=== PATIENT | male | born 1960 | race Caucasian/White ===

== ENCOUNTER 2022-12-05 14:17 | Emergency (ER) | payer BC, SELFPAY ==
[2022-12-05 14:26] VITALS: BP 142/64; PULSE 83; RESP 18; TEMP 36.4; O2SAT 96; BMI 34.5
[2022-12-05 14:54] VITALS: PULSE 85
--- NOTE | 2022-12-05 14:56 | ED.SOB1 ---
HPI - SOB/Dyspnea General Chief Complaint: Shortness of Breath/Dyspnea Stated Complaint: SOB Time Seen by Provider: 12/05/22 14:47 Source: patient Mode of arrival: walk-in Limitations: no limitations History of Present Illness HPI Narrative: patient is a 61-year-old male who presents to the emergency department for several week history of exertional dyspnea. 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 He has had no chest pain. He denies any fevers, cough, congestion. He has not noticed any peripheral edema. He quit smoking four years ago. He denies any history of heart or lung problems. He does not take any medications at home for his breathing. He has not seen a primary care provider as his PCP recently left the area. Related Data Previous Rx's Medication Instructions Recorded albuterol sulfate 90 mcg/actuation 2 inh inhalation Q4H PRN shortness 12/05/22 aerosol inhaler of breath or wheezing #8.5 grams methylprednisolone 4 mg tablets in See Rx Instructions .Route 12/05/22 a dose pack (Medrol (Yasir)) .COMPLEX #21 ea Allergies Allergy/AdvReac Type Severity Reaction Status Date / Time No Known Drug Allergies Allergy Verified 12/05/22 14:26 Review of Systems ROS Constitutional Denies: fever or chills Ears, nose, mouth, and throat Denies: throat pain Cardiovascular Denies: chest pain Respiratory Reports: shortness of breath; Denies: cough Gastrointestinal Denies: nausea or vomiting Genitourinary Denies: painful urination Musculoskeletal Denies: back pain Integumentary/Breast Denies: rash Neurological Denies: headache Hematologic/Lymphatic Denies: easy bruising Exam Narrative Exam Narrative: Gen.: Awake, alert, in no distress Head: Normocephalic, atraumatic ENT: Moist mucous membranes Respiratory: No respiratory distress, lungs clear bilaterally Cardio: Regular rate and rhythm Extremities: Moves extremities equally, no pedal edema Psych: Normal mood and affect Neuro: No focal neuro deficit Skin: Warm, dry, intact Constitutional Vital Signs, click to edit/add: Last Vital Signs Temp 97.6 F 12/05/22 14:26 Pulse 83 12/05/22 14:26 Resp 18 12/05/22 14:26 BP 142/64 H 12/05/22 14:26 Pulse Ox 96 12/05/22 14:26 O2 Del Method Room Air 12/05/22 14:26 Course Vital Signs Vital signs: Vital Signs Temperature 97.6 F 12/05/22 14:26 Pulse Rate 83 12/05/22 14:26 Respiratory Rate 18 12/05/22 14:26 Blood Pressure 142/64 H 12/05/22 14:26 Pulse Oximetry 96 12/05/22 14:26 Oxygen Delivery Method Room Air 12/05/22 14:26 Temperature 97.6 F 12/05/22 14:26 Pulse Rate 83 12/05/22 14:26 Respiratory Rate 18 12/05/22 14:26 Blood Pressure 142/64 H 12/05/22 14:26 Pulse Oximetry 96 12/05/22 14:26 Oxygen Delivery Method Room Air 12/05/22 14:26 MDM - SOB/Dyspnea MDM Narrative Medical decision making narrative: laboratory studies including d-dimer, troponin and BNP are all within normal limits. Patient has stable vital signs in the Emergency Room. Chest x-ray shows suggestion of chronic obstructive pulmonary disease. Patient denied initially any history of chronic obstructive pulmonary disease or asthma. He was made aware that the symptoms may be consistent with chronic obstructive pulmonary disease and he will be placed on an albuterol inhaler as needed as well as Medrol Dosepak. He was reevaluated by attending physician prior to discharge. He is given a follow-up list of PCPs in the area that he can see, return to the Emergency Room if symptoms change or worsen. Medical Records Attestation: I reviewed the patient's medical records. Lab Data Attestation: I reviewed the patient's lab results. Labs: Lab Results 12/05/22 Range/Units 14:58 WBC 5.8 (4.0-11.0) 10^3/uL RBC 4.73 (4.70-6.10) 10^6/uL Hgb 13.7 L (14.0-18.0) g/dL Hct 40.2 L (42.0-54.0) % MCV 85.0 (80.0-94.0) fL MCH 29.0 (25.9-34.0) pg MCHC 34.1 (29.9-35.2) g/dL RDW 12.1 (11.0-15.0) % Plt Count 191 (150-450) 10^3/uL MPV 11.2 (9.5-13.5) fL Neut % (Auto) 64.5 (43.0-75.0) % Lymph % (Auto) 19.9 L (20.5-60.0) % [place] % (Auto) 13.7 H (1.7-12.0) % Eos % (Auto) 1.4 (0.9-7.0) % Baso % (Auto) 0.3 (0.2-2.0) % Neut # (Auto) 3.8 (1.4-6.5) 10^3/uL Lymph # (Auto) 1.2 (1.2-3.8) 10^3/uL [place] # (Auto) 0.8 (0.3-0.8) 10^3/uL Eos # (Auto) 0.1 (0.0-0.7) 10^3/uL Baso # (Auto) 0.0 (0.0-0.1) 10^3/uL Abs Immat Gran (auto) 0.01 (0.00-0.03) 10^3/uL Imm/Tot Granulo (auto) 0.2 (0.0-0.5) % PT 11.3 (9.0-11.6) sec INR 1.07 APTT 26.2 (22.3-36.2) sec D-Dimer 0.56 (<=0.59) mg/L FEU Sodium 142 (136-145) mmol/L Potassium 4.2 (3.5-5.1) mmol/L Chloride 104 (98-107) mmol/L Carbon Dioxide 29.4 (21.0-32.0) mmol/L Anion Gap 12.8 BUN 22.0 H (7.0-18.0) mg/dL Creatinine 1.00 (0.70-1.30) mg/dL Est GFR ( Amer) >60 (>=60) Est GFR (Non-Af Amer) >60 (>=60) BUN/Creatinine Ratio 22.0 Glucose 108 H (74-106) mg/dL Calcium 8.8 (8.5-10.1) mg/dL Total Bilirubin 0.4 (0.2-1.0) mg/dL AST 20 (15-37) U/L ALT 28 (16-63) U/L Alkaline Phosphatase 66 (46-116) U/L Troponin I High Sens 13.6 (4.0-76.1) pg/mL NT-Pro-B Natriuret Pep 118.0 (<=900.0) pg/mL Total Protein 7.1 (6.4-8.2) g/dL Albumin 3.4 (3.4-5.0) g/dL Globulin 3.7 g/dL Albumin/Globulin Ratio 0.9 Imaging Data Chest x-ray: Attestation: I have reviewed the pertinent imaging results. Radiologist's impression: Procedure: XR chest 2V EXAM: XR chest 2V HISTORY: Shortness of breath COMPARISON: 07/17/2019 TECHNIQUE: Upright PA and lateral chest x-ray FINDINGS: The heart is not enlarged and the vasculature is not distended. Very slight patchy interstitial changes are seen in the right midlung and the left lower lung, and these remain unchanged and presumably chronic in nature. There is no evidence of an acute infiltrate, effusion or pneumothorax. Mild flattening of the hemidiaphragms suggest COPD. The osseous structures are grossly intact. IMPRESSION: Some chronic changes are present in the lungs. There is no clear evidence of an acute infiltrate or overt cardiac decompensation, and the overall appearance of the chest is essentially unchanged. Electronically authenticated by: MATT COELLO Date: 12/05/2022 16:15 ECG Data Attestation: I personally reviewed and interpreted this ECG as follows: (normal sinus rhythm at a rate of eighty-five, no acute ST elevation or ectopy. EKG reviewed by attending physician) ECG interpretation date: 12/05/22 ECG interpretation time: 14:58 Discharge Plan Discharge Chief Complaint: Shortness of Breath/Dyspnea Clinical Impression: Shortness of breath, COPD exacerbation Patient Disposition: Home, Self-Care Time of Disposition Decision: 16:33 Condition: Good Prescriptions / Home Meds: New methylprednisolone [Medrol (Yasir)] 4 mg tablets,dose pack See Rx Instructions .ROUTE .COMPLEX Qty: 21 0RF Rx Instructions: Taper as directed albuterol sulfate 90 mcg/actuation HFA aerosol inhaler 2 inh inhalation Q4H PRN (Reason: shortness of breath or wheezing) Qty: 8.5 0RF Instructions: COPD (Chronic Obstructive Pulmonary Disease) (ED), Shortness of Breath (ED) Stand Alone Forms: Portal Instructions Referrals: Physician,Non-Staff, MD [Primary Care Provider] - 1 week
[2022-12-05 15:06] LABS: Basophils Percent Auto 0.3 % (0.2-2.0); Eosinophils Absolute Auto 0.1 10^3/uL (0.0-0.7); Eosinophils Percent Auto 1.4 % (0.9-7.0); Hematocrit 40.2 % (42.0-54.0); Hemoglobin 13.7 g/dL (14.0-18.0); Immature Granulocytes Abs Auto 0.01 10^3/uL (0.00-0.03); Immature Granulocytes Pct Auto 0.2 % (0.0-0.5); Lymphocytes Absolute Auto 1.2 10^3/uL (1.2-3.8); Lymphocytes Percent Auto 19.9 % (20.5-60.0); Mean Corpuscular HGB Conc 34.1 g/dL (29.9-35.2); Mean Platelet Volume 11.2 fL (9.5-13.5); Monocytes Absolute Auto 0.8 10^3/uL (0.3-0.8); Monocytes Percent Auto 13.7 % (1.7-12.0); Neutrophils Absolute Auto 3.8 10^3/uL (1.4-6.5); Neutrophils Percent Auto 64.5 % (43.0-75.0); Platelet Count 191 10^3/uL (150-450); Red Blood Count 4.73 10^6/uL (4.70-6.10); Red Cell Distribution Width 12.1 % (11.0-15.0); White Blood Count 5.8 10^3/uL (4.0-11.0)
[2022-12-05 15:18] LABS: D Dimer 0.56 mg/L FEU (<=0.59); INR 1.07; Partial Thromboplastin Time 26.2 sec (22.3-36.2); Prothrombin Time 11.3 sec (9.0-11.6)
[2022-12-05 15:28] LABS: Alanine Aminotransferase 28 U/L (16-63); Albumin Globulin Ratio 0.9; Albumin Level 3.4 g/dL (3.4-5.0); Alkaline Phosphatase 66 U/L (46-116); Anion Gap 12.8; Aspartate Amino Transferase 20 U/L (15-37); Bilirubin Total 0.4 mg/dL (0.2-1.0); Calcium 8.8 mg/dL (8.5-10.1); Carbon Dioxide 29.4 mmol/L (21.0-32.0); Chloride 104 mmol/L (98-107); Estimated GFR (African America >60 (>=60); Estimated GFR (Non-African Ame >60 (>=60); Globulin 3.7 g/dL; Glucose 108 mg/dL (74-106); Potassium 4.2 mmol/L (3.5-5.1); Sodium 142 mmol/L (136-145); Total Protein 7.1 g/dL (6.4-8.2); Troponin I High Sensitivity 13.6 pg/mL (4.0-76.1)
--- NOTE | 2022-12-05 15:29 | XR_ITS ---
The [address] [address] Patient Name: ALEX PADILLA MRN: [id number] date: 1960 Sex: M Assigned Patient Location: ER Current Patient Location: ER Accession/Order Number: [id number] Exam Date: 12/05/2022 15:55 Report Date: 12/05/2022 16:15 At the request of: SOFIA DARNELL Procedure: XR chest 2V EXAM: XR chest 2V HISTORY: Shortness of breath COMPARISON: 07/17/2019 TECHNIQUE: Upright PA and lateral chest x-ray FINDINGS: The heart is not enlarged and the vasculature is not distended. Very slight patchy interstitial changes are seen in the right midlung and the left lower lung, and these remain unchanged and presumably chronic in nature. There is no evidence of an acute infiltrate, effusion or pneumothorax. Mild flattening of the hemidiaphragms suggest COPD. The osseous structures are grossly intact. XR/XR chest 2V IMPRESSION: Some chronic changes are present in the lungs. There is no clear evidence of an acute infiltrate or overt cardiac decompensation, and the overall appearance of the chest is essentially unchanged. Electronically authenticated by: MATT COELLO Date: 12/05/2022 16:15
[2022-12-05 16:43] VITALS: BP 140/60; PULSE 880; RESP 18; O2SAT 98
--- NOTE | 2022-12-05 18:39 | ECG_ITS ---
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
== END 2022-12-05 16:44 | disposition home or self-care (01) ==
PROVIDERS: Physician Assistant; Emergency Provider Emergency Medicine
DX: J44.1 Chronic obstructive pulmonary disease with (acute) exacerbation (principal); R06.02 Shortness of breath; Z87.891 Personal history of nicotine dependence
CPT/HCPCS: 36415; 71046; 80053; 83880; 84484; 85025; 85378; 85610; 85730; 93005; 99284

== ENCOUNTER 2022-12-22 07:50 | Outpatient (OUT) | payer BC, SELFPAY ==
--- NOTE | 2022-12-22 07:52 | CT_ITS ---
The [address] [address] Patient Name: ALEX PADILLA MRN: [id number] date: 1960 Sex: M Assigned Patient Location: CT Current Patient Location: CT Accession/Order Number: [id number] Exam Date: 12/22/2022 08:00 Report Date: 12/22/2022 08:29 At the request of: ADALGISA RASCON Procedure: CT lung screening low-dose EXAMINATION: CT lung screening low-dose HISTORY: Shortness Of Breath COMPARISON: No relevant comparison available. TECHNIQUE: Axial, Coronal, and Sagittal images were created without the administration of IV contrast material. Dose reduction techniques were achieved by using automated exposure control and/or adjustment of mA and/or kV according to patient size and/or use of iterative reconstruction technique. FINDINGS: LUNGS: Scattered subcentimeter noncalcified pulmonary nodules the largest measures 5 mm right middle lobe axial image #119 6 mm in the lingula, axial image 104. Minimal centrilobular emphysema with an upper lobe predominance PLEURA: Calcified pleural plaques posterior left lung suggests prior asbestos exposure VASCULATURE: No abnormality. MARIA ISABEL: No mass or pathologic adenopathy. MEDIASTINUM: No mass or pathologic adenopathy. CARDIAC: No enlargement, pericardial thickening, or significant calcification. AORTA: No aneurysm or dissection. CHEST WALL: No mass or axillary adenopathy BONES: No bone lesion or fracture. LIMITED ABDOMEN: No suspicious findings. Limited images of the upper abdomen. OTHER: Negative. CT/CT lung screening low-dose IMPRESSION: LUNG SCREENING: Lung-RADS Category 2- Benign Appearance or Behavior. Nodules with a very low likelihood of becoming a clinically active cancer due to size or lack of growth. 2. Continue annual screening with LDCT in 12 months. Electronically authenticated by: KORY SEWELL Date: 12/22/2022 08:29
--- NOTE | 2022-12-22 08:30 | RT_ITS ---
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 Findings were considered accurate and reproducible. Both pre- and post-bronchodilator values utilized for spirometry. Due to software limitations, no prior studies (if performed previously) are currently available for comparison. Spirometry (based on pre-bronchodilator values): -FEV1/FVC: Reduced @ 45% -FEV1: Severely reduced @ 41% -FVC: Reduced @ 69% -There is a positive bronchodilator response in FEV1 and FVC. Lung volumes by plethysmography (based on pre-bronchodilator values): -RV: Increased @ 515% -TLC: Increased @ 218% Diffusion capacity: -DLCO: Mild reduction @ 71% when corrected for Hb 13.7g/dL Flow-volume loop: -Severe obstructive pattern Flow-pressure loop: ???Emphysematous pattern Impressions: -Spirometry suggests severe obstruction with a positive bronchodilator response. An elevated RV and TLC suggest air trapping and hyperinflation respectively. There is a mildly reduced diffusion capacity. Overall study is compatible with asthma-COPD overlap or COPD with a positive bronchidlator response. Clinical correlation required. Electronically Signed On 01-02-2023 16:07:11 EDT by Vasquez Pritchett
[2022-12-22 09:22] VITALS: PULSE 88; RESP 20; O2SAT 94
[2022-12-22] MEDS: ALBUTEROL SULFATE 2.5 MG/3 ML VIAL NEB IH (09:22)
== END 2022-12-22 07:51 | disposition home or self-care (01) ==
LOC: CT 07:51
PROVIDERS: Visit Provider Internal Medicine
DX: R06.02 Shortness of breath (principal); Z87.891 Personal history of nicotine dependence
CPT/HCPCS: 71271; 94060; 94726; 94729

== ENCOUNTER 2022-12-27 09:07 | Outpatient (OUT) | payer BC, SELFPAY ==
[2022-12-27 09:18] LABS: Basophils Percent Auto 0.3 % (0.2-2.0); Eosinophils Absolute Auto 0.2 10^3/uL (0.0-0.7); Eosinophils Percent Auto 2.5 % (0.9-7.0); Hematocrit 42.5 % (42.0-54.0); Hemoglobin 14.3 g/dL (14.0-18.0); Immature Granulocytes Abs Auto 0.01 10^3/uL (0.00-0.03); Immature Granulocytes Pct Auto 0.1 % (0.0-0.5); Lymphocytes Absolute Auto 1.3 10^3/uL (1.2-3.8); Lymphocytes Percent Auto 18.9 % (20.5-60.0); Mean Corpuscular HGB Conc 33.6 g/dL (29.9-35.2); Mean Corpuscular Hemoglobin 27.3 pg (25.9-34.0); Mean Corpuscular Volume 81.3 fL (80.0-94.0); Mean Platelet Volume 11.1 fL (9.5-13.5); Monocytes Absolute Auto 0.7 10^3/uL (0.3-0.8); Monocytes Percent Auto 10.7 % (1.7-12.0); Neutrophils Absolute Auto 4.6 10^3/uL (1.4-6.5); Neutrophils Percent Auto 67.5 % (43.0-75.0); Platelet Count 191 10^3/uL (150-450); Red Blood Count 5.23 10^6/uL (4.70-6.10); Red Cell Distribution Width 11.8 % (11.0-15.0); White Blood Count 6.8 10^3/uL (4.0-11.0)
[2022-12-27 09:33] LABS: Alanine Aminotransferase 40 U/L (16-63); Albumin Globulin Ratio 0.9; Albumin Level 3.2 g/dL (3.4-5.0); Alkaline Phosphatase 82 U/L (46-116); Anion Gap 11.4; Aspartate Amino Transferase 19 U/L (15-37); BUN Creatinine Ratio 20.2; Bilirubin Total 0.6 mg/dL (0.2-1.0); Calcium 9.8 mg/dL (8.5-10.1); Carbon Dioxide 28.7 mmol/L (21.0-32.0); Chloride 105 mmol/L (98-107); Estimated GFR (African America >60 (>=60); Estimated GFR (Non-African Ame >60 (>=60); Globulin 3.7 g/dL; Glucose 110 mg/dL (74-106); Potassium 4.1 mmol/L (3.5-5.1); Sodium 141 mmol/L (136-145); Total Protein 6.9 g/dL (6.4-8.2)
[2022-12-27 09:39] LABS: Estimated Average Glucose 108 mg/dL; Glycohemoglobin A1C 5.4 % (4.5-6.2)
[2022-12-27 09:55] LABS: Chol HDL Ratio 1.9; Cholesterol 74 mg/dL (<=200); HDL Cholesterol 38 mg/dL (40-60); Thyroid Stimulating Hormone <0.007 uIU/mL (0.358-3.740); Triglycerides 92 mg/dL (<=150); VLDL CHOLESTEROL 18.4 mg/dL
[2022-12-27 11:28] LABS: Free T4 4.91 ng/dL (0.76-1.46)
== END 2022-12-27 09:08 | disposition home or self-care (01) ==
LOC: LAB 09:07
PROVIDERS: PCP Nurse Practitioner Family; Visit Provider Nurse Practitioner Family
DX: R61 Generalized hyperhidrosis (principal); R73.01 Impaired fasting glucose; Z13.228 Encounter for screening for other metabolic disorders; Z13.0 Encounter for screening for diseases of the blood and blood-forming organs and certain disorders involving the immune mechanism; Z13.220 Encounter for screening for lipoid disorders
CPT/HCPCS: 36415; 80053; 80061; 83036; 84439; 84443; 85025

== ENCOUNTER 2023-01-03 08:44 | Outpatient (OUT) | payer BC, SELFPAY ==
[2023-01-03 09:02] LABS: Basophils Percent Auto 0.3 % (0.2-2.0); Eosinophils Absolute Auto 0.2 10^3/uL (0.0-0.7); Hematocrit 38.3 % (42.0-54.0); Hemoglobin 12.7 g/dL (14.0-18.0); Immature Granulocytes Abs Auto 0.02 10^3/uL (0.00-0.03); Immature Granulocytes Pct Auto 0.3 % (0.0-0.5); Lymphocytes Absolute Auto 1.4 10^3/uL (1.2-3.8); Lymphocytes Percent Auto 19.2 % (20.5-60.0); Mean Corpuscular HGB Conc 33.2 g/dL (29.9-35.2); Mean Corpuscular Hemoglobin 27.1 pg (25.9-34.0); Mean Corpuscular Volume 81.7 fL (80.0-94.0); Mean Platelet Volume 10.9 fL (9.5-13.5); Monocytes Percent Auto 14.5 % (1.7-12.0); Neutrophils Absolute Auto 4.4 10^3/uL (1.4-6.5); Neutrophils Percent Auto 62.7 % (43.0-75.0); Platelet Count 211 10^3/uL (150-450); Red Blood Count 4.69 10^6/uL (4.70-6.10); Red Cell Distribution Width 11.9 % (11.0-15.0); White Blood Count 7.1 10^3/uL (4.0-11.0)
[2023-01-06 04:07] LABS: Immunoglobulin E, Total 5 IU/mL (6-495)
== END 2023-01-03 08:45 | disposition home or self-care (01) ==
LOC: LAB 08:46
PROVIDERS: PCP Nurse Practitioner Family; Visit Provider Internal Medicine
DX: J45.40 Moderate persistent asthma, uncomplicated (principal)
CPT/HCPCS: 36415; 82785; 85025

== ENCOUNTER 2023-01-16 14:22 | Outpatient (OUT) | payer BC, SELFPAY ==
[2023-01-16 16:01] LABS: Alanine Aminotransferase 34 U/L (16-63); Albumin Globulin Ratio 0.9; Albumin Level 3.1 g/dL (3.4-5.0); Alkaline Phosphatase 100 U/L (46-116); Aspartate Amino Transferase 16 U/L (15-37); Bilirubin Direct 0.1 mg/dL (0.0-0.2); Bilirubin Total 0.3 mg/dL (0.2-1.0); Free T3 17.33 pg/mL (2.18-3.98); Globulin 3.6 g/dL; Thyroid Stimulating Hormone <0.007 uIU/mL (0.358-3.740); Total Protein 6.7 g/dL (6.4-8.2)
[2023-01-16 16:32] LABS: Free T4 3.92 ng/dL (0.76-1.46)
[2023-01-17 18:07] LABS: Thyroglobulin Antibody <1.0 IU/mL (0.0-0.9); Thyroid Peroxidase (TPO) Ab 13 IU/mL (0-34)
== END 2023-01-16 14:23 | disposition home or self-care (01) ==
LOC: LAB 14:24
PROVIDERS: PCP Nurse Practitioner Family; Visit Provider Internal Medicine
DX: E05.90 Thyrotoxicosis, unspecified without thyrotoxic crisis or storm (principal)
CPT/HCPCS: 36415; 80076; 84439; 84443; 84481; 86376; 86800

== ENCOUNTER 2023-01-19 13:55 | Outpatient (OUT) | payer BC, SELFPAY ==
--- NOTE | 2023-01-19 13:58 | US_ITS ---
The [address] [address] Patient Name: ALEX PADILLA MRN: [id number] date: 1960 Sex: M Assigned Patient Location: US Current Patient Location: Accession/Order Number: [id number] Exam Date: 01/19/2023 14:00 Report Date: 01/20/2023 09:24 At the request of: SWATI NEWBY Procedure: US thyroid EXAMINATION: US thyroid HISTORY: Thyrotoxicosis E05.90 COMPARISON: No relevant comparison available. TECHNIQUE: Sonographic images of the thyroid gland were obtained. FINDINGS: The right thyroid lobe measures 7.1 x 2.6 x 3.5 cm. Heterogeneous echotexture. No focal nodule. The thyroid isthmus measures 3.2 mm, heterogeneous. No focal nodule The left thyroid lobe measures 5.3 x 2.7 x 3.0 cm. Heterogeneous echotexture. No significant nodules over 5 mm US/US thyroid IMPRESSION: Enlarged heterogeneous thyroid gland with no significant nodules Electronically authenticated by: KORY SEWELL Date: 01/20/2023 09:24
== END 2023-01-19 13:56 | disposition home or self-care (01) ==
LOC: US 13:55
PROVIDERS: PCP Nurse Practitioner Family; Visit Provider Internal Medicine
DX: E05.90 Thyrotoxicosis, unspecified without thyrotoxic crisis or storm (principal); E04.9 Nontoxic goiter, unspecified
CPT/HCPCS: 76536

== ENCOUNTER 2023-12-25 15:35 | Outpatient (OUT) | payer OTHER, SELFPAY ==
--- OUTSIDE RECORDS SUMMARY | 2023-12-25 15:39 | XMS_ITS | CCD ---
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 Name Role Phone HOUSE, DR WILKINS Attending Unavailable HOUSE, DR WILKINS Consulting Unavailable HOUSE, DR WILKINS Primary Care Unavailable DANNY, DR WILKINS Admitting Unavailable Giovany Krishna Unavailable MD Giovany Krishna Attending Provider [phone] DO Len Delgado Primary Care Provider [phone] DO Len Delgado Attending Provider [phone] MD Giovany Krishna Attending Provider JUNIOR Ann Attending Provider [phone] Milagro Ann Unavailable Tracy Wong Unavailable Milagro Mejias Unavailable MIGUEL Mejias Primary Care Provider MIGUEL Mejias Attending Provider MIGUEL Mejias Primary Care Provider MIGUEL Mejias Attending Provider MD Kourtney Woods Other Provider MIGUEL Mejias Primary Care Provider MD Kourtney Woods Attending Provider [phone] Milagro Mejias Attending Unavailable Milagro Mejias Admitting Unavailable Milagro Mejias Primary Care Unavailable Kourtney Woods Admitting Unavailable Kourtney Woods Attending Unavailable Milagro Mejias Primary Care Unavailable Milagro Mejias Admitting Unavailable Kourtney Woods Consulting Unavailable Milagro Mejias Primary Care Unavailable Milagro Mejias Attending Unavailable Milagro Mejias Attending Unavailable Milagro Mejias Admitting Unavailable Milagro Mejias Primary Care Unavailable Medications Current Medications Medication Drug Class(es) Dates Sig (Normalized) Sig (Original) acetaminophen 325 mg / HYDROcodone bitartrate 5 mg oral tablet (3 sources) Opioid Agonist Start: 04-18-2022 take 1 tablet by mouth every four hours as needed for pain HYDROcodone-Aceta minophen 5-325 MG 1 tablet as needed for pain Orally up to every 4 hrs for 5 days ENZO: [id number] Mar, Active [id number] actuat albuterol 0.09 mg/actuat metered dose inhaler (8 sources) beta2-Adrenergic Agonist Start: 05-29-2023 take 1 puff(s) by inhalation every four hours Albuterol Sulfate Active 1 PUFF INHALATION Every 4 hours May 29, 2023 12:00am take 1 puff(s) by in halation every four hours as needed Albuterol Sulfate HFA 108 (90 Base) MCG/ACT 1 puff as needed Inhalation every 4 hrs Active take 1 puff(s) by in halation every four hours as needed Albuterol Sulfate HFA 108 (90 Base) MCG/ACT 1 puff as needed Inhalation every 4 hrs Active take 1 puff(s) by in halation every four hours as needed Albuterol Sulfate HFA 108 (90 Base) MCG/ACT 1 puff as needed Inhalation every 4 hrs Active azithromycin 250 mg oral tablet (4 sources) Macrolide Antimicrobial Start: 05-29-2023 Azithromycin Active 250 MG PO daily 6 May 29, 2023 12:00am Take 2 on the 1st day and then 1 for the next 4 days. Start: 10-15-2022 Azithromycin 2 50 MG 2 tablet on first day, 1 tablet daily for 4 days Orally daily for 5 days Sep, Active diclofenac sodium 75 mg delayed release oral tablet (5 sources) Nonsteroidal Anti-inflammatory Drug Start: 05-13-2022 take 1 tablet by mouth every twelve hours Diclofenac Sodium 75 MG 1 tablet as needed Orally Twice a day for 30 days Apr, Active doxycycline monohydrate 100 mg oral capsule (1 source) Tetracycline-class Drug Start: 04-06-2023 take 1 capsule by mouth every twelve hours Doxycycline Monohydrate 100 MG 1 capsule Orally Twice a day for 10 days Mar, Active Fluticasone-Umecl idin-Vilanter (3 sources) Anticholinergic, Corticosteroid, beta2-Adrenergic Agonist Start: 05-29-2023 Fluticasone-Umec lidin-Vilanter (Trelegy Ellipta) 100-62.5-25 mcg blister with device Active 1 INH INHALATION Daily May 29, 2023 12:00am take 1 puff(s) by inhalation onc e daily Trelegy Ellipta 100-62.5-25 MCG/ACT 1 puff Inhalation Once a day Active omeprazole 20 mg delayed release oral tablet (16 sources) Proton Pump Inhibitor take 1 tablet by mouth every twenty-four hours PriLOSEC OTC 20 MG 1 tablet Orally Once a day for 90 days Active take 1 tablet by mouth once vikram y PriLOSEC OTC 20 MG 1 tablet Orally Once a day for 90 days Active Omeprazole Magnesium (Prilosec Otc) 20 mg Tablet,Delayed Release (Dr/Ec) (6 sources) Start: 04-07-2022 take 1 tablet by mouth once daily in the morning Omeprazole Magnesium (Prilosec Otc) 20 mg Tablet,Delayed Release (Dr/Ec) Active 20 MG PO Every morning April 07, 2022 1:00am Start: 04-07-2022 take 1 tablet by al th once daily in the morning Omeprazole Magnesium (Prilosec Otc) 20 mg Tablet,Delayed Release (Dr/Ec) Active 20 MG PO Every morning April 07, 2022 12:00am pioglitazone 30 mg oral tablet (20 sources) Peroxisome Proliferator Receptor alpha Agonist, Peroxisome Proliferator Receptor gamma Agonist, Thiazolidinedione Start: 04-07-2022 take 30 mg by mouth once daily in the morning Pioglitazone Active 30 MG PO Every morning April 07, 2022 1:00am Completed/Discontinued Medications Medication Drug Class(es) Dates Sig (Normalized) Sig (Original) triamcinolone acetonide 40 mg/ml injectable suspension (16 sources) Corticosteroid Start: 01-06-2022 Kenalog-40 20 Dec, 2021 40 mg Problems Active Problems Problem Classification Problem Date Documented Date Episodic/Chronic Asthma (2 sources) Asthma-chronic obstructive pulmonary disease overlap syndrome; Translations: [Asthma-chronic obstructive pulmonary disease overlap syndrome] 05-29-2023 Chronic Chronic obstructive pulmonary disease and bronchiectasis (2 sources) Acute exacerbation of chronic obstructive airways disease; Translations: [Chronic obstructive pulmonary disease with (acute) exacerbation] Chronic Chronic obstructive pulmonary disease and bronchiectasis (4 sources) Bronchitis, not specified as acute or chronic; Translations: [Bronchitis] Episodic Diabetes mellitus without complication (6 sources) Type 2 diabetes mellitus without complications; Translations: [Diabetes mellitus] Onset: 11-04-2021 Chronic Headache; including migraine (1 source) Headache; including migraine; Translations: [Headache, unspecified] Onset: 01-04-2023 Heart valve disorders (1 source) Cardiac murmur, unspecified Episodic Hyperplasia of prostate (1 source) Benign prostatic hyperplasia without lower urinary tract symptoms; Translations: [BENIGN PROSTATIC HYPRPLASIA WO LUTS] Onset: 11-05-2021 Chronic Other connective tissue disease (5 sources) Lateral epicondylitis, left elbow Episodic Other lower respiratory disease (1 source) Unspecified acute lower respiratory infection Episodic Other lower respiratory disease (1 source) Shortness of breath Episodic Other nervous system disorders (16 sources) Radial tunnel syndrome; Translations: [Lesion of radial nerve, left upper limb] Chronic Other nervous system disorders (1 source) Lesion of radial nerve, left upper limb Chronic Other non-traumatic joint disorders (2 sources) Pain in left elbow Episodic Other skin disorders (1 source) Generalized hyperhidrosis Episodic Residual codes; unclassified (5 sources) Other specified postprocedural states Episodic Thyroid disorders (3 sources) Hyperthyroidism; Translations: [Thyrotoxicosis, unspecified without thyrotoxic crisis or storm] Onset: 10-30-2023 05-29-2023 Chronic Past or Other Problems Problem Classification Problem Date Documented Da te Episodic/Chronic Diabetes mellitus without complication (2 sources) Impaired fasting glucose; Translations: [Impaired fasting glucose] Onset: 07-03-2023 Episodic Other lower respiratory disease (1 source) Shortness of breath; Translations: [Shortness of breath] Onset: 01-05-2023 Episodic Other screening for suspected conditions (not mental disorders or infectious disease) (6 sources) Encounter for screening for other metabolic disorders; Translations: [Encounter for screening for lipoid disorders] Onset: 07-03-2023 Episodic Unclassified (1 source) New onset of headaches after age 52 R51.9 Results Test Name Value Interpretation Reference Range Facility Alanine aminotransferase [En zymatic activity/volume] in Serum or PlasmaOrdered By: Kourtney Woods on 10-30-2023 ALT [Catalytic activity/Vol] 22 U/L Normal 7-52 [facility] Comment on above: Order Comment: NONFA STING. JKW Performed By: #### T 4F, HEPATIC, T3F, TSH3 #### [facility] [address] Albumin [Mass/volume] in Ser um or Plasma by Bromocresol green (BCG) dye binding methoOrdered By: Kourtney Woods on 10-30-2023 Albumin BCG dye [Mass/Vol] 4.5 g/dL 3.5-5.7 [facility] Alkaline phosphatase [Enzyma tic activity/volume] in Serum or PlasmaOrdered By: Kourtney Woods on 10-30-2023 ALP [Catalytic activity/Vol] 78 U/L Normal 34-104 [facility] Comment on above: Order Comment: NONFA STING. JKW Performed By: #### T 4F, HEPATIC, T3F, TSH3 #### [facility] [address] Aspartate aminotransferase [ Enzymatic activity/volume] in Serum or PlasmaOrdered By: Kourtney Woods on 10-30-2023 AST [Catalytic activity/Vol] 24 U/L Normal 13-39 [facility] Comment on above: Order Comment: NONFA STING. JKW Performed By: #### T 4F, HEPATIC, T3F, TSH3 #### [facility] [address] Bilirubin.direct [Mass/volum e] in Serum or PlasmaOrdered By: Kourtney Woods on 10-30-2023 Bilirubin.direct [Mass/Vol] 0.10 mg/dL 0.03-0.18 [facility] Bilirubin.total [Mass/volume ] in Serum or PlasmaOrdered By: Kourtney Woods on 10-30-2023 Bilirubin [Mass/Vol] 0.6 mg/dL Normal 0.3-1.0 [facility] Comment on above: Order Comment: NONFA STING. JKW Performed By: #### T 4F, HEPATIC, T3F, TSH3 #### [facility] [address] Hepatic Panelon 10-30-2023 Albumin [Mass/Vol] 4.5 g/dL Normal 3.5-5.7 [facility] Comment on above: Order Comment: NONFA STING. JKW Performed By: #### T 4F, HEPATIC, T3F, TSH3 #### [facility] [address] Bilirubin,Indirect 0.5 mg/dL Normal [facility] Comment on above: Order Comment: NONFA STING. JKW Performed By: #### T 4F, HEPATIC, T3F, TSH3 #### [facility] [address] Bilirubin.indirect [Mass/Vol] 0.10 mg/dL Normal 0.03-0.18 [facility] Comment on above: Order Comment: NONFA STING. JKW Performed By: #### T 4F, HEPATIC, T3F, TSH3 #### [address] Protein [Mass/volume] in Ser um or PlasmaOrdered By: Kourtney Woods on 10-30-2023 Protein [Mass/Vol] 6.9 g/dL Normal 6.4-8.9 [facility] Comment on above: Order Comment: NONFA STING. JKW Performed By: #### T 4F, HEPATIC, T3F, TSH3 #### [facility] [address] [place] [id number] [facility] Serum globulin measurement b y calculation (mass/volume)Ordered By: Kourtney Woods on 10-30-2023 Globulin (S) [Mass/Vol] 2.4 g/dL Normal [facility] Comment on above: Order Comment: NONFA STING. JKW Performed By: #### T 4F, HEPATIC, T3F, TSH3 #### [facility] [address] Serum or plasma albumin/glob ulin mass ratioOrdered By: Kourtney Woods on 10-30-2023 Albumin/Globulin [Mass ratio] 1.9 {ratio} Normal [facility] Comment on above: Order Comment: NONFA STING. JKW Performed By: #### T 4F, HEPATIC, T3F, TSH3 #### [facility] [address] Serum or plasma non-glucuron idated bilirubin measurement (mass/volume)Ordered By: Kourtney Woods on 10-30-2023 Bilirubin.indirect [Mass/Vol] 0.5 mg/dL [facility] Thyrotropin [Units/volume] i n Serum or PlasmaOrdered By: Kourtney Woods on 10-30-2023 TSH Qn 2.62 m[IU]/L Normal 0.45-5.33 [facility] Comment on above: Order Comment: Reaso n for Exam Screening for lipid disorders Reason for Exam Screening for metabolic disorder Result Comment: PERF ORMED BY: [address] [place] [address] PATHOLOGIST CHARTER REPRESENTATIVE JOVITA WATSON M.D. Performed By: #### A 1C WT eA, CMP, LIPID, CBC #### [facility] [address] [place] [address] Thyroxine (T4) free [Mass/vo lume] in Serum or PlasmaOrdered By: Kourtney Woods on 10-30-2023 Free T4 [Mass/Vol] 0.65 ng/dL Normal 0.61-1.12 [facility] Comment on above: Order Comment: Reaso n for Exam Screening for lipid disorders Reason for Exam Screening for metabolic disorder Performed By: #### A 1C WTH eA, CMP, LIPID, CBC #### [facility] [address] [place] [address] [place] Triiodothyronine (T3) Freeon 10-30-2023 Triiodothyronine (T3) Free 3.22 pg/mL Normal 2.50-3.90 [facility] Comment on above: Order Comment: Reaso n for Exam Screening for lipid disorders Reason for Exam Screening for metabolic disorder Result Comment: PERF ORMED BY: [place] [address] PATHOLOGIST CHARTER REPRESENTATIVE JOVITA WATSON M.D. Performed By: #### A 1C WTH eA, CMP, LIPID, CBC #### [facility] [address] Triiodothyronine (T3) Free [ Mass/volume] in Serum or PlasmaOrdered By: Kourtney Woods on 10-30-2023 Free T3 [Mass/Vol] 3.22 pg/mL 2.50-3.90 [facility] A1C with Estimated Average [facility] Glucose [Mass/Vol] 120 mg/dL Normal [facility] Comment on above: Order Comment: Reaso n for Exam Impaired fasting glucose Result Comment: PERF ORMED BY: [place] [address] PATHOLOGIST CHARTER REPRESENTATIVE JOVITA WATSON M.D. Performed By: #### A 1C WTH eA, CMP, LIPID, CBC #### [address] HbA1c (Bld) [Mass fraction] 5.8 % High 4.3-5.6 [facility] Comment on above: Order Comment: Reaso n for Exam Impaired fasting glucose Result Comment: Incr eased risk for diabetes: 5.7 - 6.4 diabetes: >6.4 glycemic control for adults with diabetes: <7.0 Performed By: #### A 1C WTH eA, CMP, LIPID, CBC #### [place] [address] [place] Alanine aminotransferase [En zymatic activity/volume] in Serum or PlasmaOrdered By: Milagro Mejias on 07-03-2023 ALT [Catalytic activity/Vol] 19 U/L Normal 7-52 [facility] Comment on above: Order Comment: Reaso n for Exam Screening for lipid disorders Reason for Exam Screening for metabolic disorder Performed By: #### A 1C WTH eA, CMP, LIPID, CBC #### [facility] [address] Albumin [Mass/volume] in Ser um or Plasma by Bromocresol green (BCG) dye binding methoOrdered By: Milagro Mejias on 07-03-2023 Albumin BCG dye [Mass/Vol] 4.5 g/dL 3.5-5.7 [facility] Alkaline phosphatase [Enzyma tic activity/volume] in Serum or PlasmaOrdered By: Milagro Mejias on 07-03-2023 ALP [Catalytic activity/Vol] 84 U/L Normal 34-104 [facility] Comment on above: Order Comment: Reaso n for Exam Screening for lipid disorders Reason for Exam Screening for metabolic disorder Performed By: #### A 1C WT eA, CMP, LIPID, CBC #### [facility] [address] Aspartate aminotransferase [ Enzymatic activity/volume] in Serum or PlasmaOrdered By: Milagro Mejias on 07-03-2023 AST [Catalytic activity/Vol] 24 U/L Normal 13-39 [facility] Comment on above: Order Comment: Reaso n for Exam Screening for lipid disorders Reason for Exam Screening for metabolic disorder Performed By: #### A 1C WTH eA, CMP, LIPID, CBC #### [facility] [address] Automated basophil %Ordered By: Milagro Mejias on 07-03-2023 Basophils/100 WBC (Bld) 0.5 % Normal . [facility] Comment on above: Order Comment: Reaso n for Exam Screening for deficiency anemia Performed By: #### A 1C WTH eA, CMP, LIPID, CBC #### [facility] [address] Automated basophil countOrde red By: Milagro Mejias on 07-03-2023 Basophils (Bld) [#/Vol] 0.0 10*3/uL Normal 0.0-0.2 [facility] Comment on above: Order Comment: Reaso n for Exam Screening for deficiency anemia Result Comment: PERF ORMED BY: [place] [address] PATHOLOGIST CHARTER REPRESENTATIVE JOVITA WATSON M.D. Performed By: #### A 1C WTH eA, CMP, LIPID, CBC #### [facility] [address] Automated blood monocyte cou ntOrdered By: Milagro Mejias on 07-03-2023 Monocytes (Bld) [#/Vol] 0.6 10*3/uL Normal 0.0-0.8 [facility] Comment on above: Order Comment: Reaso n for Exam Screening for deficiency anemia Performed By: #### A 1C WTH eA, CMP, LIPID, CBC #### [address] Automated eosinophil %Ordere d By: Milagro Mejias on 07-03-2023 Eosinophils/100 WBC (Bld) 1.6 % Normal . [facility] Comment on above: Order Comment: Reaso n for Exam Screening for deficiency anemia Performed By: #### A 1C WTH eA, CMP, LIPID, CBC #### [address] Automated eosinophil countOr dered By: Milagro Mejias on 07-03-2023 Eosinophils (Bld) [#/Vol] 0.1 10*3/uL Normal 0.0-0.45 [facility] Comment on above: Order Comment: Reaso n for Exam Screening for deficiency anemia Performed By: #### A 1C WTH eA, CMP, LIPID, CBC #### [address] Automated monocyte %Ordered By: Milagro Mejias on 07-03-2023 Monocytes/100 WBC (Bld) 6.9 % Normal . [facility] Comment on above: Order Comment: Reaso n for Exam Screening for deficiency anemia Performed By: #### A 1C WTH eA, CMP, LIPID, CBC #### [address] Automated neutrophil %Ordere d By: Milagro Mejias on 07-03-2023 Neutrophils/100 WBC (Bld) 74.2 % Normal . [facility] Comment on above: Order Comment: Reaso n for Exam Screening for deficiency anemia Performed By: #### A 1C WTH eA, CMP, LIPID, CBC #### [facility] [address] [place] [id number] [place] Bilirubin.total [Mass/volume ] in Serum or PlasmaOrdered By: Milagro Mejias on 07-03-2023 Bilirubin [Mass/Vol] 0.5 mg/dL Normal 0.3-1.0 [facility] Comment on above: Order Comment: Reaso n for Exam Screening for lipid disorders Reason for Exam Screening for metabolic disorder Performed By: #### A 1C WTH eA, CMP, LIPID, CBC #### [facility] [address] [place] [id number] [place] Calcium [Mass/volume] in Ser um or PlasmaOrdered By: Milagro Mejias on 07-03-2023 Calcium [Mass/Vol] 9.7 mg/dL Normal 8.6-10.3 [facility] Comment on above: Order Comment: Reaso n for Exam Screening for lipid disorders Reason for Exam Screening for metabolic disorder Performed By: #### A 1C WTH eA, CMP, LIPID, CBC #### [facility] [address] [place] [id number] [place] Carbon dioxide, total [Moles /volume] in Serum or PlasmaOrdered By: Milagro Mejias on 07-03-2023 CO2 [Moles/Vol] 28.5 mmol/L Normal 21.0-31.0 [facility] Comment on above: Order Comment: Reaso n for Exam Screening for lipid disorders Reason for Exam Screening for metabolic disorder Performed By: #### A 1C WTH eA, CMP, LIPID, CBC #### [facility] [address] [place] [id number] [place] Chloride [Moles/volume] in S brii or PlasmaOrdered By: Milagro Mejias on 07-03-2023 Chloride [Moles/Vol] 103 mmol/L Normal 98-107 [facility] Comment on above: Order Comment: Reaso n for Exam Screening for lipid disorders Reason for Exam Screening for metabolic disorder Performed By: #### A 1C WTH eA, CMP, LIPID, CBC #### [facility] [address] Cholesterol [Mass/volume] in Serum or PlasmaOrdered By: Milagro Mejias on 07-03-2023 Cholesterol [Mass/Vol] 137 mg/dL Low 140-200 [facility] Comment on above: Chol less than 200 m g/dl low riskChol 201-239 mg/dl borderline riskChol 240 mg/dl and greater high risk Order Comment: Reaso n for Exam Screening for lipid disorders Reason for Exam Screening for metabolic disorder Result Comment: Chol less than 200 mg/dl low risk Chol 201-239 mg/dl borderline risk Chol 240 mg/dl and greater high risk Performed By: #### A 1C WTH eA, CMP, LIPID, CBC #### [facility] [address] Cholesterol in LDL Calc [Mas s/Vol]Ordered By: Milagro Mejias on 07-03-2023 Cholesterol in LDL [Mass/Vol] 67 mg/dL 0-100 [facility] Comment on above: LDL ATP III CLASSIFI CATIONLDL less than 100 mg/dL OptimalLDL 100-129 mg/dL Near or above optimalLDL 130-159 mg/dL Borderline highLDL 160-189 mg/dL HighLDL greater than 189 mg/dL Very high Cholesterol in VLDL Calc [Ma ss/Vol]Ordered By: Milagro Mejias on 07-03-2023 Cholesterol in VLDL [Mass/Vol] 32 mg/dL [facility] Complete Blood Count Auto Di ffon 07-03-2023 Mean Corpuscular HGB Conc 33.7 g/dL Normal 32.5-35.6 [facility] Comment on above: Order Comment: Reaso n for Exam Screening for deficiency anemia Performed By: #### A 1C WTH eA, CMP, LIPID, CBC #### [facility] [address] [place] [address] [place] NRBC% 0.1 /100{WBC} Normal 0-0.5 [facility] Comment on above: Order Comment: Reaso n for Exam Screening for deficiency anemia Performed By: #### A 1C WTH eA, CMP, LIPID, CBC #### [facility] [address] Comprehensive Metabolic Pane venecia 07-03-2023 Albumin [Mass/Vol] 4.5 g/dL Normal 3.5-5.7 [facility] Comment on above: Order Comment: Reaso n for Exam Screening for lipid disorders Reason for Exam Screening for metabolic disorder Performed By: #### A 1C WTH eA, CMP, LIPID, CBC #### [facility] [address] GFR/1.73 sq M.predicted MDRD (S/P/Bld) [Vol rate/Area] mL/min/{1.73_m2} Normal [facility] Comment on above: Order Comment: Reaso n for Exam Screening for lipid disorders Reason for Exam Screening for metabolic disorder Performed By: #### A 1C WTH eA, CMP, LIPID, CBC #### [facility] [address] [place] [address] Creatinine [Mass/volume] in Serum or PlasmaOrdered By: Milagro Mejias on 07-03-2023 Creatinine [Mass/Vol] 1.29 mg/dL Normal 0.70-1.30 [facility] Comment on above: Order Comment: Reaso n for Exam Screening for lipid disorders Reason for Exam Screening for metabolic disorder Performed By: #### A 1C WTH eA, CMP, LIPID, CBC #### [facility] [address] [place] [address] Erythrocyte distribution wid th [Ratio] by Automated countOrdered By: Milagro Mejias on 07-03-2023 Erythrocyte distribution width (RBC) [Ratio] 15.6 % High 12.0-14.8 [facility] Comment on above: Order Comment: Reaso n for Exam Screening for deficiency anemia Performed By: #### A 1C WTH eA, CMP, LIPID, CBC #### [facility] [address] [place] [address] [place] Erythrocytes [#/volume] in B lood by Automated countOrdered By: Milagro Mejias on 07-03-2023 RBC (Bld) [#/Vol] 5.50 10*6/uL Normal 3.90-5.60 [facility] Comment on above: Order Comment: Reaso n for Exam Screening for deficiency anemia Performed By: #### A 1C WTH eA, CMP, LIPID, CBC #### [facility] [address] [place] [address] [place] Glucose [Mass/volume] in Ser um or PlasmaOrdered By: Milagro Mejias on 07-03-2023 Glucose [Mass/Vol] 117 mg/dL High 70-100 [facility] Comment on above: ADA recommended refe rence rangeRandom Glucose Reference Range is dependent on time and content of last meal. Glucose of more than 200 mg/dL in a nonstressed, ambulatory subject supports the diagnosis of Diabetes Mellitus. Order Comment: Reaso n for Exam Screening for lipid disorders Reason for Exam Screening for metabolic disorder Result Comment: [place] om Glucose Reference Range is dependent on time and content of last meal. Glucose of more than 200 mg/dL in a nonstressed, ambulatory subject supports the diagnosis of Diabetes Mellitus. ADA recommended reference range Performed By: #### A 1C WTH eA, CMP, LIPID, CBC #### [place] [address] [place] Hematocrit [Volume Fraction] of Blood by Automated countOrdered By: Milagro Mejias on 07-03-2023 Hematocrit (Bld) [Volume fraction] 46.6 % Normal 38.8-50.0 [facility] Comment on above: Order Comment: Reaso n for Exam Screening for deficiency anemia Performed By: #### A 1C WTH eA, CMP, LIPID, CBC #### [facility] [address] [place] [address] [place] Hemoglobin [Mass/volume] in BloodOrdered By: Milagro Mejias on 07-03-2023 Hemoglobin (Bld) [Mass/Vol] 15.7 g/dL Normal 13.0-17.0 [facility] Comment on above: Order Comment: Reaso n for Exam Screening for deficiency anemia Performed By: #### A 1C WTH eA, CMP, LIPID, CBC #### [facility] [address] [place] [id number] [place] Leukocytes [#/volume] correc debbie for nucleated erythrocytes in Blood by Automated counOrdered By: Milagro Mejias on 07-03-2023 WBC corrected for nucl RBC Auto (Bld) [#/Vol] 8.0 10*3/uL 4.1-10.5 [facility] Leukocytes [#/volume] in Blo od by Automated countOrdered By: Milagro Mejias on 07-03-2023 WBC (Bld) [#/Vol] 8.0 10*3/uL Normal 4.1-10.5 [facility] Comment on above: Order Comment: Reaso n for Exam Screening for deficiency anemia Performed By: #### A 1C WTH eA, CMP, LIPID, CBC #### [facility] [address] Lipid Panelon 07-03-2023 LDL Cholesterol,Calculated 67 mg/dL Normal 0-100 [facility] Comment on above: Order Comment: Reaso n for Exam Screening for lipid disorders Reason for Exam Screening for metabolic disorder Result Comment: LDL ATP III CLASSIFICATION LDL less than 100 mg/dL Optimal LDL 100-129 mg/dL Near or above optimal LDL 130-159 mg/dL Borderline high LDL 160-189 mg/dL High LDL greater than 189 mg/dL Very high Performed By: #### A 1C WTH eA, CMP, LIPID, CBC #### [facility] [address] Triglyceride w/Reflex 164 mg/dL High 0-149 [facility] Comment on above: Order Comment: Reaso n for Exam Screening for lipid disorders Reason for Exam Screening for metabolic disorder Result Comment: TRIG ATP III CLASSIFICATION TRIG less than 150 mg/dL Normal TRIG 150-199 mg/dL Borderline high TRIG 200-500 mg/dL High TRIG greater than 500 mg/dL Very high Standard traceable to the Center for Disease Conrtrol and Prevention (CDC) test method. Performed By: #### A 1C WTH eA, CMP, LIPID, CBC #### [facility] [address] VLDL CHOLESTEROL 32 mg/dL Normal [facility] Comment on above: Order Comment: Reaso n for Exam Screening for lipid disorders Reason for Exam Screening for metabolic disorder Performed By: #### A 1C WTH eA, CMP, LIPID, CBC #### [facility] [address] Lymphocytes [#/volume] in Bl ood by Automated countOrdered By: Milagro Mejias on 07-03-2023 Lymphocytes (Bld) [#/Vol] 1.3 10*3/uL Normal 1.00-4.8 [facility] Comment on above: Order Comment: Reaso n for Exam Screening for deficiency anemia Performed By: #### A 1C WTH eA, CMP, LIPID, CBC #### [address] Lymphocytes/100 leukocytes i n Blood by Automated countOrdered By: Milagro Mejias on 07-03-2023 Lymphocytes/100 WBC (Bld) 16.8 % Normal . [facility] Comment on above: Order Comment: Reaso n for Exam Screening for deficiency anemia Performed By: #### A 1C WTH eA, CMP, LIPID, CBC #### [address] MCH [Entitic mass] by Automa debbie countOrdered By: Milagro Mejias on 07-03-2023 MCH (RBC) [Entitic mass] 28.6 pg Normal 27.5-35.2 [facility] Comment on above: Order Comment: Reaso n for Exam Screening for deficiency anemia Performed By: #### A 1C WTH eA, CMP, LIPID, CBC #### [address] MCHC Auto (RBC) [Mass/Vol]Or dered By: Milagro Mejias on 07-03-2023 MCHC (RBC) [Mass/Vol] 33.7 g/dL 32.5-35.6 [facility] MCV [Entitic volume] by Auto mated countOrdered By: Milagro Mejias on 07-03-2023 MCV (RBC) [Entitic vol] 84.8 fL Normal 83.5-101 [facility] Comment on above: Order Comment: Reaso n for Exam Screening for deficiency anemia Performed By: #### A 1C WTH eA, CMP, LIPID, CBC #### [facility] [address] Neutrophils [#/volume] in Bl ood by Automated countOrdered By: Milagro Mejias on 07-03-2023 Neutrophils (Bld) [#/Vol] 6.0 10*3/uL Normal 1.8-7.7 [facility] Comment on above: Order Comment: Reaso n for Exam Screening for deficiency anemia Performed By: #### A 1C WT eA, CMP, LIPID, CBC #### [facility] [address] No Panel InformationOrdered By: Milagro Mejias on 07-03-2023 Estimated GFR (CKD-EPI) > 60.0 mL/Min [facility] Creatinine Clearance (Chem N/A [facility] Nucleated erythrocytes [Pres ence] in Blood by Automated countOrdered By: Milagro Mejias on 07-03-2023 Nucleated RBC Auto Ql (Bld) 0.1 /100{WBC} 0-0.5 [facility] Platelet mean volume [Entiti c volume] in Blood by Automated countOrdered By: Milagro Mejias on 07-03-2023 Platelet mean volume (Bld) [Entitic vol] 10.1 fL Normal 6.6-10.1 [facility] Comment on above: Order Comment: Reaso n for Exam Screening for deficiency anemia Performed By: #### A 1C WT eA, CMP, LIPID, CBC #### [facility] [address] [place] [address] [place] Platelets [#/volume] in Bloo d by Automated countOrdered By: Milagro Mejias on 07-03-2023 Platelets (Bld) [#/Vol] 168 10*3/uL Normal 150-450 [facility] Comment on above: Order Comment: Reaso n for Exam Screening for deficiency anemia Performed By: #### A 1C WTH eA, CMP, LIPID, CBC #### [facility] [address] [place] [address] Potassium [Moles/volume] in Serum or PlasmaOrdered By: Milagro Mejias on 07-03-2023 Potassium [Moles/Vol] 4.0 mmol/L Normal 3.5-5.1 [facility] Comment on above: Order Comment: Reaso n for Exam Screening for lipid disorders Reason for Exam Screening for metabolic disorder Performed By: #### A 1C WTH eA, CMP, LIPID, CBC #### [facility] [address] Protein [Mass/volume] in Ser um or PlasmaOrdered By: Milagro Mejias on 07-03-2023 Protein [Mass/Vol] 7.1 g/dL Normal 6.4-8.9 [facility] Comment on above: Order Comment: Reaso n for Exam Screening for lipid disorders Reason for Exam Screening for metabolic disorder Performed By: #### A 1C WTH eA, CMP, LIPID, CBC #### [facility] [address] [place] [address] Serum globulin measurement b y calculation (mass/volume)Ordered By: Milagro Mejias on 07-03-2023 Globulin (S) [Mass/Vol] 2.6 g/dL Normal [facility] Comment on above: Order Comment: Reaso n for Exam Screening for lipid disorders Reason for Exam Screening for metabolic disorder Performed By: #### A 1C WT eA, CMP, LIPID, CBC #### [facility] [address] [place] [id number] [facility] Serum or plasma albumin/glob ulin mass ratioOrdered By: Milagro Mejias on 07-03-2023 Albumin/Globulin [Mass ratio] 1.7 {ratio} Normal [facility] Comment on above: Order Comment: Reaso n for Exam Screening for lipid disorders Reason for Exam Screening for metabolic disorder Performed By: #### A 1C WTH eA, CMP, LIPID, CBC #### [facility] [address] [place] [id number] [place] Serum or plasma anion gap de terminationOrdered By: Milagro Mejias on 07-03-2023 Anion gap [Moles/Vol] 10.5 mmol/L Normal 6.0-15.0 [facility] Comment on above: Order Comment: Reaso n for Exam Screening for lipid disorders Reason for Exam Screening for metabolic disorder Performed By: #### A 1C WT eA, CMP, LIPID, CBC #### [facility] [address] Serum or plasma high density lipoprotein (HDL) cholesterol measurementOrdered By: Milagro Mejias on 07-03-2023 Cholesterol in HDL [Mass/Vol] 37 mg/dL Normal 23-92 [facility] Comment on above: HDL CHOL ATP-III CLA SSIFICATION Cardiovascular RiskHDL > or equal to 60 mg/dL LOWHDL < 40 mg/dL HIGH Order Comment: Reaso n for Exam Screening for lipid disorders Reason for Exam Screening for metabolic disorder Result Comment: HDL CHOL ATP-III CLASSIFICATION Cardiovascular Risk HDL > or equal to 60 mg/dL LOW HDL < 40 mg/dL HIGH Performed By: #### A 1C WTH eA, CMP, LIPID, CBC #### [address] Serum or plasma total choles terol/high density lipoprotein (HDL) cholesterol mass ratOrdered By: Milagro Mejias on 07-03-2023 Cholesterol.total/Melanie sterol in HDL [Mass ratio] 3.7 {ratio} Normal <5.0 [facility] Comment on above: Order Comment: Reaso n for Exam Screening for lipid disorders Reason for Exam Screening for metabolic disorder Result Comment: PERF ORMED BY: [place] [address] PATHOLOGIST CHARTER REPRESENTATIVE JOVITA WATSON M.D. Performed By: #### A 1C WTH eA, CMP, LIPID, CBC #### [facility] [address] Sodium [Moles/volume] in Ser um or PlasmaOrdered By: Milagro Mejias on 07-03-2023 Sodium [Moles/Vol] 138 mmol/L Normal 136-145 [facility] Comment on above: Order Comment: Reaso n for Exam Screening for lipid disorders Reason for Exam Screening for metabolic disorder Performed By: #### A 1C WTH eA, CMP, LIPID, CBC #### [facility] [address] Thyrotropin [Units/volume] i n Serum or PlasmaOrdered By: Milagro Mejias on 07-03-2023 TSH Qn 3.77 m[IU]/L Normal 0.45-5.33 [facility] Comment on above: Order Comment: Reaso n for Exam Excessive sweating Result Comment: PERF ORMED BY: [place] [address] PATHOLOGIST CHARTER REPRESENTATIVE JOVITA WATSON M.D. Performed By: #### T SH3, T4F #### [address] Thyroxine (T4) free [Mass/vo lume] in Serum or PlasmaOrdered By: Milagro Mejias on 07-03-2023 Free T4 [Mass/Vol] 0.52 ng/dL Low 0.61-1.12 [facility] Comment on above: Order Comment: Reaso n for Exam Excessive sweating Performed By: #### T SH3, T4F #### [place] [id number] [facility] Triglyceride [Mass/volume] i n Serum or PlasmaOrdered By: Milagro Mejias on 07-03-2023 Triglyceride [Mass/Vol] 164 mg/dL 0-149 [facility] Comment on above: TRIG ATP III CLASSIF ICATIONTRIG less than 150 mg/dL NormalTRIG 150-199 mg/dL Borderline highTRIG 200-500 mg/dL High TRIG greater than 500 mg/dL Very highStandard traceable to the Center for Disease Conrtrol and Prevention (CDC) test method. Triiodothyronine (T3) Freeon 07-03-2023 Triiodothyronine (T3) Free 3.35 pg/mL Normal 2.50-3.90 [facility] Comment on above: Result Comment: PERF ORMED BY: [place] [address] PATHOLOGIST CHARTER REPRESENTATIVE JOVITA WATSON M.D. Performed By: #### T 3F #### [facility] [address] [place], [place] [id number] [facility] Triiodothyronine (T3) Free [ Mass/volume] in Serum or PlasmaOrdered By: Kourtney Woods on 07-03-2023 Free T3 [Mass/Vol] 3.35 pg/mL 2.50-3.90 [facility] Urea nitrogen [Mass/volume] in Serum or PlasmaOrdered By: Milagro Mejias on 07-03-2023 Urea nitrogen [Mass/Vol] 15 mg/dL Normal 7-25 [facility] Comment on above: Order Comment: Reaso n for Exam Screening for lipid disorders Reason for Exam Screening for metabolic disorder Performed By: #### A 1C WTH eA, CMP, LIPID, CBC #### [facility] [address] echo transthoracicon [facility] echo transthoracic [facility] [place] [address] [place] [address] Echocardiogram Signed Patient: Jacobo Haque SR MR#: [id number] : 1960 Acct:[id number] Age/Sex: 62 / M ADM Date: 01/05/23 Loc: Room: Type: [facility] Attending Dr: JUNIOR Simmons APRN Ordering Provider: Milagro Mejias APRN, CNP Date of Service: 01/05/23/ [facility] echo transthoracic: SHORTNESS OF BREATH, MURMUR Copies to: Milagro Mejias APRN, CNP William Patrick McGuinn, MD Weight: 187 lb Performed By: KATHLEEN Houser BSA: 2.0 m2 BP: 140/68 mmHg HR: 84 Reason For Study: SHORTNESS OF BREATH, MURMUR History: DM, Former Smoker, COVID Interpretation Summary Mild concentric left ventricular hypertrophy. Ejection Fraction = 60-65%. A variety of Doppler measurements indicate normal left ventricular diastolic function. There is trace tricuspid regurgitation. Procedure/Quality: A two-dimensional transthoracic echocardiogram with color flow and Doppler was performed. The study was technically good in quality. Left Ventricle: The left ventricular size is normal. Mild concentric left ventricular hypertrophy. Ejection Fraction = 60-65%. A variety of Doppler measurements indicate normal left ventricular diastolic function. No left ventricular thrombus or mass is seen. Left Atrium: The left atrium appears normal in size. The atrial septum appears normal. Right Atrium: The right atrium appears normal in size. Right Ventricle: The right ventricular size, thickness and function are normal. Aortic Valve: The aortic valve is normal in structure and function. Mitral Valve: The mitral valve leaflets appear normal. There is no evidence of stenosis, fluttering, or prolapse. Tricuspid Valve: The tricuspid valve is normal. There is trace tricuspid regurgitation. Pulmonic Valve: The pulmonic valve is not well visualized. Arteries: The aortic root is normal size. The aortic arch was visualized and no abnormalities were seen. Pericardium/Pleura: No pericardial effusion seen. There is no pleural effusion. IVC/Hepatic Viens: The inferior vena cava is normal in size, with a normal collapsibility index. Measurements with Normals IVSd: 1.1 cm (0.7-1.1 cm)LVIDd: 4.7 cm (3.7-5.4 cm) LVPWd: 1.2 cm (0.7-1.1 cm)LVIDs: 2.5 cm (2.3-3.6 cm) LA dimension: 3.1 cm (2.3-4.0 cm)Ao root diam: 3.6 cm(2.0-3.6 cm) asc Aorta Diam: 3.4 cm(2.1-3.4cm) Doppler with Normals RVSP(TR): 30.2 mmHg (18-35mmHg) MV E max wayne: 131.0 cm/sec(0.8-1.3m/s) MV A max wayne: 77.1 cm/sec (0.0-0.0m/s) MV E/A: 1.7 (<1.5) MMode/2D Measurements Calculations RVDd: 3.3 cm FS: 47.5 % Ao root area: 9.9 cm2 LVLd ap4: 7.2 cm TAPSE: 2.1 cm EDV(Teich): EDV(MOD-sp4): RV S Wayne: 101.1 ml 58.2 ml 25.1 cm/sec ESV(Teich): LVLs ap4: 5.3 cm 21.3 ml ESV(MOD-sp4): EF(Teich): 78.9 % 12.6 ml EF(MOD-sp4): 78.4 % __ SV(MOD-sp4): LAV(MOD-sp4): LA A2 area: 14.0 cm2 RA Volume: 18.6 ml 45.6 ml 24.6 ml LAV(MOD-sp2): LA A4 area: 11.8 cm2 31.8 ml LA length (vol): 4.4 cm LA vol: 31.7 ml LA vol index: 16.1 ml/m2 Doppler Measurements Calculations E/E' lat: Ao V2 max: TV max PG: TR max wayne: 9.2 255.2 cm/sec 25.0 mmHg 251.1 cm/sec E/E' med: Ao max P.0 mmHg TR max P.2 mmHg 11.6 Ao mean P.9 mmHg RAP systole: 5.0 mmHg Ao V2 mean: 169.3 cm/sec Ao V2 VTI: 44.2 cm Transcribed By: SCV Performed At: 01/05/23 0754 Signed By: Murtaza Matos MD 01/05/23 1600 Normal [facility] Creatinine (Bld) [Mass/Vol]O rdered By: Milagro Mejias on 01-04-2023 Creatinine [Mass/Vol] 0.7 mg/dL 0.6-1.3 [facility] Comment on above: ER/ESD physician is notified/shown all ISTAT results.Critical values may be confirmed by laboratory testing ifdeemed necessary by ER attending doctor. MR head/brain wo/w april MR head/brain wo/w con [facility] [place] [address] MRI Report Signed Patient: GarlandJacobo SR MR#: [id number] : 1960 Acct:[id number] Age/Sex: 62 / M ADM Date: 01/04/23 Loc: MR Room: Type: [facility] Attending Dr: JUNIOR Simmons APRN Copies to: Milagro Mejias APRN, CNP Ordering Provider: Milagro Mejias APRN, CNP Date of Service: 01/04/23 MR/MR head/brain wo/w con: New onset of headaches after age 52 MR head/brain wo/w con 01/04/2023 4:17 PM SIGN AND SYMPTOMS: New onset headaches PROTOCOL: Multiplanar multisequence MR images of the brain were obtained with and without IV contrast CONTRAST: 18 mL of intravenous ProHance COMPARISON: None. FINDINGS: Extra axial spaces: There is diffuse age-related cortical atrophy. Hemorrhage: None. Ventricular system: Within normal limits. Basal cisterns: Within normal limits and not effaced. Cerebral parenchyma: Periventricular and subcortical white matter T2 and FLAIR hyperintense signal is noted suspicious for chronic microvascular ischemic change. Midline shift: None.. Cerebellum: Within normal limits. Brainstem: Within normal limits. OTHER: Calvarium: Normal marrow signal. Vascular system: Satisfactory flow voids within the anterior and posterior circulation. Visualized Paranasal sinuses: Within normal limits. Visualized Orbits: Within normal limits. Visualized upper cervical spine: Within normal limits. Sella and skull base: Within normal limits. MR/MR head/brain wo/w con IMPRESSION: No acute intracranial pathology or abnormal postcontrast enhancement. There is mild diffuse age-related cortical atrophy. Chronic microvascular ischemic changes are noted. Impression dictated by: Evan Lundberg M.D.01/04/2023 5:27 PM Dictation Location: [place] [address] Transcribed By: [facility] 01/04/231726 Dictated By: Evan Lundberg II, MD 01/04/231720 Signed By: 01/04/231726 Normal [facility] XR elbow LT min 3V*on 2022 XR elbow LT min 3V* [facility] [employer] Other XR elbow LT min 3V* [facility] [place] [employer] Other XR elbow LT min 3V* [address] [facility] [employer] Other XR elbow LT min 3V* [employer] [address] [employer] Other XR elbow LT min 3V* XRay Report [facility] [employer] Other XR elbow LT min 3V* Signed [employer] Other XR elbow LT min 3V* Patient: Jacobo Haque MR#: [id number] [employer] Other XR elbow LT min 3V* [id number] [employer] Other XR elbow LT min 3V* : 1960 Acct:[id number] [employer] Other XR elbow LT min 3V* Age/Sex: 61 / M ADM Date: 05/12/22 [employer] Other XR elbow LT min 3V* Loc: SOXD Room: Type : [facility] [employer] Other XR elbow LT min 3V* Attending Dr: Milagro PACHECO [employer] Other XR elbow LT min 3V* Copies to: HENRIK BarbaYennifer [employer] Other XR elbow LT min 3V* Ordering Provider: MARISOL Barba [employer] Other XR elbow LT min 3V* Date of Service: 05/12/22 [employer] Other XR elbow LT min 3V* XR/XR elbow LT min 3V*: Left lateral epicondylitis [employer] Other XR elbow LT min 3V* LEFT ELBOW - 4 views [employer] Other XR elbow LT min 3V* CLINICAL HISTORY: Follow-up left lateral epicondylar release [employer] Other XR elbow LT min 3V* COMPARISON: Left elbow 01/06/2022 [employer] Other XR elbow LT min 3V* FINDINGS: [employer] Other XR elbow LT min 3V* No elbow joint effusion. No acute bony process. Joint spaces appear maintained. [employer] Other XR elbow LT min 3V* XR/XR elbow LT min 3V* [employer] Other XR elbow LT min 3V* IMPRESSION: [employer] Other XR elbow LT min 3V* NO ACUTE BONY PROCESS. [employer] Other XR elbow LT min 3V* Impression dictated by: Jose Rob Jr., DBarrettOBarrett05/12/2022 2:54 PM [employer] Other XR elbow LT min 3V* Dictation Location: [facility]-12 [employer] Other XR elbow LT min 3V* Transcribed By: CRISSY 05/12/22 [facility] [employer] Other XR elbow LT min 3V* Dictated By: Jose Rob Jr DO 05/12/22 1453 [employer] Other XR elbow LT min 3V* Signed By: [employer] Other XR elbow LT min 3V* 05/12/22 1454 No [employer] Other Glucose Glucometer (dC) [M ass/Vol]Ordered By: Giovany Krishna on 04-20-2022 Glucose [Mass/Vol] 91 mg/dL [facility] Comment on above: Random Glucose Refer ence Range is dependent on time and content of last meal. Glucose of more than 200 mg/dL in a nonstressed, ambulatory subject supports the diagnosis of Diabetes Mellitus. No Panel InformationOrdered By: Giovany Krishna on 04-20-2022 Bedside Glucose Comment Glu2: cleaned meter [facility] Albumin [Mass/volume] in Ser um or PlasmaOrdered By: Giovany Krishna on 04-07-2022 Albumin [Mass/Vol] 3.9 g/dL 3.2-5.5 [facility] Basophils Auto (Bld) [#/Vol] Ordered By: Giovany Krishna on 04-07-2022 Basophils (Bld) [#/Vol] 0.0 10*3/uL 0.0-0.2 [facility] Basophils/100 WBC Auto (Bld) Ordered By: Giovany Krishna on 04-07-2022 Basophils/100 WBC (Bld) 0.7 % . F [facility] Creatinine and Glomerular fi ltration rate.predicted panel (S/P/Bld)Ordered By: Giovany Krishna on 04-07-2022 Creatinine [Mass/Vol] 1.12 mg/dL 0.64-1.27 [facility] Eosinophils Auto (Bld) [#/Vo l]Ordered By: Giovany Krishna on 04-07-2022 Eosinophils (Bld) [#/Vol] 0.2 10*3/uL 0.0-0.45 [facility] Eosinophils/100 WBC Auto (Bl d)Ordered By: Giovany Krishna on 04-07-2022 Eosinophils/100 WBC (Bld) 3.2 % . [facility] Erythrocyte distribution wid th Auto (RBC) [Ratio]Ordered By: Giovany Krishna on 04-07-2022 Erythrocyte distribution width (RBC) [Ratio] 13.7 % 12.0-14.8 [facility] Estimated glomerular filtrat ion rate (GFR) non- AmericanOrdered By: Giovany Krishna on 04-07-2022 GFR/1.73 sq M.predicted among non-blacks MDRD (S/P/Bld) [Vol rate/Area] > 60 mL/Min [facility] Globulin Calc (S) [Mass/Vol] Ordered By: Giovany Krishna on 04-07-2022 Globulin (S) [Mass/Vol] 2.4 g/dL F [facility] Hematocrit Auto (Bld) [Volum e fraction]Ordered By: Giovany Krishna on 04-07-2022 Hematocrit (Bld) [Volume fraction] 45.3 % 38.8-50.0 [facility] Hemoglobin [Mass/volume] in BloodOrdered By: Giovany Krishna on 04-07-2022 Hemoglobin (Bld) [Mass/Vol] 15.0 g/dL 13.0-17.0 [facility] Leukocytes [#/volume] correc debbie for nucleated erythrocytes in Blood by Automated counOrdered By: Giovany Krishna on 04-07-2022 WBC corrected for nucl RBC Auto (Bld) [#/Vol] 6.3 10*3/uL 4.1-10.5 [facility] Lymphocytes Auto (Bld) [#/Vo l]Ordered By: Giovany Krishna on 04-07-2022 Lymphocytes (Bld) [#/Vol] 1.6 10*3/uL 1.00-4.8 [facility] Lymphocytes/100 WBC Auto (Bl d)Ordered By: Giovany Krishna on 04-07-2022 Lymphocytes/100 WBC (Bld) 25.7 % . [facility] MCH Auto (RBC) [Entitic mass ]Ordered By: Giovany Krishna on 04-07-2022 MCH (RBC) [Entitic mass] 28.8 pg 27.5-35.2 [facility] MCHC Auto (RBC) [Mass/Vol]Or dered By: Giovany Krishna on 04-07-2022 MCHC (RBC) [Mass/Vol] 33.2 g/dL 32.5-35.6 [facility] MCV Auto (RBC) [Entitic vol] Ordered By: Giovany Krishna on 04-07-2022 MCV (RBC) [Entitic vol] 86.6 fL 83.5-101 F [facility] Monocytes Auto (Bld) [#/Vol] Ordered By: Giovany Krishna on 04-07-2022 Monocytes (Bld) [#/Vol] 0.6 10*3/uL 0.0-0.8 [facility] Monocytes/100 WBC Auto (Bld) Ordered By: Giovany Krishna on 04-07-2022 Monocytes/100 WBC (Bld) 9.1 % . F [facility] Neutrophils Auto (Bld) [#/Vo l]Ordered By: Giovany Krishna on 04-07-2022 Neutrophils (Bld) [#/Vol] 3.9 10*3/uL 1.8-7.7 [facility] Neutrophils/100 WBC Auto (Bl d)Ordered By: Giovany Krishna on 04-07-2022 Neutrophils/100 WBC (Bld) 61.3 % . [facility] No Panel InformationOrdered By: Giovany Krishna on 04-07-2022 Estimated GFR () > 60 mL/Min [facility] Comment on above: GFR estimated refere nce range: According to KDOQI guidelines, <60 ml/min/1.73m2 is sufficient to diagnose a patient with chronic kidney disease. Pharmacy Creatinine Clearance (Chem N/A [facility] Nucleated erythrocytes [Pres ence] in Blood by Automated countOrdered By: Giovany Krishna on 04-07-2022 Nucleated RBC Auto Ql (Bld) 0.0 /100{WBC} 0-0.5 [facility] Platelet mean volume Auto (B ld) [Entitic vol]Ordered By: Giovany Krishna on 04-07-2022 Platelet mean volume (Bld) [Entitic vol] 9.9 fL 6.6-10.1 [facility] Platelets Auto (Bld) [#/Vol] Ordered By: Giovany Krishna on 04-07-2022 Platelets (Bld) [#/Vol] 172 10*3/uL 150-450 [facility] Protein [Mass/volume] in Ser um or PlasmaOrdered By: Giovany Krishna on 04-07-2022 Protein [Mass/Vol] 6.3 g/dL 6.1-7.9 [facility] RBC Auto (Bld) [#/Vol]Ordere d By: Giovany Krishna on 04-07-2022 RBC (Bld) [#/Vol] 5.23 10*6/uL 3.90-5.60 [facility] Serum or plasma alanine paul otransferase measurement without P-5'-P (enzymatic activiOrdered By: Giovany Krishna on 04-07-2022 ALT No additional P-5'-P [Catalytic activity/Vol] 16 U/L 10-60 [facility] Serum or plasma albumin/glob ulin mass ratioOrdered By: Giovany Krishna on 04-07-2022 Albumin/Globulin [Mass ratio] 1.6 {ratio} [facility] Serum or plasma alkaline mirtha sphatase measurement (enzymatic activity/volume)Ordered By: Giovany Krishna on 04-07-2022 ALP [Catalytic activity/Vol] 51 U/L 32-92 [facility] Serum or plasma anion gap de terminationOrdered By: Giovany Krishna on 04-07-2022 Anion gap [Moles/Vol] 13.8 mmol/L 6.0-15.0 [facility] Serum or plasma aspartate am inotransferase measurement (enzymatic activity/volume)Ordered By: Giovany Krishna on 04-07-2022 AST [Catalytic activity/Vol] 18 U/L 10-42 [facility] Serum or plasma calcium sneha urement (mass/volume)Ordered By: Giovany Krishna on 04-07-2022 Calcium [Mass/Vol] 8.9 mg/dL 8.2-10.2 [facility] Serum or plasma chloride kourtney surement (moles/volume)Ordered By: Giovany Krishna on 04-07-2022 Chloride [Moles/Vol] 102 mmol/L 95-114 [facility] Serum or plasma glucose sneha urement (mass/volume)Ordered By: Giovany Krishna on 04-07-2022 Glucose [Mass/Vol] 112 mg/dL 70-100 [facility] Comment on above: ADA recommended refe rence rangeRandom Glucose Reference Range is dependent on time and content of last meal. Glucose of more than 200 mg/dL in a nonstressed, ambulatory subject supports the diagnosis of Diabetes Mellitus. Serum or plasma potassium me asurement (moles/volume)Ordered By: Giovany Krishna on 04-07-2022 Potassium [Moles/Vol] 4.0 mmol/L 3.5-5.1 [facility] Serum or plasma sodium measu rement (moles/volume)Ordered By: Giovany Krishna on 04-07-2022 Sodium [Moles/Vol] 139 mmol/L 136-146 [facility] Serum or plasma total biliru bin measurement (mass/volume)Ordered By: Giovany Krishna on 04-07-2022 Bilirubin [Mass/Vol] 0.7 mg/dL 0.3-1.2 [facility] Serum or plasma total carbon dioxide measurement (moles/volume)Ordered By: Giovany Krishna on 04-07-2022 CO2 [Moles/Vol] 27.2 mmol/L 22.0-30.0 [facility] Serum or plasma urea nitroge n measurement (mass/volume)Ordered By: Giovany Krishna on 04-07-2022 Urea nitrogen [Mass/Vol] 16 mg/dL 12-10 [facility] WBC Auto (Bld) [#/Vol]Ordere d By: Giovany Krishna on 04-07-2022 WBC (Bld) [#/Vol] 6.3 10*3/uL 4.1-10.5 [facility] MICROALBUMIN URINEon 022 Albumin, Urine 10.6 ug/mL Normal Not Estab. [facility] Comment on above: Performed By: #### M ALBLC #### [facility] [address] [place] [address] Dr. Steven Camarillo CBC AUTO DIFFon 11-04-2021 BASO # 0.0 103/ul Normal 0.0-0.1 [facility] Comment on above: Performed By: #### C BC #### [facility] [address] [place] [address] Dr. Steven Camarillo Basophils/100 WBC (Bld) 0.5 % Normal 0.2-2.0 [facility] Comment on above: Performed By: #### C BC #### [facility] [address] [place] [address] Dr. Steven Camarillo EO # 0.2 103/ul Normal 0.0-0.7 [facility] Comment on above: Performed By: #### C BC #### [facility] [address] [place] [address] Dr. Steven Camarillo Eosinophils/100 WBC (Bld) 2.9 % Normal 0.9-7.0 [facility] Comment on above: Performed By: #### C BC #### [facility] [address] [place] [address] Dr. Steven Camarillo Erythrocyte distribution width (RBC) [Ratio] 12.7 % Normal 11.0-15.0 [facility] Comment on above: Performed By: #### C BC #### [facility] [address] [place] [address] Dr. Steven Camarillo Hematocrit (Bld) [Volume fraction] 47.3 % Normal 42.0-54.0 [facility] Comment on above: Performed By: #### C BC #### [facility] [address] [place] [address] Dr. Steven Camarillo Hemoglobin (Bld) [Mass/Vol] 15.9 g/dL Normal 14.0-18.0 [facility] Comment on above: Performed By: #### C BC #### [facility] [address] [place] [address] Dr. Steven Camarillo IG # 0.04 10e3/ul Critically high 0.00-0.03 [facility] Comment on above: Performed By: #### C BC #### [facility] [address] [place] [address] Dr. Steven Camarillo IG % 0.5 % Normal 0.0-0.5 [facility] Comment on above: Performed By: #### C BC #### [facility] [address] [place] [address] Dr. Steven Camarillo LYMPH # 1.7 103/ul Normal 1.2-3.8 [facility] Comment on above: Performed By: #### C BC #### [facility] [address] [place] [address] Dr. Steven Camarillo Lymphocytes/100 WBC (Bld) 21.5 % Normal 20.5-60.0 [facility] Comment on above: Performed By: #### C BC #### [facility] [address] [place] [address] Dr. Steven Camarillo MANUAL DIFF REQ NO Normal [facility] Comment on above: Performed By: #### C BC #### [facility] [address] [place] [address] Dr. Steven Camarillo MCH (RBC) [Entitic mass] 29.0 pg Normal 25.9-34.0 [facility] Comment on above: Performed By: #### C BC #### [facility] [address] [place] [address] Dr. Steven Camarillo MCHC (RBC) [Mass/Vol] 33.6 g/dL Normal 29.9-35.2 [facility] Comment on above: Performed By: #### C BC #### [facility] [address] [place] [address] Dr. Steven Camarillo MCV (RBC) [Entitic vol] 86.2 fL Normal 80.0-94.0 [facility] Comment on above: Performed By: #### C BC #### [facility] [address] [place] [address] Dr. Steven Camarillo MONO # 0.6 103/ul Normal 0.3-0.8 [facility] Comment on above: Performed By: #### C BC #### [facility] [address] [place] [address] Dr. Steven Camarillo Monocytes/100 WBC (Bld) 8.0 % Normal 1.7-12.0 [facility] Comment on above: Performed By: #### C BC #### [facility] [address] [place] [address] Dr. Steven Camarillo NEUT # 5.4 103/ul Normal 1.4-6.5 [facility] Comment on above: Performed By: #### C BC #### [facility] [address] [place] [address] Dr. Steven Camarillo Neutrophils/100 WBC (Bld) 66.6 % Normal 43.0-75.0 [facility] Comment on above: Performed By: #### C BC #### [facility] [address] [place] [address] Dr. Steven Camarillo Platelet mean volume (Bld) [Entitic vol] 10.9 fL Normal 9.5-13.5 [facility] Comment on above: Performed By: #### C BC #### [facility] [address] [place] [address] Dr. Steven Camarillo PLT 227 103/ul Normal 150-450 [facility] Comment on above: Performed By: #### C BC #### [facility] [address] [place] [address] Dr. Steven Camarillo RBC 5.49 106/ul Normal 4.70-6.10 [facility] Comment on above: Performed By: #### C BC #### [facility] [address] [place] [address] Dr. Steven Camarillo WBC 8.1 103/ul Normal 4.0-11.0 [facility] Comment on above: Performed By: #### C BC #### [facility] [address] [place] [address] Dr. Steven Camarillo GLYCOHEMOGLOBIN A1Con 2021 ADA RECOMMENDATION SEE BELOW Normal [facility] Comment on above: Result Comment: ADA RECOMMENDED LIMIT 4.0 - 6.0 ADA THERAPEUTIC TARGET < 7.0 ACTION SUGGESTED > 7.0 Performed By: #### A 1C #### [facility] [address] [place] [address] Dr. Steven Camarillo Glucose [Mass/Vol] 108 mg/dL Normal [facility] Comment on above: Performed By: #### A 1C #### [facility] [address] [place] [address] Dr. Steven Camarillo HbA1c (Bld) [Mass fraction] 5.4 % Normal 4.5-6.2 [facility] Comment on above: Performed By: #### A 1C #### [facility] [address] [place] [address] Dr. Steven Camarillo PROF 14(COMP METB)on 022 Albumin [Mass/Vol] 4.0 g/dL Normal 3.4-5.0 [facility] Comment on above: Performed By: #### C MP #### [facility] [address] [place] [address] Dr. Steven Camarillo Albumin/Globulin [Mass ratio] 1.1 {ratio} Normal [facility] Comment on above: Performed By: #### C MP #### [facility] [address] [address] [address] Steven Camarillo ALP [Catalytic activity/Vol] 76 U/L Normal 46-116 [facility] Comment on above: Performed By: #### C MP #### [facility] [address] [place] [address] Dr. Steven Camarillo ALT [Catalytic activity/Vol] 18 U/L Normal 16-63 [facility] Comment on above: Performed By: #### C MP #### [facility] [address] [address] [address] Steven Camarillo Anion gap [Moles/Vol] 10.7 mmol/L Normal Th e [facility] Comment on above: Performed By: #### C MP #### [facility] [address] [place] [address] Dr. Steven Camarillo AST [Catalytic activity/Vol] 13 U/L Critically low 15-37 [facility] Comment on above: Performed By: #### C MP #### [facility] [address] [place] [address] Dr. Steven Camarillo Bilirubin [Mass/Vol] 0.4 mg/dL Normal 0.2-1.0 [facility] Comment on above: Performed By: #### C MP #### [facility] [address] [place] [address] Dr. Steven Camarillo Calcium [Mass/Vol] 9.2 mg/dL Normal 8.5-10.1 [facility] Comment on above: Performed By: #### C MP #### [facility] [address] [place] [address] Dr. Steven Camarillo Chloride [Moles/Vol] 102 mmol/L Normal 98-107 [facility] Comment on above: Performed By: #### C MP #### [facility] [address] [place] [address] Dr. Steven Camarillo CO2 [Moles/Vol] 29.6 mmol/L Normal 21.0-32.0 [facility] Comment on above: Performed By: #### C MP #### [facility] [address] [place] [address] Dr. Steven Camarillo Creatinine [Mass/Vol] 1.14 mg/dL Normal 0.70-1.30 [facility] Comment on above: Performed By: #### C MP #### [facility] [address] [address] [address] Steven Camarillo EGFR-AF VENEZUELAN >60 Normal >=60 [facility] Comment on above: Performed By: #### C MP #### [facility] [address] [address] [address] Steven Camarillo EGFR-NON AF VENEZUELAN >60 Normal >=60 [facility] Comment on above: Performed By: #### C MP #### [facility] [address] [address] [address] Steven Camarillo Globulin (S) [Mass/Vol] 3.7 g/dL Normal [facility] Comment on above: Performed By: #### C MP #### [facility] [address] [address] [address] Steven Camarillo Glucose [Mass/Vol] 114 mg/dL Critically high 74-106 [facility] Comment on above: Performed By: #### C MP #### [facility] [address] [address] [address] Steven Camarillo Potassium [Moles/Vol] 4.3 mmol/L Normal 3.5-5.1 [facility] Comment on above: Performed By: #### C MP #### [facility] [address] [address] [address] Steven Camarillo Protein [Mass/Vol] 7.7 g/dL Normal 6.4-8.2 [facility] Comment on above: Performed By: #### C MP #### [facility] [address] [address] [address] Steven Camarillo Sodium [Moles/Vol] 138 mmol/L Normal 136-145 [facility] Comment on above: Performed By: #### C MP #### [facility] [address] [address] [address] Steven Camarillo Urea nitrogen [Mass/Vol] 17.0 mg/dL Normal 7.0-18.0 [facility] Comment on above: Performed By: #### C MP #### [facility] [address] [address] [address] Steven Camarillo Urea nitrogen/Creatinine [Mass ratio] 14.9 mg/mg Normal [facility] Comment on above: Performed By: #### C MP #### [facility] [address] [address] [address] Steven Camarillo Vital Signs Date Time Vital Sign Value Performing Clinician Facility 05-29-2023 11:29-0400 Body height 172.72 cm POULTRY HUSBANDRY TEACHERCherie Mejias Work Phone: [facility] 05-29-2023 11:29-0400 Body mass index (BMI) [Ratio] 31.3 kg/m2 [employer]OUL[employer] HUSBANDRY TEACHERCherie Mejias Work Phone: [facility] 05-29-2023 11:29-0400 Body weight 93.44 kg MIGUEL Mejias Work Phone: [facility] 05-29-2023 11:29-0400 Diastolic blood pressure 77 mm[Hg] POULTRY HUSBANDRY TEACHERCherie Mejias Work Phone: [facility] 05-29-2023 11:29-0400 Heart rate 80 /min MIGUEL Mejias Work Phone: [facility] 05-29-2023 11:29-0400 SaO2% (BldA) [Mass fraction] 97 % POULTRY HUSBANDRY TEACHERCherie Mejias Work Phone: [facility] 05-29-2023 11:29-0400 Systolic blood pressure 122 mm[Hg] MIGUEL Mejias Work Phone: [facility] 04-06-2023 10:00-0500 Body height 172.72 cm Milagro Mejias Other [facility] 04-06-2023 10:00-0500 Body mass index (BMI) [Ratio] 30.56 kg/m2 Milagro Mejias Other [employer] [facility] [employer] Other 04-06-2023 10:00-0500 Body weight 91.17 kg Milagro Willr Other [facility] 04-06-2023 10:00-0500 Diastolic blood pressure 74 mm[Hg] Milagro Jakubacher Other [facility] 04-06-2023 10:00-0500 SaO2% (BldA) [Mass fraction] 95 % Milagro Jakubacher Other [employer] Other 04-06-2023 10:00-0500 Systolic blood pressure 124 mm[Hg] Milagro Jakubacher Other [facility] 12-23-2022 09:00-0400 Body height 172.72 cm Milagro Magalie Other [employer] Other 12-23-2022 09:00-0400 Body mass index (BMI) [Ratio] 29.98 kg/m2 Milagro Magalie Other [employer] Other 12-23-2022 09:00-0400 Body weight 89.45 kg Milagro Willr Other [employer] Other 12-23-2022 09:00-0400 Diastolic blood pressure 60 mm[Hg] Milagro Rose Marierbacher Other [employer] Other 12-23-2022 09:00-0400 SaO2% (BldA) [Mass fraction] 96 % Milagro Jakubacher Other [employer] Other 12-23-2022 09:00-0400 Systolic blood pressure 120 mm[Hg] Milagro Magaile Other [employer] Other 10-15-2022 10:25-0400 Body height 172.72 cm Tracy Wong Other [employer] Other 10-15-2022 10:25-0400 Body mass index (BMI) [Ratio] 31.9 kg/m2 Tracy Wong Other [employer] Other 10-15-2022 10:25-0400 Body temperature 99.1 [degF] Tracy Wong Other [employer] Other 10-15-2022 10:25-0400 Body weight 95.17 kg Tracy Wong Other [employer] Other 10-15-2022 10:25-0400 Diastolic blood pressure 73 mm[Hg] Tracy Wong Other [employer] Other 10-15-2022 10:25-0400 Respiratory rate 18 /min Tracy Wong Other [employer] Other 10-15-2022 10:25-0400 SaO2% (BldA) [Mass fraction] 95 % Tracy Wong Other [employer] Other 10-15-2022 10:25-0400 Systolic blood pressure 143 mm[Hg] Tracy Wong Other [employer] Other 04-20-2022 15:20-0500 Diastolic blood pressure 65 mm[Hg] DO [employer] Work Phone: [facility] 04-20-2022 15:20-0500 Heart rate 50 /min DO [employer] Phone: [facility] 04-20-2022 15:20-0500 Respiratory rate 16 /min DO [employer] Work Phone: [facility] 04-20-2022 15:20-0500 SaO2% (BldA) [Mass fraction] 98 % DO Len [employer] Work Phone: [facility] 04-20-2022 15:20-0500 Systolic blood pressure 112 mm[Hg] DO Len [employer] Work Phone: [facility] 04-20-2022 13:55-0500 Inhaled oxygen flow rate 5 L/min DO [employer] Work Phone: [facility] 04-20-2022 12:34-0500 Body height 172.72 cm DO [employer] Work Phone: [facility] 04-20-2022 12:34-0500 Body mass index (BMI) [Ratio] 31 kg/m2 DO [employer] Work Phone: [facility] 04-20-2022 12:34-0500 Body weight 92.7 kg DO [employer] Work Phone: [facility] 04-20-2022 11:59-0500 Body temperature 98.6 [degF] DO [employer] Work Phone: [facility] 03-29-2022 09:30-0500 Body height 172.72 cm Giovany Krishna Other [employer] Other 03-29-2022 09:30-0500 Body mass index (BMI) [Ratio] 30.41 kg/m2 Giovany Olexa Other [employer] Other 03-29-2022 09:30-0500 Body weight 90.72 kg Giovany Olexa Other [employer] Other 01-06-2022 09:00-0400 Body height 172.72 cm Giovany Krishna Other [employer] Other 01-06-2022 09:00-0400 Body mass index (BMI) [Ratio] 31.93 kg/m2 Giovany Krishna Other [employer] Other 01-06-2022 09:00-0400 Body weight 95.26 kg Giovany Krishna Other [employer] Other Encounters Encounter Date Encounter Type Care Provider Facility Start: 10-30-2023 End: 10-30-2023 Patient encounter procedure POULTRY HUSBANDRY TEACHERCherie Mejias Work Phone: [facility] Start: 10-30-2023 End: 10-30-2023 ambulatory POULTRY HUSBANDRY TEACHERCherie Mejias Work Phone: [facility] Work Phone: Start: 07-03-2023 End: 07-03-2023 Patient encounter procedure P[employer] HUSBAN[employer] TEACHER Milagro Mejias Work Phone: [facility] Start: 07-03-2023 End: 07-03-2023 ambulatory POULTRY HUSBANDRY TEACHERCherie Mejias Work Phone: [facility] Work Phone: Start: 05-29-2023 End: 05-29-2023 Patient encounter procedure POUL[employer] HUSBANDRY TEACHER Milagro Mejias Work Phone: [facility] Work Phone: Start: 04-06-2023 End: 04-06-2023 ambulatory Milagro Mejias Other [employer] [facility] [employer] Other Start: 04-06-2023 Office outpatient vi sit 15 minutes Milagro Mejias [facility] Start: 04-06-2023 End: 04-06-2023 Patient encounter procedure POULTRY HUSBANDRY TEACHER Milagro Magalie Work Phone: [facility]- Start: 02-14-2023 End: 02-14-2023 ambulatory Milagro Magalie Other [employer] Other Start: 02-14-2023 Telephone encounter Milagro Trotterashleeadán her [facility] Start: 01-06-2023 End: 01-06-2023 ambulatory Milagro Magalie Other [employer] Other Start: 01-06-2023 Telephone encounter Milagro Shepard her [facility] Start: 01-05-2023 Telephone encounter Milagro Shepard her [facility] Start: 01-05-2023 End: 01-05-2023 Patient encounter procedure POULTRY HUSBANDRY TEACHER Milagro Magalie Work Phone: [facility] Work Phone: Start: 01-05-2023 End: 01-05-2023 ambulatory [employer] HUSBAN[employer] TEACHER Milagro Magalie Work Phone: [facility] Work Phone: Start: 01-04-2023 End: 01-04-2023 Patient encounter procedure POULTRY HUSBANDRY TEACHER Milagro Magalie Work Phone: [facility] [place] Work Phone: Start: 01-04-2023 End: 01-04-2023 ambulatory Milagro Mejias Facility:[facility] Start: 2022 End: 2022 ambulatory Milagro Mejias Other [employer] Other Start: 2022 Telephone encounter Milagro Shepard her [facility] Start: 12-23-2022 End: 12-23-2022 ambulatory Milagro Willr Other [employer] Other Start: 12-23-2022 Office outpatient ne w 30 minutes Milagro Mejias [facility] Start: 10-25-2022 End: 10-25-2022 ambulatory Giovany Olexa Other [employer] Other Start: 10-25-2022 Office outpatient vi sit 15 minutes Giovany Krishna [facility] Start: 10-15-2022 End: 10-15-2022 ambulatory Tracy Wnog Other [employer] Other Start: 10-15-2022 Office outpatient vi sit 15 minutes Tracy Wong [facility] Start: 07-26-2022 End: 07-26-2022 ambulatory Milagro Ann Other [employer] Other Start: 07-26-2022 Office outpatient vi sit 15 minutes Milagro Ann [facility] Start: 05-12-2022 Postop follow up vis it related to original px Milagro Ann [facility] Start: 05-12-2022 Telephone encounter Giovany Krishna [facility] [facility] Start: 05-12-2022 End: 05-12-2022 ambulatory DO Len House Work Phone: [facility] Work Phone: Start: 05-12-2022 End: 05-12-2022 Patient encounter procedure DO Len House Work Phone: [facility] Start: 04-28-2022 End: 04-28-2022 ambulatory Giovany Everettxa Other [employer] Other Start: 04-28-2022 Postop follow up vis it related to original px Giovany Everettxa [facility] Start: 04-20-2022 End: 04-20-2022 Admission to same day surgery center DO Len House Work Phone: [facility] [place] Start: 04-20-2022 End: 04-20-2022 ambulatory DO Len House Work Phone: [facility] Work Phone: Start: 04-18-2022 End: 04-18-2022 ambulatory Giovany Olexa Other [employer] Other Start: 04-18-2022 Telephone encounter Giovany Olexa [facility] Start: 04-07-2022 End: 04-07-2022 ambulatory DO Len House Work Phone: [facility] Work Phone: Start: 04-07-2022 End: 04-07-2022 Patient encounter procedure DO Len House Work Phone: [facility] Work Phone: Start: 03-29-2022 End: 03-29-2022 ambulatory Giovany Olexa Other [employer] Other Start: 03-29-2022 Encounter for other preprocedural examination Giovany Olexa [facility] Start: 03-29-2022 Office outpatient vi sit 25 minutes Giovany Olexa [facility] Start: 03-05-2022 End: 03-05-2022 Patient encounter procedure DO Len House Work Phone: [facility] [place] Work Phone: Start: 01-13-2022 End: 01-13-2022 ambulatory Giovany Olexa Other [employer] Other Start: 01-13-2022 Telephone encounter Giovany Olexa [facility] Start: 01-06-2022 Office outpatient ne w 30 minutes Giovany Olexa [facility] Start: 01-06-2022 End: 01-06-2022 ambulatory Giovany Olexa Other [employer] Other Start: 01-06-2022 End: 01-06-2022 Patient encounter procedure MD Giovany Krishna Work Phone: [facility] Start: 11-04-2021 End: 11-05-[address] LEN DELGADO Facility:[facility]1 Procedures Date Procedure Procedure Detail Performing Clinician Start: 01-04-2023 MRI of head [employer]USBAN[employer] TEACHER Tanvi miguelito Mejias Work Phone: Start: 05-12-2022 Plain X-ray of left elbow DO [employer] Work Phone: Start: 04-20-2022 Decompression of med ursula nerve DO Len [employer] Work Phone: Start: 03-05-2022 MRI of left elbow DO [facility] Work Phone: Start: 01-06-2022 Plain X-ray of left elbow MD Giovany Krishna Work Phone: Start: 11-04-[address] MERCEDES DELGADO Comment on above: Performed By: #### P SAD #### [facility] [address] [place] [address] Dr. Steven Camarillo Plan of Treatment Date Care Activity Detail Author Start: 04-20-2022 [facility] Start: 04-20-2022 [facility] Glucose measurement estimated from glycated hemoglobin [facility] Payers Date Payer Category Payer Private Health Insurance [id number] 2022 Self-pay 1960 Unknown [id number] 1957 Unknown [id number] Private Health Insurance [id number] Unknown [employer] [id number] Unknown [id number] Unknown [id number] Unknown [id number] Unknown [id number] Social History Date Type Detail Facility Unknown if ever smoked [facility] Other Sex Assigned At Sex Assigned At Bir th [employer] [facility] [place] [facility] Other Start: 1960 Sex Assigned At Male F [facility] Start: 04-07-2022 End: 04-20-2022 Tobacco smoking status NHIS Ex-smoker (finding) [facility] Goals Date Patient Goal Desired Activity /State Clinical Notes 01-06-2022 to 04-06-2023 Note Date & Type Note Facility 04-06-2023 Evaluation note Encounter Date Diagnosis Assessment Notes Mar, Bronchitis (ICD-10 - J40) Discussed diagnosis with patient. Will treat with ATB. No steroids needed today. Medication profile and possible SE reviewed with patient. Take as directed. Continue Albuterol inhaler PRN sob, wheezing, cough. Notify office if not improving or worsening. Patient verbalizes understanding and agrees to treatment plan. Mar, COPD exacerbation (ICD-10 - J44.1) [facility] [place] [facility] Other 10-06-2023 Evaluation note* Encounter Date Diagnosis Assessment Notes Treatment Notes Treatment Clinical Notes Dec, New onset of headaches after age 50 (ICD-10 - R51.9) Pt has new onset of headaches that have been daily for the last month. We discussed options fo revalutaion due to this new onset after the age of 52 would recommend further evaluation of symptoms. Pt is agreeable and order sent. Dec, Excessive sweating (ICD-10 - R61) Will check thyroid levels. DOes report a family history of thyroifd disorders. Dec, Impaired fasting glucose (ICD-10 - R73.01) Sugars reviewed and above normal values of <100. Dx of IFG discussed as well as the risk of progression to to DMII. Tx options reviewed - ADA diet, regular aerobic exercise (150 min weekly) with f/u in 6 months. Goal of A1C <6 % and FBG <100 discussed Dec, Screening for metabolic disorder (ICD-10 - Z13.228) will call lab and diagnostic results and recommendations Dec, Screening for lipid disorders (ICD-10 - Z13.220) Dec, Screening for deficiency anemia (ICD-10 - Z13.0) Dec, Shortness of breath (ICD-10 - R06.02) Discussed that he is following with Dr. Pritchett from pulmonology and he just compelted a CT of the chest as well as Pulmonary function test. Dec, Heart murmur (ICD-10 - R01.1) New murmur noted today on exam-- echo ordered. Will call with resuts. [employer] Other 08-08-2023 Evaluation note* Encounter Date Diagnosis Assessment Notes Treatment Notes Treatment Clinical Notes Oct, Left lateral epicondylitis (ICD-10 - M77.12) Oct, Other specified postprocedural states (ICD-10 - Z98.890) Patient is progressing well from surgery. Instructed on nursing home motion and strengthening exercises. Activity as tolerated. Call with questions/concerns. [employer] Other 07-29-2023 Evaluation note* Encounter Date Diagnosis Assessment Notes Treatment Notes Treatment Clinical Notes Sep, Acute lower respiratory infection (ICD-10 - J22) Discussed with patient concern for secondary pneumonia. Will cover with azithromycin. Finish entire course. Fluids and rest encouraged. Mucinex DM encouraged [id number]. May continue Zyrtec. Patient is encouraged to follow-up with PCP for recheck in the next 4 to 6 days. ER if any significantly worsening symptoms, fever, severe shortness of breath. Offered COVID testing in office, patient declines. [employer] Other 05-09-2023 Evaluation note* Encounter Date Diagnosis Assessment Notes Treatment Notes Treatment Clinical Notes July, Left lateral epicondylitis (ICD-10 - M77.12) July, Other specified postprocedural states (ICD-10 - Z98.890) Patient is progressing well from surgery. Continue motion and strengthening exercises. Progress activity as tolerated up to 50 lbs of lifting. Call with questions/concerns . Examination and assessment of this patient was performed by Milagro Ann NP and patient will continue with the treatment plan per Dr. Krishna, who initiated this treatment plan. Dr. Krishna is present in the office today and providing supervision. [employer] Other 02-23-2023 Evaluation note* Encounter Date Diagnosis Assessment Notes Treatment Notes Treatment Clinical Notes Apr, Left lateral epicondylitis (ICD-10 - M77.12) Apr, Other specified postprocedural states (ICD-10 - Z98.890) A prescription for anti-inflammatorie s was provided with instructions on use. Rx Diclofenac 75mg twice daily. Patient also instructed on alternating the use of heat and ice [employer] Other 02-09-2023 Evaluation note* Encounter Date Diagnosis Assessment Notes Treatment Notes Treatment Clinical Notes Apr, Left lateral epicondylitis (ICD-10 - M77.12) Apr, Other specified postprocedural states (ICD-10 - Z98.890) Patient returns to the office 1 week s/p Left Elbow Lateral Epicondylar Release. Insicion site remains clean and dry. No signs of erythema or infection noted. Patient is to begin gentle motion and strengthening exercises at home as demonstrated in office today. He may come in and out of his sling, advised to wear sling when out and about for protection. We will follow up in 6 weeks time for progression recheck and will discuss the possibility of formal physical therapy at that time. Patient voiced understanding and had no futher questions at this time. [employer] Other 02-01-2023 History general Narrative - Reported* Type Description Date Medical History diabetes mallitus Surgical History gallbladder removal- [facility] Surgical History right knee cyst removal Surgical History broken nose Surgical History Left Elbow Lateral Epicondylar Release 04/20/2022 Hospitalization History see above Hospitalization History pneumonia [employer] Other 01-30-2023 Evaluation note* Encounter Date Diagnosis Assessment Notes Treatment Notes Treatment Clinical Notes Mar, Other specified postprocedural states (ICD-10 - Z98.890) [employer] Other 01-10-2023 Evaluation note* Encounter Date Diagnosis Assessment Notes Treatment Notes Treatment Clinical Notes Mar, Left elbow pain (ICD-10 - M25.522) Mar, Left lateral epicondylitis (ICD-10 - M77.12) MRI results reviewed with patient as evidence of lateral epicondylitis. We discussed all treatment options including gentle stretching and strength exercise as pain allows, use of non-steroidal anti-inflammatory medication, formal physical therapy as well as cortisone injection and surgical release. As patient has failed conservative treatment, he wishes to pursue surgical release at this time. Surgical procedure, risks, recovery and restrictions discussed in detail. Patient was in understanding and wishes to proceed. Mar, Pre-op exam (ICD-10 - Z01.818) [employer] Other 10-20-2022 Evaluation note* Encounter Date Diagnosis Assessment Notes Treatment Notes Treatment Clinical Notes Dec, Left elbow pain (ICD-10 - M25.522) Dec, Radial tunnel syndrome of left upper extremity (ICD-10 - G56.32) Radiographs reviewed with patient as no abnormality. We will treat this as radial tunnel syndrome at this time. Instructed on massage and gentle stretching exercises of the elbow, these were demonstrated. Offered cortisone injection today. Patient was prepped and cortisone was injected into the area of the left radial tunnel under sterile conditions. Patient tolerated well with no adverse reactions. Activity as tolerated. Formal therapy order provided. If no improvement with conservative treatment, may follow up with Dr Charles, upper extremity/hand specialist for further treatment options. [employer] Other Evaluation noteNo assessment information available [facility] [employer] Work Phone: Evaluation noteNo [employer] Other Evaluation note* Diagnosis Onset Date Resolution Status Bronchitis acute [facility] Work Phone: History general Narrative - Reported* Type Description Date Medical History diabetes mallitus Surgical History gallbladder revmoval Surgical History right knee cyst removal Surgical History broken nose Hospitalization History see above Hospitalization History pneumonia [employer] Other Hisgnyn general Narrative - Reported* Type Description Date Medical History diabetes mallitus Medical History GERD Surgical History gallbladder removal- [facility] Surgical History right knee cyst removal Surgical History broken nose Surgical History Left Elbow Lateral Epicondylar Release 04/20/2022 Hospitalization History see above Hospitalization History pneumonia [employer] Other Hisvvws general Narrative - Reported* Type Description Date Medical History diabetes mallitus Medical History GERD Medical History COPD/Asthma Medical History hyperthyroid Surgical History gallbladder removal- [facility] Surgical History right knee cyst removal Surgical History broken nose Surgical History Left Elbow Lateral Epicondylar Release 04/20/2022 Hospitalization History see above Hospitalization History pneumonia [employer] Other Hospital Discharge instructions Additional Instructions The following instructions must be followed very closely: 1. If you need pain pills, start before pain becomes intense. Antibiotics and pain pills are frequently less upsetting to your stomach if you take them with food such as crackers or bread. 2. If you are having excessive or persistent pain, swelling, bleeding, nausea, vomiting, or any other problems, you should first call your surgeon for advice. If you are unable to contact your surgeon, seek help from a hospital emergency room. If you were given drugs to make you drowsy and or pain medication, follow these instructions: 1. You should spend the remainder of the day and evening resting. 2. You should not attempt to walk, including going to the bathroom, without assistance. You may be lightheaded from the medications you received. 3. Eat light today to avoid nausea. You should be able to return to your normal diet 24 to 36 hours after surgery. 4. For the next 24 hours you should not consume alcohol, attempt to drive, use any power tools, sign important documents or make important personal or business decisions. After that do so only if you feel perfectly normal and alert. 5. Follow carefully any verbal or written instructions your surgeon may have given you. SURGEON'S INSTRUCTIONS 1. Elevate hand and arm to reduce pain and swelling for the next 48 hours. 2. Take pain medicine every 4 hours as needed to control pain. 3. Keep fingers moving. 4. Ok to change dressing after 48 hrs, then daily. Keep protected during activity and sleeping 5. Keep the dressing clean and dry. 6. No heavy lifting until you see the surgeon in the office. 7. Call the office to arrange an appointment to be seen in one week. Office number: [phone] Work Phone: Summary Purpose Family History No Family History Records Found Relationship Condition Age at Onset Recorded Date/T marbin Not Specified Type 2 diabetes mellitus Unknown Relationship Condition Age at Onset Recorded Date/T mrabin Not Specified Type 2 diabetes mellitus Unknown father Malignant neoplasm Unknown Chronic obstructive pulmonary disease Unk nown Unknown Not Specified Unknown Diabetes mellitus Unknown Relationship Condition Age at Onset Recorded Date/T marbin mother Type 2 diabetes mellitus Unknown father Malignant neoplasm Unknown Chronic obstructive pulmonary disease Unk nown Unknown mother Unknown Diabetes mellitus Unknown Advance Directives No Advanced Directives Records Found Advance Directive Response Recorded Date/ Time Advance Directives No January 11, 2022 4:31pm Advance Directive Response Recorded Date/ Time Advance Directives No January 11, 2022 5:31pm Chief Complaint and Reason for Visit Chief Complaint l rupture collateral Elbow Pain Chief Complaint l rupture collateral Elbow Pain Elbow Pain Chief Complaint R51.9 R06.02 R01.1 Chief Complaint Sinus Pressure- Covi d Negative bronchitis R61 Z13.0 R73.01 Z13.228 Z13.220 E05.90 E05.00 Reason for Visit Bronchitis Chief Complaint E05.90 E05.00 Additional Source Comments (unrecognized sect ion and content) No Status Records FoundNo Status Records Found INFORMATION SOURCE (unrecogn ized section and content) DATE CREATED AUTHOR 11/10/2021 [facility] DATE CREATED AUTHOR AUTHOR'S ORGANIZ ATION 11/07/2023 [facility] REASON FOR VISIT (unrecogniz ed section and content) Left Elbow PainquestionLeft Elbow Painpost op scriptsRecheck Left ElbowpostopLT ELBOW PAINRecheck Left ElbowCHEST COLD , COUGH WITH MUCUSRecheck Left Elbowsweating a lotlab resultsMRI resultsEchocardiogram resultsRefillSinus pressure- COVID Negative Care Teams (unrecognized sec tion and content) Team Status: Inactive Member Role Status Dates Giovany Krishna MD Attending Provider Active Team Status: Inactive Member Role Status Dates Len Delgado DO Primary Care Provider Active Giovany Krishna MD Attending Provider Active Team Status: Inactive Member Role Status Dates Len Delgado , DO Primary Care Provider, Attending Pr gurmeet Active Team Status: Active Member Role Status Dates Len Delgado , DO Primary Care Provider Active Team Status: Inactive Member Role Status Dates Len Delgado , DO Primary Care Provider Active Milagro Ann PAVING INSPECTOR-C Attending Provider Active Team Status: Active Member Role Status Dates Milagro Mejias POULTRY HUSBANDRY TEACHER PAVING INSPECTOR-C Primary Care Provider Active Team Status: Inactive Member Role Status Dates Milagro Mejias APRN PAVING INSPECTOR-C Primary Care Provider, Attending Provider Active Team Status: Inactive Member Role Status Dates Milagro Mejias APRN PAVING INSPECTOR-C Attending Provider Act clary Start: April 06, 2023 End: April 06, 2023 Team Status: Inactive Member Role Status Dates Milagro Mejias APRN PAVING INSPECTOR-C Primary Care Provider, Attending Provider Active Start: May 29, 2023 End: May 29, 2023 Team Status: Inactive Member Role Status Dates Milagro Mejias APRN PAVING INSPECTOR-C Primary Care Provider, Attending Provider Active Start: July 03, 2023 End: July 03, 2023 Kourtney Woods MD Other Provider Active Start: July 03, 2023 End: July 03, 2023 Team Status: Inactive Member Role Status Dates Milagro Mejias APRN PAVING INSPECTOR-C Primary Care Provider Active Start: October 30, 2023 End: October 30, 2023 Kourtney Woods MD Attending Provider Active Sta rt: October 30, 2023 End: October 30, 2023 Goals (unrecognized section and content) Goals may be documented in a n alternate section FOR RECORDS PERTAINING TO PATIENTS WHO ARE OR HAVE BEEN ENROLLED IN A CHEMICAL DEPENDENCY/SUBSTANCEABUSE PROGRAM, SOME INFORMATION MAY BE OMITTED. This clinical summary was aggregated from multiple sources. Caution should be exercised in using it in the provision of clinical care. This summary normalizes information from multiple sources, and as a consequence, information in this document may materially change the coding, format and clinical context of patient data. In addition, data may be omitted in some cases. CLINICAL DECISIONS SHOULD BE BASED ON THE PRIMARY CLINICAL RECORDS. [facility] [employer] provides no warranty or guarantee of the accuracy or completeness of information in this document.
--- NOTE | 2023-12-25 15:45 | CT_ITS ---
[address] [address] Patient Name: ALEX PADILLA MRN: [id number] date: 1960 Sex: M Assigned Patient Location: CT Current Patient Location: Accession/Order Number: [id number] Exam Date: 12/25/2023 15:40 Report Date: 12/26/2023 09:08 At the request of: ADALGISA RASCON Procedure: CT lung screening low-dose EXAMINATION: CT lung screening low-dose HISTORY: Screening For Malignant Neoplasm Of Respiratory COMPARISON: No relevant comparison available. TECHNIQUE: Axial, Coronal, and Sagittal images were created without the administration of IV contrast material. Dose reduction techniques were achieved by using automated exposure control and/or adjustment of mA and/or kV according to patient size and/or use of iterative reconstruction technique. FINDINGS: LUNGS: Band of soft tissue density within posterior left costophrenic angle 1.3 cm in diameter by 5.2 cm in length. Multiple new nodular opacities scattered within the lungs, largest is a 7 mm nodule within right upper lobe just cephalad and lateral to the hilum PLEURA: Posterior left lung base pleural plaque. No mass, effusion, or pneumothorax. VASCULATURE: No abnormality. MARIA ISABEL: No mass or pathologic adenopathy. MEDIASTINUM: No mass or pathologic adenopathy. CARDIAC: No enlargement, pericardial thickening, or pericardial effusion. Coronary Artery calcifications: AORTA: No aneurysm or dissection. CHEST WALL: No mass or axillary adenopathy BONES: No bone lesion or fracture. LIMITED ABDOMEN: No suspicious findings. Limited images of the upper abdomen. OTHER: Negative. CT/CT lung screening low-dose IMPRESSION: 1. Lung-RADS Category 4A- Suspicious. Findings for which additional diagnostic testing and/ or tissue sampling is recommended. 3 month LDCT; PET/CT may be used when there is a >= 8 mm solid component. 2. Follow-up CT chest without contrast in 3 months is recommended to document stability versus clearing of the new nodules/infiltrates. Electronically authenticated by: CHELSY ALEJO Date: 12/26/2023 09:08
== END 2023-12-25 15:36 | disposition home or self-care (01) ==
LOC: CT 15:35
PROVIDERS: PCP Nurse Practitioner Family; Visit Provider Internal Medicine
DX: R91.8 Other nonspecific abnormal finding of lung field (principal); Z12.2 Encounter for screening for malignant neoplasm of respiratory organs
CPT/HCPCS: 71271

== ENCOUNTER 2024-04-10 10:31 | Outpatient (OUT) | payer OTHER, SELFPAY ==
--- OUTSIDE RECORDS SUMMARY | 2024-04-10 10:52 | XMS_ITS | CCD ---
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 Name Role Phone HOUSE, DR WILKINS Attending Unavailable HOUSE, DR WILKINS Consulting Unavailable HOUSE, DR WILKINS Primary Care Unavailable DANNY, DR WILKINS Admitting Unavailable Giovany Krishna Unavailable MD Giovany Krishna Attending Provider [phone] DO Len Delgado Primary Care Provider [phone] DO Len Delgado Attending Provider [phone] MD Giovany Krishna Attending Provider JUNIOR Ann Attending Provider [phone] Milagro Ann Unavailable Tracy Wong Unavailable Milagro Mejias Unavailable MIGUEL Mejias Primary Care Provider MIGUEL Mejias Attending Provider MIGUEL Mejias Primary Care Provider MIGUEL Mejias Attending Provider [phone] MD Kourtney Woods Other Provider MIGUEL Mejias Primary Care Provider MD Kourtney Woods Attending Provider [phone] Milagro Mejias Attending Unavailable Milagro Mejias [...] every 4 hrs for 5 days ENZO: [id number] Mar, Active [id number] 200 actuat albuterol 0.09 mg/actuat metered dose [...] ALT [Catalytic activity/Vol] 22 U/L Normal 7-52 [facility] Comment on above: Order Comment: NONFA STING. JKW Performed By: #### T 4F, HEPATIC, T3F, TSH3 #### [facility] [address] Albumin [Mass/volume] in Ser um or Plasma by Bromocresol green (BCG) dye binding methoOrdered By: Kourtney Woods on 10-30-2023 Albumin BCG dye [Mass/Vol] 4.5 g/dL 3.5-5.7 [facility] Alkaline phosphatase [Enzyma tic activity/volume] in Serum or PlasmaOrdered By: Kourtney Woods on 10-30-2023 ALP [Catalytic activity/Vol] 78 U/L Normal 34-104 [facility] Comment on above: Order Comment: NONFA STING. JKW Performed By: #### T 4F, HEPATIC, T3F, TSH3 #### [facility] [address] Aspartate aminotransferase [ Enzymatic activity/volume] in Serum or PlasmaOrdered By: Kourtney Woods on 10-30-2023 AST [Catalytic activity/Vol] 24 U/L Normal 13-39 [facility] Comment on above: Order Comment: NONFA STING. JKW Performed By: #### T 4F, HEPATIC, T3F, TSH3 #### [facility] [address] Bilirubin.direct [Mass/volum e] in Serum or PlasmaOrdered By: Kourtney Woods on 10-30-2023 Bilirubin.direct [Mass/Vol] 0.10 mg/dL 0.03-0.18 [facility] Bilirubin.total [Mass/volume ] in Serum or PlasmaOrdered By: Kourtney Woods on 10-30-2023 Bilirubin [Mass/Vol] 0.6 mg/dL Normal 0.3-1.0 [facility] Comment on above: Order Comment: NONFA STING. JKW Performed By: #### T 4F, HEPATIC, T3F, TSH3 #### [facility] [address] Hepatic Panelon 10-30-2023 Albumin [Mass/Vol] 4.5 g/dL Normal 3.5-5.7 [facility] Comment on above: Order Comment: NONFA STING. JKW Performed By: #### T 4F, HEPATIC, T3F, TSH3 #### [facility] [address] Bilirubin,Indirect 0.5 mg/dL Normal [facility] Comment on above: Order Comment: NONFA STING. JKW Performed By: #### T 4F, HEPATIC, T3F, TSH3 #### [facility] [address] Bilirubin.indirect [Mass/Vol] 0.10 mg/dL Normal 0.03-0.18 [facility] Comment on above: Order Comment: NONFA STING. JKW Performed By: #### T 4F, HEPATIC, T3F, TSH3 #### [address] Protein [Mass/volume] in Ser um or PlasmaOrdered By: Kourtney Woods on 10-30-2023 Protein [Mass/Vol] 6.9 g/dL Normal 6.4-8.9 [facility] Comment on above: Order Comment: NONFA STING. JKW Performed By: #### T 4F, HEPATIC, T3F, TSH3 #### [facility] [address] [place] [id number] [facility] Serum globulin measurement b y calculation (mass/volume)Ordered By: Kourtney Woods on 10-30-2023 Globulin (S) [Mass/Vol] 2.4 g/dL Normal [facility] Comment on above: Order Comment: NONFA STING. JKW Performed By: #### T 4F, HEPATIC, T3F, TSH3 #### [facility] [address] Serum or plasma albumin/glob ulin mass ratioOrdered By: Kourtney Woods on 10-30-2023 Albumin/Globulin [Mass ratio] 1.9 {ratio} Normal [facility] Comment on above: Order Comment: NONFA STING. JKW Performed By: #### T 4F, HEPATIC, T3F, TSH3 #### [facility] [address] Serum or plasma non-glucuron idated bilirubin measurement (mass/volume)Ordered By: Kourtney Woods on 10-30-2023 Bilirubin.indirect [Mass/Vol] 0.5 mg/dL [facility] Thyrotropin [Units/volume] i n Serum or PlasmaOrdered By: Kourtney Woods on 10-30-2023 TSH Qn 2.62 m[IU]/L Normal 0.45-5.33 [facility] Comment on above: Order Comment: Reaso n for Exam Screening for lipid disorders Reason for Exam Screening for metabolic disorder Result Comment: PERF ORMED BY: [address] [place] [address] PATHOLOGIST ADMINISTRATIVE ANALYST JOVITA WATSON M.D. Performed By: #### A 1C WT eA, CMP, LIPID, CBC #### [facility] [address] [place] [address] Thyroxine (T4) free [Mass/vo lume] in Serum or PlasmaOrdered By: Kourtney Woods on 10-30-2023 Free T4 [Mass/Vol] 0.65 ng/dL Normal 0.61-1.12 [facility] Comment on above: Order Comment: Reaso n for Exam Screening for lipid disorders Reason for Exam Screening for metabolic disorder Performed By: #### A 1C WTH eA, CMP, LIPID, CBC #### [facility] [address] [place] [address] [place] Triiodothyronine (T3) Freeon 10-30-2023 Triiodothyronine (T3) Free 3.22 pg/mL Normal 2.50-3.90 [facility] Comment on above: Order Comment: Reaso n for Exam Screening for lipid disorders Reason for Exam Screening for metabolic disorder Result Comment: PERF ORMED BY: [place] [address] PATHOLOGIST ADMINISTRATIVE ANALYST JOVITA WATSON M.D. Performed By: #### A 1C WTH eA, CMP, LIPID, CBC #### [facility] [address] Triiodothyronine (T3) Free [ Mass/volume] in Serum or PlasmaOrdered By: Kourtney Woods on 10-30-2023 Free T3 [Mass/Vol] 3.22 pg/mL 2.50-3.90 [facility] A1C with Estimated Average [facility] 07-03-2023 Glucose [Mass/Vol] 120 mg/dL Normal [facility] Comment on above: Order Comment: Reaso n for Exam Impaired fasting glucose Result Comment: PERF ORMED BY: [place] [address] PATHOLOGIST ADMINISTRATIVE ANALYST JOVITA WATSON M.D. Performed By: #### A 1C WTH eA, CMP, LIPID, CBC #### [address] HbA1c (Bld) [Mass fraction] 5.8 % High 4.3-5.6 [facility] Comment on above: Order Comment: Reaso n for Exam Impaired fasting glucose Result Comment: Incr eased risk for diabetes: 5.7 - 6.4 diabetes: >6.4 glycemic control for adults with diabetes: <7.0 Performed By: #### A 1C WTH eA, CMP, LIPID, CBC #### [place] [address] [place] Alanine aminotransferase [En zymatic activity/volume] in Serum or PlasmaOrdered By: Milagro Mejias on 07-03-2023 ALT [Catalytic activity/Vol] 19 U/L Normal 7-52 [facility] Comment on above: Order Comment: Reaso n for Exam Screening for lipid disorders Reason for Exam Screening for metabolic disorder Performed By: #### A 1C WTH eA, CMP, LIPID, CBC #### [facility] [address] Albumin [Mass/volume] in Ser um or Plasma by Bromocresol green (BCG) dye binding methoOrdered By: Milagro Mejias on 07-03-2023 Albumin BCG dye [Mass/Vol] 4.5 g/dL 3.5-5.7 [facility] Alkaline phosphatase [Enzyma tic activity/volume] in Serum or PlasmaOrdered By: Milagro Mejias on 07-03-2023 ALP [Catalytic activity/Vol] 84 U/L Normal 34-104 [facility] Comment on above: Order Comment: Reaso n for Exam Screening for lipid disorders Reason for Exam Screening for metabolic disorder Performed By: #### A 1C WT eA, CMP, LIPID, CBC #### [facility] [address] Aspartate aminotransferase [ Enzymatic activity/volume] in Serum or PlasmaOrdered By: Milagro Mejias on 07-03-2023 AST [Catalytic activity/Vol] 24 U/L Normal 13-39 [facility] Comment on above: Order Comment: Reaso n for Exam Screening for lipid disorders Reason for Exam Screening for metabolic disorder Performed By: #### A 1C WTH eA, CMP, LIPID, CBC #### [facility] [address] Automated basophil %Ordered By: Milagro Mejias on 07-03-2023 Basophils/100 WBC (Bld) 0.5 % Normal . [facility] Comment on above: Order Comment: Reaso n for Exam Screening for deficiency anemia Performed By: #### A 1C WTH eA, CMP, LIPID, CBC #### [facility] [address] Automated basophil countOrde red By: Milagro Mejias on 07-03-2023 Basophils (Bld) [#/Vol] 0.0 10*3/uL Normal 0.0-0.2 [facility] Comment on above: Order Comment: Reaso n for Exam Screening for deficiency anemia Result Comment: PERF ORMED BY: [place] [address] PATHOLOGIST ADMINISTRATIVE ANALYST JOVITA WATSON M.D. Performed By: #### A 1C WTH eA, CMP, LIPID, CBC #### [facility] [address] Automated blood monocyte cou ntOrdered By: Milagro Mejias on 07-03-2023 Monocytes (Bld) [#/Vol] 0.6 10*3/uL Normal 0.0-0.8 [facility] Comment on above: Order Comment: Reaso n for Exam Screening for deficiency anemia Performed By: #### A 1C WTH eA, CMP, LIPID, CBC #### [address] Automated eosinophil %Ordere d By: Milagro Mejias on 07-03-2023 Eosinophils/100 WBC (Bld) 1.6 % Normal . [facility] Comment on above: Order Comment: Reaso n for Exam Screening for deficiency anemia Performed By: #### A 1C WTH eA, CMP, LIPID, CBC #### [address] Automated eosinophil countOr dered By: Milagro Mejias on 07-03-2023 Eosinophils (Bld) [#/Vol] 0.1 10*3/uL Normal 0.0-0.45 [facility] Comment on above: Order Comment: Reaso n for Exam Screening for deficiency anemia Performed By: #### A 1C WTH eA, CMP, LIPID, CBC #### [address] Automated monocyte %Ordered By: Milagro Mejias on 07-03-2023 Monocytes/100 WBC (Bld) 6.9 % Normal . [facility] Comment on above: Order Comment: Reaso n for Exam Screening for deficiency anemia Performed By: #### A 1C WTH eA, CMP, LIPID, CBC #### [address] Automated neutrophil %Ordere d By: Milagro Mejias on 07-03-2023 Neutrophils/100 WBC (Bld) 74.2 % Normal . [facility] Comment on above: Order Comment: Reaso n for Exam Screening for deficiency anemia Performed By: #### A 1C WTH eA, CMP, LIPID, CBC #### [facility] [address] [place] [id number] [place] Bilirubin.total [Mass/volume ] in Serum or PlasmaOrdered By: Milagro Mejias on 07-03-2023 Bilirubin [Mass/Vol] 0.5 mg/dL Normal 0.3-1.0 [facility] Comment on above: Order Comment: Reaso n for Exam Screening for lipid disorders Reason for Exam Screening for metabolic disorder Performed By: #### A 1C WTH eA, CMP, LIPID, CBC #### [facility] [address] [place] [id number] [place] Calcium [Mass/volume] in Ser um or PlasmaOrdered By: Milagro Mejias on 07-03-2023 Calcium [Mass/Vol] 9.7 mg/dL Normal 8.6-10.3 [facility] Comment on above: Order Comment: Reaso n for Exam Screening for lipid disorders Reason for Exam Screening for metabolic disorder Performed By: #### A 1C WTH eA, CMP, LIPID, CBC #### [facility] [address] [place] [id number] [place] Carbon dioxide, total [Moles /volume] in Serum or PlasmaOrdered By: Milagro Mejias on 07-03-2023 CO2 [Moles/Vol] 28.5 mmol/L Normal 21.0-31.0 [facility] Comment on above: Order Comment: Reaso n for Exam Screening for lipid disorders Reason for Exam Screening for metabolic disorder Performed By: #### A 1C WTH eA, CMP, LIPID, CBC #### [facility] [address] [place] [id number] [place] Chloride [Moles/volume] in S brii or PlasmaOrdered By: Milagro Mejias on 07-03-2023 Chloride [Moles/Vol] 103 mmol/L Normal 98-107 [facility] Comment on above: Order Comment: Reaso n for Exam Screening for lipid disorders Reason for Exam Screening for metabolic disorder Performed By: #### A 1C WTH eA, CMP, LIPID, CBC #### [facility] [address] Cholesterol [Mass/volume] in Serum or PlasmaOrdered By: Milagro Mejias on 07-03-2023 Cholesterol [Mass/Vol] 137 mg/dL Low 140-200 [facility] Comment on above: Chol less than [...] 1C WTH eA, CMP, LIPID, CBC #### [facility] [address] Cholesterol in LDL Calc [Mas s/Vol]Ordered By: Milagro Mejias on 07-03-2023 Cholesterol in LDL [Mass/Vol] 67 mg/dL 0-100 [facility] Comment on above: LDL ATP III CLASSIFI CATIONLDL less than 100 mg/dL OptimalLDL 100-129 mg/dL Near or above optimalLDL 130-159 mg/dL Borderline highLDL 160-189 mg/dL HighLDL greater than 189 mg/dL Very high Cholesterol in VLDL Calc [Ma ss/Vol]Ordered By: Milagro Mejias on 07-03-2023 Cholesterol in VLDL [Mass/Vol] 32 mg/dL [facility] Complete Blood Count Auto Di ffon 07-03-2023 Mean Corpuscular HGB Conc 33.7 g/dL Normal 32.5-35.6 [facility] Comment on above: Order Comment: Reaso n for Exam Screening for deficiency anemia Performed By: #### A 1C WTH eA, CMP, LIPID, CBC #### [facility] [address] [place] [address] [place] NRBC% 0.1 /100{WBC} Normal 0-0.[address] [facility] Comment on above: Order Comment: Reaso n for Exam Screening for deficiency anemia Performed By: #### A 1C WTH eA, CMP, LIPID, CBC #### [facility] [address] Comprehensive Metabolic Pane venecia 07-03-2023 Albumin [Mass/Vol] 4.5 g/dL Normal 3.5-5.7 [facility] Comment on above: Order Comment: Reaso n for Exam Screening for lipid disorders Reason for Exam Screening for metabolic disorder Performed By: #### A 1C WTH eA, CMP, LIPID, CBC #### [facility] [address] GFR/1.73 sq M.predicted MDRD (S/P/Bld) [Vol rate/Area] mL/min/{1.73_m2} Normal [facility] Comment on above: Order Comment: Reaso n for Exam Screening for lipid disorders Reason for Exam Screening for metabolic disorder Performed By: #### A 1C WTH eA, CMP, LIPID, CBC #### [facility] [address] [place] [address] Creatinine [Mass/volume] in Serum or PlasmaOrdered By: Milagro Mejias on 07-03-2023 Creatinine [Mass/Vol] 1.29 mg/dL Normal 0.70-1.30 [facility] Comment on above: Order Comment: Reaso n for Exam Screening for lipid disorders Reason for Exam Screening for metabolic disorder Performed By: #### A 1C WTH eA, CMP, LIPID, CBC #### [facility] [address] [place] [address] Erythrocyte distribution wid th [Ratio] by Automated countOrdered By: Milagro Mejias on 07-03-2023 Erythrocyte distribution width (RBC) [Ratio] 15.6 % High 12.0-14.8 [facility] Comment on above: Order Comment: Reaso n for Exam Screening for deficiency anemia Performed By: #### A 1C WTH eA, CMP, LIPID, CBC #### [facility] [address] [place] [address] [place] Erythrocytes [#/volume] in B lood by Automated countOrdered By: Milagro Mejias on 07-03-2023 RBC (Bld) [#/Vol] 5.50 10*6/uL Normal 3.90-5.60 [facility] Comment on above: Order Comment: Reaso n for Exam Screening for deficiency anemia Performed By: #### A 1C WTH eA, CMP, LIPID, CBC #### [facility] [address] [place] [address] [place] Glucose [Mass/volume] in Ser um or PlasmaOrdered By: Milagro Mejias on 07-03-2023 Glucose [Mass/Vol] 117 mg/dL High 70-100 [facility] Comment on above: ADA recommended refe rence rangeRandom Glucose Reference Range is dependent on time and content of last meal. Glucose of more than 200 mg/dL in a nonstressed, ambulatory subject supports the diagnosis of Diabetes Mellitus. Order Comment: Reaso n for Exam Screening for lipid disorders Reason for Exam Screening for metabolic disorder Result Comment: [place] om Glucose Reference Range is dependent on time and content of last meal. Glucose of more than 200 mg/dL in a nonstressed, ambulatory subject supports the diagnosis of Diabetes Mellitus. ADA recommended reference range Performed By: #### A 1C WTH eA, CMP, LIPID, CBC #### [place] [address] [place] Hematocrit [Volume Fraction] of Blood by Automated countOrdered By: Milagro Mejias on 07-03-2023 Hematocrit (Bld) [Volume fraction] 46.6 % Normal 38.8-50.0 [facility] Comment on above: Order Comment: Reaso n for Exam Screening for deficiency anemia Performed By: #### A 1C WTH eA, CMP, LIPID, CBC #### [facility] [address] [place] [address] [place] Hemoglobin [Mass/volume] in BloodOrdered By: Milagro Mejias on 07-03-2023 Hemoglobin (Bld) [Mass/Vol] 15.7 g/dL Normal 13.0-17.0 [facility] Comment on above: Order Comment: Reaso n for Exam Screening for deficiency anemia Performed By: #### A 1C WTH eA, CMP, LIPID, CBC #### [facility] [address] [place] [id number] [place] Leukocytes [#/volume] correc debbie for nucleated erythrocytes in Blood by Automated counOrdered By: Milagro Mejias on 07-03-2023 WBC corrected for nucl RBC Auto (Bld) [#/Vol] 8.0 10*3/uL 4.1-10.5 [facility] Leukocytes [#/volume] in Blo od by Automated countOrdered By: Milagro Mejias on 07-03-2023 WBC (Bld) [#/Vol] 8.0 10*3/uL Normal 4.1-10.5 [facility] Comment on above: Order Comment: Reaso n for Exam Screening for deficiency anemia Performed By: #### A 1C WTH eA, CMP, LIPID, CBC #### [facility] [address] Lipid Panelon 07-03-2023 LDL Cholesterol,Calculated 67 mg/dL Normal 0-100 [facility] Comment on above: Order Comment: [...] 1C WTH eA, CMP, LIPID, CBC #### [facility] [address] Triglyceride w/Reflex 164 mg/dL High 0-149 [facility] Comment on above: Order Comment: [...] 1C WTH eA, CMP, LIPID, CBC #### [facility] [address] VLDL CHOLESTEROL 32 mg/dL Normal [facility] Comment on above: Order Comment: Reaso n for Exam Screening for lipid disorders Reason for Exam Screening for metabolic disorder Performed By: #### A 1C WTH eA, CMP, LIPID, CBC #### [facility] [address] Lymphocytes [#/volume] in Bl ood by Automated countOrdered By: Milagro Mejias on 07-03-2023 Lymphocytes (Bld) [#/Vol] 1.3 10*3/uL Normal 1.00-4.8 [facility] Comment on above: Order Comment: Reaso n for Exam Screening for deficiency anemia Performed By: #### A 1C WTH eA, CMP, LIPID, CBC #### [address] Lymphocytes/100 leukocytes i n Blood by Automated countOrdered By: Milagro Mejias on 07-03-2023 Lymphocytes/100 WBC (Bld) 16.8 % Normal . [facility] Comment on above: Order Comment: Reaso n for Exam Screening for deficiency anemia Performed By: #### A 1C WTH eA, CMP, LIPID, CBC #### [address] MCH [Entitic mass] by Automa debbie countOrdered By: Milagro Mejias on 07-03-2023 MCH (RBC) [Entitic mass] 28.6 pg Normal 27.5-35.2 [facility] Comment on above: Order Comment: Reaso n for Exam Screening for deficiency anemia Performed By: #### A 1C WTH eA, CMP, LIPID, CBC #### [address] MCHC Auto (RBC) [Mass/Vol]Or dered By: Milagro Mejias on 07-03-2023 MCHC (RBC) [Mass/Vol] 33.7 g/dL 32.5-35.6 [facility] MCV [Entitic volume] by Auto mated countOrdered By: Milagro Mejias on 07-03-2023 MCV (RBC) [Entitic vol] 84.8 fL Normal 83.5-101 [facility] Comment on above: Order Comment: Reaso n for Exam Screening for deficiency anemia Performed By: #### A 1C WTH eA, CMP, LIPID, CBC #### [facility] [address] Neutrophils [#/volume] in Bl ood by Automated countOrdered By: Milagro Mejias on 07-03-2023 Neutrophils (Bld) [#/Vol] 6.0 10*3/uL Normal 1.8-7.7 [facility] Comment on above: Order Comment: Reaso n for Exam Screening for deficiency anemia Performed By: #### A 1C WT eA, CMP, LIPID, CBC #### [facility] [address] No Panel InformationOrdered By: Milagro Mejias on 07-03-2023 Estimated GFR (CKD-EPI) > 60.0 mL/Min [facility] Creatinine Clearance (Chem N/A [facility] Nucleated erythrocytes [Pres ence] in Blood by Automated countOrdered By: Milagro Mejias on 07-03-2023 Nucleated RBC Auto Ql (Bld) 0.1 /100{WBC} 0-0.5 [facility] Platelet mean volume [Entiti c volume] in Blood by Automated countOrdered By: Milagro Mejias on 07-03-2023 Platelet mean volume (Bld) [Entitic vol] 10.1 fL Normal 6.6-10.1 [facility] Comment on above: Order Comment: Reaso n for Exam Screening for deficiency anemia Performed By: #### A 1C WT eA, CMP, LIPID, CBC #### [facility] [address] [place] [address] [place] Platelets [#/volume] in Bloo d by Automated countOrdered By: Milagro Mejias on 07-03-2023 Platelets (Bld) [#/Vol] 168 10*3/uL Normal 150-450 [facility] Comment on above: Order Comment: Reaso n for Exam Screening for deficiency anemia Performed By: #### A 1C WTH eA, CMP, LIPID, CBC #### [facility] [address] [place] [address] Potassium [Moles/volume] in Serum or PlasmaOrdered By: Milagro Mejias on 07-03-2023 Potassium [Moles/Vol] 4.0 mmol/L Normal 3.5-5.1 [facility] Comment on above: Order Comment: Reaso n for Exam Screening for lipid disorders Reason for Exam Screening for metabolic disorder Performed By: #### A 1C WTH eA, CMP, LIPID, CBC #### [facility] [address] Protein [Mass/volume] in Ser um or PlasmaOrdered By: Milagro Mejias on 07-03-2023 Protein [Mass/Vol] 7.1 g/dL Normal 6.4-8.9 [facility] Comment on above: Order Comment: Reaso n for Exam Screening for lipid disorders Reason for Exam Screening for metabolic disorder Performed By: #### A 1C WTH eA, CMP, LIPID, CBC #### [facility] [address] [place] [address] Serum globulin measurement b y calculation (mass/volume)Ordered By: Milagro Mejias on 07-03-2023 Globulin (S) [Mass/Vol] 2.6 g/dL Normal [facility] Comment on above: Order Comment: Reaso n for Exam Screening for lipid disorders Reason for Exam Screening for metabolic disorder Performed By: #### A 1C WT eA, CMP, LIPID, CBC #### [facility] [address] [place] [id number] [facility] Serum or plasma albumin/glob ulin mass ratioOrdered By: Milagro Mejias on 07-03-2023 Albumin/Globulin [Mass ratio] 1.7 {ratio} Normal [facility] Comment on above: Order Comment: Reaso n for Exam Screening for lipid disorders Reason for Exam Screening for metabolic disorder Performed By: #### A 1C WTH eA, CMP, LIPID, CBC #### [facility] [address] [place] [id number] [place] Serum or plasma anion gap de terminationOrdered By: Milagro Mejias on 07-03-2023 Anion gap [Moles/Vol] 10.5 mmol/L Normal 6.0-15.0 [facility] Comment on above: Order Comment: Reaso n for Exam Screening for lipid disorders Reason for Exam Screening for metabolic disorder Performed By: #### A 1C WT eA, CMP, LIPID, CBC #### [facility] [address] Serum or plasma high density lipoprotein (HDL) cholesterol measurementOrdered By: Milagro Mejias on 07-03-2023 Cholesterol in HDL [Mass/Vol] 37 mg/dL Normal 23-92 [facility] Comment on above: HDL CHOL ATP-III [...] 1C WTH eA, CMP, LIPID, CBC #### [address] Serum or plasma total choles terol/high density lipoprotein (HDL) cholesterol mass ratOrdered By: Milagro Mejias on 07-03-2023 Cholesterol.total/Melanie sterol in HDL [Mass ratio] 3.7 {ratio} Normal <5.0 [facility] Comment on above: Order Comment: Reaso n for Exam Screening for lipid disorders Reason for Exam Screening for metabolic disorder Result Comment: PERF ORMED BY: [place] [address] PATHOLOGIST ADMINISTRATIVE ANALYST JOVITA WATSON M.D. Performed By: #### A 1C WTH eA, CMP, LIPID, CBC #### [facility] [address] Sodium [Moles/volume] in Ser um or PlasmaOrdered By: Milagro Mejias on 07-03-2023 Sodium [Moles/Vol] 138 mmol/L Normal 136-145 [facility] Comment on above: Order Comment: Reaso n for Exam Screening for lipid disorders Reason for Exam Screening for metabolic disorder Performed By: #### A 1C WTH eA, CMP, LIPID, CBC #### [facility] [address] Thyrotropin [Units/volume] i n Serum or PlasmaOrdered By: Milagro Mejias on 07-03-2023 TSH Qn 3.77 m[IU]/L Normal 0.45-5.33 [facility] Comment on above: Order Comment: Reaso n for Exam Excessive sweating Result Comment: PERF ORMED BY: [place] [address] PATHOLOGIST ADMINISTRATIVE ANALYST JOVITA WATSON M.D. Performed By: #### T SH3, T4F #### [address] Thyroxine (T4) free [Mass/vo lume] in Serum or PlasmaOrdered By: Milagro Mejias on 07-03-2023 Free T4 [Mass/Vol] 0.52 ng/dL Low 0.61-1.12 [facility] Comment on above: Order Comment: Reaso n for Exam Excessive sweating Performed By: #### T SH3, T4F #### [place] [id number] [facility] Triglyceride [Mass/volume] i n Serum or PlasmaOrdered By: Milagro Mejias on 07-03-2023 Triglyceride [Mass/Vol] 164 mg/dL 0-149 [facility] Comment on above: TRIG ATP III CLASSIF ICATIONTRIG less than 150 mg/dL NormalTRIG 150-199 mg/dL Borderline highTRIG 200-500 mg/dL High TRIG greater than 500 mg/dL Very highStandard traceable to the Center for Disease Conrtrol and Prevention (CDC) test method. Triiodothyronine (T3) Freeon 07-03-2023 Triiodothyronine (T3) Free 3.35 pg/mL Normal 2.50-3.90 [facility] Comment on above: Result Comment: PERF ORMED BY: [place] [address] PATHOLOGIST ADMINISTRATIVE ANALYST JOVITA WATSON M.D. Performed By: #### T 3F #### [facility] [address] [place], [place] [id number] [facility] Triiodothyronine (T3) Free [ Mass/volume] in Serum or PlasmaOrdered By: Kourtney Woods on 07-03-2023 Free T3 [Mass/Vol] 3.35 pg/mL 2.50-3.90 [facility] Urea nitrogen [Mass/volume] in Serum or PlasmaOrdered By: Milagro Mejias on 07-03-2023 Urea nitrogen [Mass/Vol] 15 mg/dL Normal 7-25 [facility] Comment on above: Order Comment: Reaso n for Exam Screening for lipid disorders Reason for Exam Screening for metabolic disorder Performed By: #### A 1C WTH eA, CMP, LIPID, CBC #### [facility] [address] echo transthoracicon [facility] echo transthoracic [facility] [address] [place] [address] [place] [address] Echocardiogram Signed Patient: Jacobo Haque SR MR#: [id number] : 1960 Acct:[id number] Age/Sex: 62 / M ADM Date: 01/05/23 Loc: Room: Type: [facility] Attending Dr: JUNIOR Simmons APRN Ordering Provider: Milagro Mejias APRN, CNP Date of Service: 01/05/23/ [facility] echo transthoracic: SHORTNESS OF BREATH, MURMUR Copies [...] Murtaza Matos MD 01/05/23 1600 Normal [facility] Creatinine (Bld) [Mass/Vol]O rdered By: Milagro Mejias on 01-04-2023 Creatinine [Mass/Vol] 0.7 mg/dL 0.6-1.3 [facility] Comment on above: ER/ESD physician is notified/shown all ISTAT results.Critical values may be confirmed by laboratory testing ifdeemed necessary by ER attending doctor. MR head/brain wo/w april MR head/brain wo/w con [facility] [place] [address] MRI Report Signed Patient: GarlandJacobo SR MR#: [id number] : 1960 Acct:[id number] Age/Sex: 62 / M ADM Date: 01/04/23 Loc: MR Room: Type: [facility] Attending Dr: JUNIOR Simmons APRN Copies [...] M.D.01/04/2023 5:27 PM Dictation Location: [place] [address] Transcribed By: [facility] 01/04/231726 Dictated By: Evan Lundberg II, MD 01/04/231720 Signed By: 01/04/231726 Normal [facility] XR elbow LT min 3V*on 2022 XR elbow LT min 3V* [facility] [employer] Other XR elbow LT min 3V* [facility] [address] [place] [employer] Other XR elbow LT min 3V* [address] [facility] [employer] Other XR elbow LT min 3V* [place] [address] [employer] Other XR elbow LT min 3V* XRay Report [employer] Other XR elbow LT min 3V* Signed [employer] Other XR elbow LT min 3V* Patient: Jacobo Haque MR#: [id number] [employer] Other XR elbow LT min 3V* [id number] [employer] Other XR elbow LT min 3V* : 1960 Acct:[id number] [employer] Other XR elbow LT min 3V* Age/Sex: 61 / M ADM Date: 05/12/22 [employer] Other XR elbow LT min 3V* Loc: SOXD Room: Type : [facility] [employer] Other XR elbow LT min 3V* Attending Dr: Milagro PACHECO [employer] Other XR elbow LT min 3V* Copies to: HENRIK BarbaYennifer [employer] Other XR elbow LT min 3V* Ordering Provider: MARISOL Barba [employer] Other XR elbow LT min 3V* Date of Service: 05/12/22 [employer] Other XR elbow LT min 3V* XR/XR elbow LT min 3V*: Left lateral epicondylitis [employer] Other XR elbow LT min 3V* LEFT ELBOW - 4 views [employer] Other XR elbow LT min 3V* CLINICAL HISTORY: Follow-up left lateral epicondylar release [employer] Other XR elbow LT min 3V* COMPARISON: Left elbow 01/06/2022 [employer] Other XR elbow LT min 3V* FINDINGS: [employer] Other XR elbow LT min 3V* No elbow joint effusion. No acute bony process. Joint spaces appear maintained. [employer] Other XR elbow LT min 3V* XR/XR elbow LT min 3V* [employer] Other XR elbow LT min 3V* IMPRESSION: [employer] Other XR elbow LT min 3V* NO ACUTE BONY PROCESS. [employer] Other XR elbow LT min 3V* Impression dictated by: Jose Rob Jr., DBarrettOBarrett05/12/2022 2:54 PM [employer] Other XR elbow LT min 3V* Dictation Location: [facility] [employer] Other XR elbow LT min 3V* Transcribed By: CRISSY 05/12/22 [facility] [employer] Other XR elbow LT min 3V* Dictated By: Jose Rob Jr DO 05/12/22 1453 [employer] Other XR elbow LT min 3V* Signed By: [employer] Other XR elbow LT min 3V* 05/12/22 1454 No [employer] Other Glucose Glucometer (dC) [M ass/Vol]Ordered By: Giovany Krishna on 04-20-2022 Glucose [Mass/Vol] 91 mg/dL [facility] Comment on above: Random Glucose Refer ence Range is dependent on time and content of last meal. Glucose of more than 200 mg/dL in a nonstressed, ambulatory subject supports the diagnosis of Diabetes Mellitus. No Panel InformationOrdered By: Giovany Krishna on 04-20-2022 Bedside Glucose Comment Glu2: cleaned meter [facility] Albumin [Mass/volume] in Ser um or PlasmaOrdered By: Giovany Krishna on 04-07-2022 Albumin [Mass/Vol] 3.9 g/dL 3.2-5.5 [facility] Basophils Auto (Bld) [#/Vol] Ordered By: Giovany Krishna on 04-07-2022 Basophils (Bld) [#/Vol] 0.0 10*3/uL 0.0-0.2 [facility] Basophils/100 WBC Auto (Bld) Ordered By: Giovany Krishna on 04-07-2022 Basophils/100 WBC (Bld) 0.7 % . [facility] Creatinine and Glomerular fi ltration rate.predicted panel (S/P/Bld)Ordered By: Giovany Krishna on 04-07-2022 Creatinine [Mass/Vol] 1.12 mg/dL 0.64-1.27 [facility] Eosinophils Auto (Bld) [#/Vo l]Ordered By: Giovany Krsihna on 04-07-2022 Eosinophils (Bld) [#/Vol] 0.2 10*3/uL 0.0-0.45 [facility] Eosinophils/100 WBC Auto (Bl d)Ordered By: Giovany Krishna on 04-07-2022 Eosinophils/100 WBC (Bld) 3.2 % . [facility] Erythrocyte distribution wid th Auto (RBC) [Ratio]Ordered By: Giovany Krishna on 04-07-2022 Erythrocyte distribution width (RBC) [Ratio] 13.7 % 12.0-14.8 [facility] Estimated glomerular filtrat ion rate (GFR) non- AmericanOrdered By: Giovany Krishna on 04-07-2022 GFR/1.73 sq M.predicted among non-blacks MDRD (S/P/Bld) [Vol rate/Area] > 60 mL/Min [facility] Globulin Calc (S) [Mass/Vol] Ordered By: Giovany Krishna on 04-07-2022 Globulin (S) [Mass/Vol] 2.4 g/dL [facility] Hematocrit Auto (Bld) [Volum e fraction]Ordered By: Giovany Krishna on 04-07-2022 Hematocrit (Bld) [Volume fraction] 45.3 % 38.8-50.0 [facility] Hemoglobin [Mass/volume] in BloodOrdered By: Giovany Krishna on 04-07-2022 Hemoglobin (Bld) [Mass/Vol] 15.0 g/dL 13.0-17.0 [facility] Leukocytes [#/volume] correc debbie for nucleated erythrocytes in Blood by Automated counOrdered By: Giovany Krishna on 04-07-2022 WBC corrected for nucl RBC Auto (Bld) [#/Vol] 6.3 10*3/uL 4.1-10.5 [facility] Lymphocytes Auto (Bld) [#/Vo l]Ordered By: Giovany Krishna on 04-07-2022 Lymphocytes (Bld) [#/Vol] 1.6 10*3/uL 1.00-4.8 [facility] Lymphocytes/100 WBC Auto (Bl d)Ordered By: Giovany Krishna on 04-07-2022 Lymphocytes/100 WBC (Bld) 25.7 % . [facility] MCH Auto (RBC) [Entitic mass ]Ordered By: Giovany Krishna on 04-07-2022 MCH (RBC) [Entitic mass] 28.8 pg 27.5-35.2 [facility] MCHC Auto (RBC) [Mass/Vol]Or dered By: Giovany Krishna on 04-07-2022 MCHC (RBC) [Mass/Vol] 33.2 g/dL 32.5-35.6 [facility] MCV Auto (RBC) [Entitic vol] Ordered By: Giovany Krishna on 04-07-2022 MCV (RBC) [Entitic vol] 86.6 fL 83.5-101 [facility] Monocytes Auto (Bld) [#/Vol] Ordered By: Giovany Krishna on 04-07-2022 Monocytes (Bld) [#/Vol] 0.6 10*3/uL 0.0-0.8 [facility] Monocytes/100 WBC Auto (Bld) Ordered By: Giovany Krishna on 04-07-2022 Monocytes/100 WBC (Bld) 9.1 % . [facility] Neutrophils Auto (Bld) [#/Vo l]Ordered By: Giovany Krishna on 04-07-2022 Neutrophils (Bld) [#/Vol] 3.9 10*3/uL 1.8-7.7 [facility] Neutrophils/100 WBC Auto (Bl d)Ordered By: Giovany Krishna on 04-07-2022 Neutrophils/100 WBC (Bld) 61.3 % . [facility] No Panel InformationOrdered By: Giovany Krishna on 04-07-2022 Estimated GFR () > 60 mL/Min [facility] Comment on above: GFR estimated refere nce range: According to KDOQI guidelines, <60 ml/min/1.73m2 is sufficient to diagnose a patient with chronic kidney disease. Pharmacy Creatinine Clearance (Chem N/A [facility] Nucleated erythrocytes [Pres ence] in Blood by Automated countOrdered By: Giovany Krishna on 04-07-2022 Nucleated RBC Auto Ql (Bld) 0.0 /100{WBC} 0-0.5 [facility] Platelet mean volume Auto (B ld) [Entitic vol]Ordered By: Giovany Krishna on 04-07-2022 Platelet mean volume (Bld) [Entitic vol] 9.9 fL 6.6-10.1 [facility] Platelets Auto (Bld) [#/Vol] Ordered By: Giovany Krishna on 04-07-2022 Platelets (Bld) [#/Vol] 172 10*3/uL 150-450 [facility] Protein [Mass/volume] in Ser um or PlasmaOrdered By: Giovany Krishna on 04-07-2022 Protein [Mass/Vol] 6.3 g/dL 6.1-7.9 [facility] RBC Auto (Bld) [#/Vol]Ordere d By: Giovany Krishna on 04-07-2022 RBC (Bld) [#/Vol] 5.23 10*6/uL 3.90-5.60 [facility] Serum or plasma alanine paul otransferase measurement without P-5'-P (enzymatic activiOrdered By: Giovany Krishna on 04-07-2022 ALT No additional P-5'-P [Catalytic activity/Vol] 16 U/L 10-60 [facility] Serum or plasma albumin/glob ulin mass ratioOrdered By: Giovany Krishna on 04-07-2022 Albumin/Globulin [Mass ratio] 1.6 {ratio} [facility] Serum or plasma alkaline mirtha sphatase measurement (enzymatic activity/volume)Ordered By: Giovany Krishna on 04-07-2022 ALP [Catalytic activity/Vol] 51 U/L 32-92 [facility] Serum or plasma anion gap de terminationOrdered By: Giovany Krishna on 04-07-2022 Anion gap [Moles/Vol] 13.8 mmol/L 6.0-15.0 [facility] Serum or plasma aspartate am inotransferase measurement (enzymatic activity/volume)Ordered By: Giovany Krishna on 04-07-2022 AST [Catalytic activity/Vol] 18 U/L 10-42 [facility] Serum or plasma calcium sneha urement (mass/volume)Ordered By: Giovany Krishna on 04-07-2022 Calcium [Mass/Vol] 8.9 mg/dL 8.2-10.2 [facility] Serum or plasma chloride kourtney surement (moles/volume)Ordered By: Giovany Krishna on 04-07-2022 Chloride [Moles/Vol] 102 mmol/L 95-114 [facility] Serum or plasma glucose sneha urement (mass/volume)Ordered By: Giovany Krishna on 04-07-2022 Glucose [Mass/Vol] 112 mg/dL 70-100 [facility] Comment on above: ADA recommended refe rence rangeRandom Glucose Reference Range is dependent on time and content of last meal. Glucose of more than 200 mg/dL in a nonstressed, ambulatory subject supports the diagnosis of Diabetes Mellitus. Serum or plasma potassium me asurement (moles/volume)Ordered By: Giovany Krishna on 04-07-2022 Potassium [Moles/Vol] 4.0 mmol/L 3.5-5.1 [facility] Serum or plasma sodium measu rement (moles/volume)Ordered By: Giovany Krishna on 04-07-2022 Sodium [Moles/Vol] 139 mmol/L 136-146 [facility] Serum or plasma total biliru bin measurement (mass/volume)Ordered By: Giovany Krishna on 04-07-2022 Bilirubin [Mass/Vol] 0.7 mg/dL 0.3-1.2 [facility] Serum or plasma total carbon dioxide measurement (moles/volume)Ordered By: Giovany Krishna on 04-07-2022 CO2 [Moles/Vol] 27.2 mmol/L 22.0-30.0 [facility] Serum or plasma urea nitroge n measurement (mass/volume)Ordered By: Giovany Krishna on 04-07-2022 Urea nitrogen [Mass/Vol] 16 mg/dL 12-10 [facility] WBC Auto (Bld) [#/Vol]Ordere d By: Giovany Krishna on 04-07-2022 WBC (Bld) [#/Vol] 6.3 10*3/uL 4.1-10.5 [facility] MICROALBUMIN URINEon 022 Albumin, Urine 10.6 ug/mL Normal Not Estab. [facility] Comment on above: Performed By: #### M ALBLC #### [facility] [address] [place] [address] Dr. Steven Camarillo CBC AUTO DIFFon 11-04-2021 BASO # 0.0 103/ul Normal 0.0-0.1 [facility] Comment on above: Performed By: #### C BC #### [facility] [address] [place] [address] Dr. Steven Camarillo Basophils/100 WBC (Bld) 0.5 % Normal 0.2-2.0 [facility] Comment on above: Performed By: #### C BC #### [facility] [address] [place] [address] Dr. Steven Camarillo EO # 0.2 103/ul Normal 0.0-0.7 [facility] Comment on above: Performed By: #### C BC #### [facility] [address] [place] [address] Dr. Steven Camarillo Eosinophils/100 WBC (Bld) 2.9 % Normal 0.9-7.0 [facility] Comment on above: Performed By: #### C BC #### [facility] [address] [place] [address] Dr. Steven Camarillo Erythrocyte distribution width (RBC) [Ratio] 12.7 % Normal 11.0-15.0 [facility] Comment on above: Performed By: #### C BC #### [facility] [address] [place] [address] Dr. Steven Camarillo Hematocrit (Bld) [Volume fraction] 47.3 % Normal 42.0-54.0 [facility] Comment on above: Performed By: #### C BC #### [facility] [address] [place] [address] Dr. Steven Camarillo Hemoglobin (Bld) [Mass/Vol] 15.9 g/dL Normal 14.0-18.0 [facility] Comment on above: Performed By: #### C BC #### [facility] [address] [place] [address] Dr. Steven Camarillo IG # 0.04 10e3/ul Critically high 0.00-0.03 [facility] Comment on above: Performed By: #### C BC #### [facility] [address] [place] [address] Dr. Steven Camarillo IG % 0.5 % Normal 0.0-0.5 [facility] Comment on above: Performed By: #### C BC #### [facility] [address] [place] [address] Dr. Steven Camarillo LYMPH # 1.7 103/ul Normal 1.2-3.8 [facility] Comment on above: Performed By: #### C BC #### [facility] [address] [place] [address] Dr. Steven Camarillo Lymphocytes/100 WBC (Bld) 21.5 % Normal 20.5-60.0 [facility] Comment on above: Performed By: #### C BC #### [facility] [address] [place] [address] Dr. Steven Camarillo MANUAL DIFF REQ NO Normal [facility] Comment on above: Performed By: #### C BC #### [facility] [address] [place] [address] Dr. Steven Camarillo MCH (RBC) [Entitic mass] 29.0 pg Normal 25.9-34.0 [facility] Comment on above: Performed By: #### C BC #### [facility] [address] [place] [address] Dr. Steven Camarillo MCHC (RBC) [Mass/Vol] 33.6 g/dL Normal 29.9-35.2 [facility] Comment on above: Performed By: #### C BC #### [facility] [address] [place] [address] Dr. Steven Camarillo MCV (RBC) [Entitic vol] 86.2 fL Normal 80.0-94.0 [facility] Comment on above: Performed By: #### C BC #### [facility] [address] [place] [address] Dr. Steven Camarillo MONO # 0.6 103/ul Normal 0.3-0.8 [facility] Comment on above: Performed By: #### C BC #### [facility] [address] [place] [address] Dr. Steven Camarillo Monocytes/100 WBC (Bld) 8.0 % Normal 1.7-12.0 [facility] Comment on above: Performed By: #### C BC #### [facility] [address] [place] [address] Dr. Steven Camarillo NEUT # 5.4 103/ul Normal 1.4-6.5 [facility] Comment on above: Performed By: #### C BC #### [facility] [address] [place] [address] Dr. Steven Camarillo Neutrophils/100 WBC (Bld) 66.6 % Normal 43.0-75.0 [facility] Comment on above: Performed By: #### C BC #### [facility] [address] [place] [address] Dr. Steven Camarillo Platelet mean volume (Bld) [Entitic vol] 10.9 fL Normal 9.5-13.5 [facility] Comment on above: Performed By: #### C BC #### [facility] [address] [place] [address] Dr. Steven Camarillo PLT 227 103/ul Normal 150-450 [facility] Comment on above: Performed By: #### C BC #### [facility] [address] [place] [address] Dr. Steven Camarillo RBC 5.49 106/ul Normal 4.70-6.10 [facility] Comment on above: Performed By: #### C BC #### [facility] [address] [place] [address] Dr. Steven Camarillo WBC 8.1 103/ul Normal 4.0-11.0 [facility] Comment on above: Performed By: #### C BC #### [facility] [address] [place] [address] Dr. Steven Camarillo GLYCOHEMOGLOBIN A1Con 2021 ADA RECOMMENDATION SEE BELOW Normal [facility] Comment on above: Result Comment: ADA RECOMMENDED LIMIT 4.0 - 6.0 ADA THERAPEUTIC TARGET < 7.0 ACTION SUGGESTED > 7.0 Performed By: #### A 1C #### [facility] [address] [place] [address] Dr. Steven Camarillo Glucose [Mass/Vol] 108 mg/dL Normal [facility] Comment on above: Performed By: #### A 1C #### [facility] [address] [place] [address] Dr. Steven Camarillo HbA1c (Bld) [Mass fraction] 5.4 % Normal 4.5-6.2 [facility] Comment on above: Performed By: #### A 1C #### [facility] [address] [place] [address] Dr. Steven Camarillo PROF 14(COMP METB)on 022 Albumin [Mass/Vol] 4.0 g/dL Normal 3.4-5.0 [facility] Comment on above: Performed By: #### C MP #### [facility] [address] [place] [address] Dr. Steven Camarillo Albumin/Globulin [Mass ratio] 1.1 {ratio} Normal [facility] Comment on above: Performed By: #### C MP #### [facility] [address] [place] [address] [address] Steven Camarillo ALP [Catalytic activity/Vol] 76 U/L Normal 46-116 [facility] Comment on above: Performed By: #### C MP #### [facility] [address] [place] [address] Dr. Steven Camarillo ALT [Catalytic activity/Vol] 18 U/L Normal 16-63 [facility] Comment on above: Performed By: #### C MP #### [facility] [address] [place] [address] [address] Steven Camarillo Anion gap [Moles/Vol] 10.7 mmol/L Normal Th e [facility] Comment on above: Performed By: #### C MP #### [facility] [address] [place] [address] Dr. Steven Camarillo AST [Catalytic activity/Vol] 13 U/L Critically low 15-37 [facility] Comment on above: Performed By: #### C MP #### [facility] [address] [place] [address] Dr. Steven Camarillo Bilirubin [Mass/Vol] 0.4 mg/dL Normal 0.2-1.0 [facility] Comment on above: Performed By: #### C MP #### [facility] [address] [place] [address] Dr. Steven Camarillo Calcium [Mass/Vol] 9.2 mg/dL Normal 8.5-10.1 [facility] Comment on above: Performed By: #### C MP #### [facility] [address] [place] [address] Dr. Steven Camarillo Chloride [Moles/Vol] 102 mmol/L Normal 98-107 [facility] Comment on above: Performed By: #### C MP #### [facility] [address] [place] [address] Dr. Steven Camarillo CO2 [Moles/Vol] 29.6 mmol/L Normal 21.0-32.0 [facility] Comment on above: Performed By: #### C MP #### [facility] [address] [place] [address] Dr. Steven Camarillo Creatinine [Mass/Vol] 1.14 mg/dL Normal 0.70-1.30 [facility] Comment on above: Performed By: #### C MP #### [facility] [address] [place] [address] [address] Steven Camarillo EGFR-AF CYMRAES >60 Normal >=60 [facility] Comment on above: Performed By: #### C MP #### [facility] [address] [place] [address] [address] Steven Camarillo EGFR-NON AF CYMRAES >60 Normal >=60 [facility] Comment on above: Performed By: #### C MP #### [facility] [address] [address] [address] Steven Camarillo Globulin (S) [Mass/Vol] 3.7 g/dL Normal [facility] Comment on above: Performed By: #### C MP #### [facility] [address] [address] [address] Steven Camarillo Glucose [Mass/Vol] 114 mg/dL Critically high 74-106 [facility] Comment on above: Performed By: #### C MP #### [facility] [address] [address] [address] Steven Camarillo Potassium [Moles/Vol] 4.3 mmol/L Normal 3.5-5.1 [facility] Comment on above: Performed By: #### C MP #### [facility] [address] [address] [address] Steven Camarillo Protein [Mass/Vol] 7.7 g/dL Normal 6.4-8.2 [facility] Comment on above: Performed By: #### C MP #### [facility] [address] [address] [address] Steven Camarillo Sodium [Moles/Vol] 138 mmol/L Normal 136-145 [facility] Comment on above: Performed By: #### C MP #### [facility] [address] [address] [address] Steven Camarillo Urea nitrogen [Mass/Vol] 17.0 mg/dL Normal 7.0-18.0 [facility] Comment on above: Performed By: #### C MP #### [facility] [address] [address] [address] Steven Camarillo Urea nitrogen/Creatinine [Mass ratio] 14.9 mg/mg Normal [facility] Comment on above: Performed By: #### C MP #### [facility] [address] [address] [address] Steven Camarillo Vital Signs Date Time Vital Sign Value Performing Clinician Facility 05-29-2023 11:29-0400 Body height 172.72 cm 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Cherie Mejias Work Phone: [facility] 05-29-2023 11:29-0400 Body mass index (BMI) [Ratio] 31.3 kg/m2 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Cherie Mejias Work Phone: [facility] 05-29-2023 11:29-0400 Body weight 93.44 kg MIGUEL Mejias Work Phone: [facility] 05-29-2023 11:29-0400 Diastolic blood pressure 77 mm[Hg] 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Cherie Mejias Work Phone: [facility] 05-29-2023 11:29-0400 Heart rate 80 /min MIGUEL Mejias Work Phone: [facility] 05-29-2023 11:29-0400 SaO2% (BldA) [Mass fraction] 97 % 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Cherie Mejias Work Phone: [facility] 05-29-2023 11:29-0400 Systolic blood pressure 122 mm[Hg] MIGUEL Mejias Work Phone: [facility] 04-06-2023 10:00-0500 Body height 172.72 cm Milagro Mejias Other [facility] 04-06-2023 10:00-0500 Body mass index (BMI) [Ratio] 30.56 kg/m2 Milagro Mejias Other [employer] [facility] [email or web address] Other 04-06-2023 10:00-0500 Body weight 91.17 kg Milagro Willr Other [facility] 04-06-2023 10:00-0500 Diastolic blood pressure 74 mm[Hg] Milagro Jakubacher Other [facility] 04-06-2023 10:00-0500 SaO2% (BldA) [Mass fraction] 95 % Milagro Jakubacher Other [employer] Other 04-06-2023 10:00-0500 Systolic blood pressure 124 mm[Hg] Milagro Jakubacher Other [facility] 12-23-2022 09:00-0400 Body height 172.72 cm Milagro Magalie Other [employer] Other 12-23-2022 09:00-0400 Body mass index (BMI) [Ratio] 29.98 kg/m2 Milagro Magalie Other [employer] Other 12-23-2022 09:00-0400 Body weight 89.45 kg Milagro Willr Other [employer] Other 12-23-2022 09:00-0400 Diastolic blood pressure 60 mm[Hg] Milagro Rose Marierbacher Other [employer] Other 12-23-2022 09:00-0400 SaO2% (BldA) [Mass fraction] 96 % Milagro Jakubacher Other [employer] Other 12-23-2022 09:00-0400 Systolic blood pressure 120 mm[Hg] Milagro Magalie Other [employer] Other 10-15-2022 10:25-0400 Body height 172.72 cm Tracy Wong Other [employer] Other 10-15-2022 10:25-0400 Body mass index (BMI) [Ratio] 31.9 kg/m2 Tracy Wong Other [employer] Other 10-15-2022 10:25-0400 Body temperature 99.1 [degF] Tracy Wong Other [employer] Other 10-15-2022 10:25-0400 Body weight 95.17 kg Tracy Wong Other [employer] Other 10-15-2022 10:25-0400 Diastolic blood pressure 73 mm[Hg] Tracy Wong Other [employer] Other 10-15-2022 10:25-0400 Respiratory rate 18 /min Tracy Wong Other [employer] Other 10-15-2022 10:25-0400 SaO2% (BldA) [Mass fraction] 95 % Tracy Wong Other [employer] Other 10-15-2022 10:25-0400 Systolic blood pressure 143 mm[Hg] Tracy Wong Other [employer] Other 04-20-2022 15:20-0500 Diastolic blood pressure 65 mm[Hg] DO [employer] Work Phone: [facility] 04-20-2022 15:20-0500 Heart rate 50 /min DO [employer] Phone: [facility] 04-20-2022 15:20-0500 Respiratory rate 16 /min DO [employer] Work Phone: [facility] 04-20-2022 15:20-0500 SaO2% (BldA) [Mass fraction] 98 % DO Len Truzip Work Phone: [facility] 04-20-2022 15:20-0500 Systolic blood pressure 112 mm[Hg] DO Len Truzip Work Phone: [facility] 04-20-2022 13:55-0500 Inhaled oxygen flow rate 5 L/min DO [employer] Work Phone: [facility] 04-20-2022 12:34-0500 Body height 172.72 cm DO [employer] Work Phone: [facility] 04-20-2022 12:34-0500 Body mass index (BMI) [Ratio] 31 kg/m2 DO [employer] Work Phone: [facility] 04-20-2022 12:34-0500 Body weight 92.7 kg DO [employer] Work Phone: [facility] 04-20-2022 11:59-0500 Body temperature 98.6 [degF] DO [employer] Work Phone: [facility] 03-29-2022 09:30-0500 Body height 172.72 cm Giovany Krishna Other [employer] Other 03-29-2022 09:30-0500 Body mass index (BMI) [Ratio] 30.41 kg/m2 Giovany Olexa Other [employer] Other 03-29-2022 09:30-0500 Body weight 90.72 kg Giovany Olexa Other [employer] Other 01-06-2022 09:00-0400 Body height 172.72 cm Giovany Krishna Other [employer] Other 01-06-2022 09:00-0400 Body mass index (BMI) [Ratio] 31.93 kg/m2 Giovany Krishna Other [employer] Other 01-06-2022 09:00-0400 Body weight 95.26 kg Giovany Krishna Other [employer] Other Encounters Encounter Date Encounter Type Care Provider Facility Start: 10-30-2023 End: 10-30-2023 Patient encounter procedure 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Cherie Mejias Work Phone: [facility] Start: 10-30-2023 End: 10-30-2023 ambulatory 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Cherie Mejias Work Phone: [facility] Work Phone: Start: 07-03-2023 End: 07-03-2023 Patient encounter procedure 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 Milagro Mejias Work Phone: [facility] Start: 07-03-2023 End: 07-03-2023 ambulatory 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Cherie Mejias Work Phone: [facility] Work Phone: Start: 05-29-2023 End: 05-29-2023 Patient encounter procedure 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 Milagro Mejias Work Phone: [facility] Work Phone: Start: 04-06-2023 End: 04-06-2023 ambulatory Milagro Mejias Other [employer] [facility] [email or web address] Other Start: 04-06-2023 Office outpatient vi sit 15 minutes Milagro Mejias [facility] Start: 04-06-2023 End: 04-06-2023 Patient encounter procedure 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 Work Phone: [facility]- Start: 02-14-2023 End: 02-14-2023 ambulatory Milagro Magalie Other [employer] Other Start: 02-14-2023 Telephone encounter Milagro Trotterashleeadán her [facility] Start: 01-06-2023 End: 01-06-2023 ambulatory Milagro Magalie Other [employer] Other Start: 01-06-2023 Telephone encounter Milagro Shepard her [facility] Start: 01-05-2023 Telephone encounter Milagro Shepard her [facility] Start: 01-05-2023 End: 01-05-2023 Patient encounter procedure 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 Work Phone: [facility] Work Phone: Start: 01-05-2023 End: 01-05-2023 ambulatory 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 Work Phone: [facility] Work Phone: Start: 01-04-2023 End: 01-04-2023 Patient encounter procedure 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 Work Phone: [facility] [place] Work Phone: Start: 01-04-2023 End: 01-04-2023 ambulatory Milagro Mejias Facility:[facility] Start: 2022 End: 2022 ambulatory Milagro Mejias Other [employer] Other Start: 2022 Telephone encounter Milagro Shepard her [facility] Start: 12-23-2022 End: 12-23-2022 ambulatory Milagro Willr Other [employer] Other Start: 12-23-2022 Office outpatient ne w 30 minutes Milagro Mejias [facility] Start: 10-25-2022 End: 10-25-2022 ambulatory Giovany Olexa Other [employer] Other Start: 10-25-2022 Office outpatient vi sit 15 minutes Giovany Krishna [facility] Start: 10-15-2022 End: 10-15-2022 ambulatory Tracy Wong Other [employer] Other Start: 10-15-2022 Office outpatient vi sit 15 minutes Tracy Wong [facility] Start: 07-26-2022 End: 07-26-2022 ambulatory Milagro Ann Other [employer] Other Start: 07-26-2022 Office outpatient vi sit 15 minutes Milagro Ann [facility] Start: 05-12-2022 Postop follow up vis it related to original px Milagro Ann [facility] Start: 05-12-2022 Telephone encounter Giovany Krishna [facility] Start: 05-12-2022 End: 05-12-2022 ambulatory DO Len House Work Phone: [facility] Work Phone: Start: 05-12-2022 End: 05-12-2022 Patient encounter procedure DO Len House Work Phone: [facility] Start: 04-28-2022 End: 04-28-2022 ambulatory Giovany Everettxa Other [employer] Other Start: 04-28-2022 Postop follow up vis it related to original px Giovany Everettxa [facility] Start: 04-20-2022 End: 04-20-2022 Admission to same day surgery center DO Len House Work Phone: [facility] [place] Start: 04-20-2022 End: 04-20-2022 ambulatory DO Len House Work Phone: [facility] Work Phone: Start: 04-18-2022 End: 04-18-2022 ambulatory Giovany Olexa Other [employer] Other Start: 04-18-2022 Telephone encounter Giovany Olexa [facility] Start: 04-07-2022 End: 04-07-2022 ambulatory DO Len House Work Phone: [facility] Work Phone: Start: 04-07-2022 End: 04-07-2022 Patient encounter procedure DO Len House Work Phone: [facility] Work Phone: Start: 03-29-2022 End: 03-29-2022 ambulatory Giovany Olexa Other [employer] Other Start: 03-29-2022 Encounter for other preprocedural examination Giovany Olexa [facility] Start: 03-29-2022 Office outpatient vi sit 25 minutes Giovany Olexa [facility] Start: 03-05-2022 End: 03-05-2022 Patient encounter procedure DO Len House Work Phone: [facility] [place] Work Phone: Start: 01-13-2022 End: 01-13-2022 ambulatory Giovany Olexa Other [employer] Other Start: 01-13-2022 Telephone encounter Giovany Olexa [facility] Start: 01-06-2022 Office outpatient ne w 30 minutes Giovany Olexa [facility] Start: 01-06-2022 End: 01-06-2022 ambulatory Giovany Olexa Other [employer] Other Start: 01-06-2022 End: 01-06-2022 Patient encounter procedure MD Giovany Krishna Work Phone: [facility] Start: 11-04-2021 End: 11-05-[address] LEN DELGADO Facility:[facility] Procedures Date Procedure Procedure Detail Performing Clinician Start: 01-04-2023 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 Steven Camarillo Plan of Treatment Date Care Activity Detail Author Start: 04-20-2022 [facility] Start: 04-20-2022 [facility] Glucose measurement estimated from glycated hemoglobin [facility] Payers Date Payer Category Payer Private Health Insurance [id number] 2022 Self-pay 1960 Unknown [id number] 1957 Unknown [id number] Private Health Insurance [id number] Unknown [employer] [id number] Unknown [id number] Unknown [id number] Unknown [id number] Unknown [id number] Social History Date Type Detail Facility Unknown if ever smoked [facility] [email or web address] Other Sex Assigned At Sex Assigned At Bir th [employer] [facility] [email or web address] Other Start: 1960 Sex Assigned At Male F [facility] Start: 04-07-2022 End: 04-20-2022 Tobacco smoking status NHIS Ex-smoker (finding) [facility] Goals Date Patient Goal Desired Activity [...] plan. Mar, COPD exacerbation (ICD-10 - J44.1) [email or web address] Other 10-06-2023 Evaluation note* Encounter Date Diagnosis [...] exam-- echo ordered. Will call with resuts. [employer] Other 08-08-2023 Evaluation note* Encounter Date Diagnosis Assessment Notes Treatment Notes Treatment Clinical Notes Oct, Left lateral epicondylitis (ICD-10 - M77.12) Oct, Other specified postprocedural states (ICD-10 - Z98.890) Patient is progressing well from surgery. 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 Activity as tolerated. Call with questions/concerns. [employer] Other 07-29-2023 Evaluation note* Encounter Date Diagnosis Assessment Notes Treatment Notes Treatment Clinical Notes Sep, Acute lower respiratory infection (ICD-10 - J22) Discussed with patient concern for secondary pneumonia. Will cover with azithromycin. Finish entire course. Fluids and rest encouraged. Mucinex DM encouraged [id number]. May continue Zyrtec. Patient is encouraged to follow-up with PCP for recheck in the next 4 to 6 days. ER if any significantly worsening symptoms, fever, severe shortness of breath. Offered COVID testing in office, patient declines. [employer] Other 05-09-2023 Evaluation note* Encounter Date Diagnosis [...] in the office today and providing supervision. [employer] Other 02-23-2023 Evaluation note* Encounter Date Diagnosis Assessment Notes Treatment Notes Treatment Clinical Notes Apr, Left lateral epicondylitis (ICD-10 - M77.12) Apr, Other specified postprocedural states (ICD-10 - Z98.890) A prescription for anti-inflammatorie s was provided with instructions on use. Rx Diclofenac 75mg twice daily. Patient also instructed on alternating the use of heat and ice [employer] Other 02-09-2023 Evaluation note* Encounter Date Diagnosis [...] had no futher questions at this time. [employer] Other 02-01-2023 History general Narrative - Reported* Type Description Date Medical History diabetes mallitus Surgical History gallbladder removal- [facility] Surgical History right knee cyst removal Surgical History broken nose Surgical History Left Elbow Lateral Epicondylar Release 04/20/2022 Hospitalization History see above Hospitalization History pneumonia [employer] Other 01-30-2023 Evaluation note* Encounter Date Diagnosis Assessment Notes Treatment Notes Treatment Clinical Notes Mar, Other specified postprocedural states (ICD-10 - Z98.890) [employer] Other 01-10-2023 Evaluation note* Encounter Date Diagnosis [...] proceed. Mar, Pre-op exam (ICD-10 - Z01.818) [employer] Other 10-20-2022 Evaluation note* Encounter Date Diagnosis [...] upper extremity/hand specialist for further treatment options. [employer] Other Evaluation noteNo assessment information available [facility] [employer] Work Phone: Evaluation noteNo InformationNort [employer] Other Evaluation note* Diagnosis Onset Date Resolution Status Bronchitis acute [facility] Work Phone: History general Narrative - Reported* Type Description Date Medical History diabetes mallitus Surgical History gallbladder revmoval Surgical History right knee cyst removal Surgical History broken nose Hospitalization History see above Hospitalization History pneumonia [employer] Other Hisdpus general Narrative - Reported* Type Description Date Medical History diabetes mallitus Medical History GERD Surgical History gallbladder removal- [facility] Surgical History right knee cyst removal Surgical History broken nose Surgical History Left Elbow Lateral Epicondylar Release 04/20/2022 Hospitalization History see above Hospitalization History pneumonia [employer] Other Histzhr general Narrative - Reported* Type Description Date Medical History diabetes mallitus Medical History GERD Medical History COPD/Asthma Medical History hyperthyroid Surgical History gallbladder removal- [facility] Surgical History right knee cyst removal Surgical History broken nose Surgical History Left Elbow Lateral Epicondylar Release 04/20/2022 Hospitalization History see above Hospitalization History pneumonia [employer] Other Hospital Discharge instructions Additional Instructions The [...] be seen in one week. 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 [employer]ISION MANAGER-C Primary Care Provider Active Team Status: Inactive Member Role Status Dates Milagro Mejias APRN DIVISION MANAGER-C Primary Care Provider, Attending Provider Active Team Status: Inactive Member Role Status Dates Milagro Mejias APRN DIVISION MANAGER-C Attending Provider Act clary Start: April 06, 2023 End: April 06, 2023 Team Status: Inactive Member Role Status Dates Milagro Mejias APRN DIVISION MANAGER-C Primary Care Provider, Attending Provider Active Start: May 29, 2023 End: May 29, 2023 Team Status: Inactive Member Role Status Dates Milagro Mejias APRN DIVISION MANAGER-C Primary Care Provider, Attending Provider Active Start: July 03, 2023 End: July 03, 2023 Kourtney Woods MD Other Provider Active Start: July 03, 2023 End: July 03, 2023 Team Status: Inactive Member Role Status Dates Milagro Mejias APRN DIVISION MANAGER-C Primary Care Provider Active Start: October 30, [...] BE BASED ON THE PRIMARY CLINICAL RECORDS. [facility] [employer] provides no warranty or guarantee of the accuracy or completeness of information in this document.
[2024-04-10 11:02] LABS: Internal Control Within Normal Limits; Respiratory Syncytial Virus Not Detected (NOT DETECTE)
[2024-04-10 11:04] LABS: Influenza Virus A Antigen Negative; Influenza Virus B Antigen Negative; Internal Control Within Normal Limits; SARS-CoV-2 Ag NEGATIVE (NEGATIVE)
== END 2024-04-10 10:32 | disposition home or self-care (01) ==
PROVIDERS: PCP Nurse Practitioner Family; Visit Provider Internal Medicine
DX: J20.9 Acute bronchitis, unspecified (principal)
CPT/HCPCS: 87420; 87804; 87811

== ENCOUNTER 2024-04-22 15:47 | Outpatient (OUT) | payer OTHER, SELFPAY ==
--- NOTE | 2024-04-22 15:49 | CT_ITS ---
[address] [address] Patient Name: ALEX PADILLA MRN: [id number] date: 1960 Sex: M Assigned Patient Location: CT Current Patient Location: LAB Accession/Order Number: [id number] Exam Date: 04/22/2024 15:53 Report Date: 04/23/2024 11:42 At the request of: ADALGISA RASCON Procedure: CT chest wo con EXAMINATION: CT chest wo con HISTORY: Multiple Pulmonary Nodules ; follow-up COMPARISON: CT Lung Screening 12/25/2023, 12/22/2022 TECHNIQUE: Axial, Coronal, and Sagittal images were created without the administration of IV contrast material. Dose reduction techniques were achieved by using automated exposure control and/or adjustment of mA and/or kV according to patient size and/or use of iterative reconstruction technique. FINDINGS: LUNGS: A few tiny stable nodules scattered within the lungs, largest is 6 mm. Clearing of the majority the previously seen opacities and long segment curvilinear band/density seen within posterior right lung base on prior study. No new nodules or acute infiltrates. PLEURA: No mass, effusion, or pneumothorax. VASCULATURE: No abnormality. MARIA ISABEL: No mass or pathologic adenopathy. MEDIASTINUM: No mass or pathologic adenopathy. CARDIAC: No enlargement, pericardial thickening, or pericardial effusion. Coronary Artery calcifications: Coronary calcifications are absent. AORTA: No aneurysm or dissection. CHEST WALL: No mass or axillary adenopathy BONES: No bone lesion or fracture. LIMITED ABDOMEN: No suspicious findings. Limited images of the upper abdomen. OTHER: Negative. CT/CT chest wo con IMPRESSION: 1. Lung-RADS 2- Benign Appearance or Behavior. Nodules with a very low likelihood of becoming a clinically active cancer due to size or lack of growth. Follow-up CT Chest in 1 year. Electronically authenticated by: CHELSY ALEJO Date: 04/23/2024 11:42
--- OUTSIDE RECORDS SUMMARY | 2024-04-22 16:06 | XMS_ITS | CCD ---
Author Organization [facility] Team Providers Care Dairy Hand Name Role Phone HOUSE, DR WILKINS Attending Unavailable HOUSE, DR WILKINS Consulting Unavailable HOUSE, DR WILKINS Primary Care Unavailable DANNY, DR WILKINS Admitting Unavailable Giovany Krishna Unavailable MD Giovany Krishna Attending Provider [phone] DO Len Delgado Primary Care Provider [phone] DO Len Delgado Attending Provider [phone] MD Giovany Krishna Attending Provider [phone] JUNIOR Ann Attending Provider [phone] Milagro Ann Unavailable Tracy Wong Unavailable Milagro Mejias Unavailable MIGUEL Mejias Primary Care Provider MIGUEL Mejias Attending Provider [phone] MIGUEL Mejias Primary Care Provider MIGUEL Mejias Attending Provider [phone] MD Kourtney Woods Other Provider MIGUEL Mejias Primary Care Provider MD Kourtney Woods Attending Provider [phone] Milagro Mejias Attending Unavailable Milagro Mejias [...] every 4 hrs for 5 days ENZO: [id number] Mar, Active [id number] actuat albuterol 0.09 mg/actuat metered dose [...] ALT [Catalytic activity/Vol] 22 U/L Normal 7-52 [facility] Comment on above: Order Comment: NONFA STING. JKW Performed By: #### T 4F, HEPATIC, T3F, TSH3 #### [facility] [address] Albumin [Mass/volume] in Ser um or Plasma by Bromocresol green (BCG) dye binding methoOrdered By: Kourtney Woods on 10-30-2023 Albumin BCG dye [Mass/Vol] 4.5 g/dL 3.5-5.7 [facility] Alkaline phosphatase [Enzyma tic activity/volume] in Serum or PlasmaOrdered By: Kourtney Woods on 10-30-2023 ALP [Catalytic activity/Vol] 78 U/L Normal 34-104 [facility] Comment on above: Order Comment: NONFA STING. JKW Performed By: #### T 4F, HEPATIC, T3F, TSH3 #### [facility] [address] Aspartate aminotransferase [ Enzymatic activity/volume] in Serum or PlasmaOrdered By: Kourtney Woods on 10-30-2023 AST [Catalytic activity/Vol] 24 U/L Normal 13-39 [facility] Comment on above: Order Comment: NONFA STING. JKW Performed By: #### T 4F, HEPATIC, T3F, TSH3 #### [facility] [address] Bilirubin.direct [Mass/volum e] in Serum or PlasmaOrdered By: Kourtney Woods on 10-30-2023 Bilirubin.direct [Mass/Vol] 0.10 mg/dL 0.03-0.18 [facility] Bilirubin.total [Mass/volume ] in Serum or PlasmaOrdered By: Kourtney Woods on 10-30-2023 Bilirubin [Mass/Vol] 0.6 mg/dL Normal 0.3-1.0 [facility] Comment on above: Order Comment: NONFA STING. JKW Performed By: #### T 4F, HEPATIC, T3F, TSH3 #### [facility] [address] Hepatic Panelon 10-30-2023 Albumin [Mass/Vol] 4.5 g/dL Normal 3.5-5.7 [facility] Comment on above: Order Comment: NONFA STING. JKW Performed By: #### T 4F, HEPATIC, T3F, TSH3 #### [facility] [address] Bilirubin,Indirect 0.5 mg/dL Normal [facility] Comment on above: Order Comment: NONFA STING. JKW Performed By: #### T 4F, HEPATIC, T3F, TSH3 #### [facility] [address] Bilirubin.indirect [Mass/Vol] 0.10 mg/dL Normal 0.03-0.18 [facility] Comment on above: Order Comment: NONFA STING. JKW Performed By: #### T 4F, HEPATIC, T3F, TSH3 #### [address] Protein [Mass/volume] in Ser um or PlasmaOrdered By: Kourtney Woods on 10-30-2023 Protein [Mass/Vol] 6.9 g/dL Normal 6.4-8.9 [facility] Comment on above: Order Comment: NONFA STING. JKW Performed By: #### T 4F, HEPATIC, T3F, TSH3 #### [facility] [address] [place] [id number] [facility] Serum globulin measurement b y calculation (mass/volume)Ordered By: Kourtney Woods on 10-30-2023 Globulin (S) [Mass/Vol] 2.4 g/dL Normal [facility] Comment on above: Order Comment: NONFA STING. JKW Performed By: #### T 4F, HEPATIC, T3F, TSH3 #### [facility] [address] Serum or plasma albumin/glob ulin mass ratioOrdered By: Kourtney Woods on 10-30-2023 Albumin/Globulin [Mass ratio] 1.9 {ratio} Normal [facility] Comment on above: Order Comment: NONFA STING. JKW Performed By: #### T 4F, HEPATIC, T3F, TSH3 #### [facility] [address] Serum or plasma non-glucuron idated bilirubin measurement (mass/volume)Ordered By: Kourtney Woods on 10-30-2023 Bilirubin.indirect [Mass/Vol] 0.5 mg/dL [facility] Thyrotropin [Units/volume] i n Serum or PlasmaOrdered By: Kourtney Woods on 10-30-2023 TSH Qn 2.62 m[IU]/L Normal 0.45-5.33 [facility] Comment on above: Order Comment: Reaso n for Exam Screening for lipid disorders Reason for Exam Screening for metabolic disorder Result Comment: PERF ORMED BY: [address] [place] [address] PATHOLOGIST CONSUMER EXPERIENCE CONSULTANT JOVITA WATSON M.D. Performed By: #### A 1C WT eA, CMP, LIPID, CBC #### [facility] [address] [place] [address] Thyroxine (T4) free [Mass/vo lume] in Serum or PlasmaOrdered By: Kourtney Woods on 10-30-2023 Free T4 [Mass/Vol] 0.65 ng/dL Normal 0.61-1.12 [facility] Comment on above: Order Comment: Reaso n for Exam Screening for lipid disorders Reason for Exam Screening for metabolic disorder Performed By: #### A 1C WTH eA, CMP, LIPID, CBC #### [facility] [address] [place] [address] [place] Triiodothyronine (T3) Freeon 10-30-2023 Triiodothyronine (T3) Free 3.22 pg/mL Normal 2.50-3.90 [facility] Comment on above: Order Comment: Reaso n for Exam Screening for lipid disorders Reason for Exam Screening for metabolic disorder Result Comment: PERF ORMED BY: [place] [address] PATHOLOGIST CONSUMER EXPERIENCE CONSULTANT JOVITA WATSON M.D. Performed By: #### A 1C WTH eA, CMP, LIPID, CBC #### [facility] [address] Triiodothyronine (T3) Free [ Mass/volume] in Serum or PlasmaOrdered By: Kourtney Woods on 10-30-2023 Free T3 [Mass/Vol] 3.22 pg/mL 2.50-3.90 [facility] A1C with Estimated Average [facility] 07-03-2023 Glucose [Mass/Vol] 120 mg/dL Normal [facility] Comment on above: Order Comment: Reaso n for Exam Impaired fasting glucose Result Comment: PERF ORMED BY: [place] [address] PATHOLOGIST CONSUMER EXPERIENCE CONSULTANT JOVITA WATSON M.D. Performed By: #### A 1C WTH eA, CMP, LIPID, CBC #### [address] HbA1c (Bld) [Mass fraction] 5.8 % High 4.3-5.6 [facility] Comment on above: Order Comment: Reaso n for Exam Impaired fasting glucose Result Comment: Incr eased risk for diabetes: 5.7 - 6.4 diabetes: >6.4 glycemic control for adults with diabetes: <7.0 Performed By: #### A 1C WTH eA, CMP, LIPID, CBC #### [place] [address] [place] Alanine aminotransferase [En zymatic activity/volume] in Serum or PlasmaOrdered By: Milagro Mejias on 07-03-2023 ALT [Catalytic activity/Vol] 19 U/L Normal 7-52 [facility] Comment on above: Order Comment: Reaso n for Exam Screening for lipid disorders Reason for Exam Screening for metabolic disorder Performed By: #### A 1C WTH eA, CMP, LIPID, CBC #### [facility] [address] Albumin [Mass/volume] in Ser um or Plasma by Bromocresol green (BCG) dye binding methoOrdered By: Milagro Mejias on 07-03-2023 Albumin BCG dye [Mass/Vol] 4.5 g/dL 3.5-5.7 [facility] Alkaline phosphatase [Enzyma tic activity/volume] in Serum or PlasmaOrdered By: Milagro Mejias on 07-03-2023 ALP [Catalytic activity/Vol] 84 U/L Normal 34-104 [facility] Comment on above: Order Comment: Reaso n for Exam Screening for lipid disorders Reason for Exam Screening for metabolic disorder Performed By: #### A 1C WT eA, CMP, LIPID, CBC #### [facility] [address] Aspartate aminotransferase [ Enzymatic activity/volume] in Serum or PlasmaOrdered By: Milagro Mejias on 07-03-2023 AST [Catalytic activity/Vol] 24 U/L Normal 13-39 [facility] Comment on above: Order Comment: Reaso n for Exam Screening for lipid disorders Reason for Exam Screening for metabolic disorder Performed By: #### A 1C WTH eA, CMP, LIPID, CBC #### [facility] [address] Automated basophil %Ordered By: Milagro Mejias on 07-03-2023 Basophils/100 WBC (Bld) 0.5 % Normal . F [facility] Comment on above: Order Comment: Reaso n for Exam Screening for deficiency anemia Performed By: #### A 1C WTH eA, CMP, LIPID, CBC #### [facility] [address] Automated basophil countOrde red By: Milagro Mejias on 07-03-2023 Basophils (Bld) [#/Vol] 0.0 10*3/uL Normal 0.0-0.2 [facility] Comment on above: Order Comment: Reaso n for Exam Screening for deficiency anemia Result Comment: PERF ORMED BY: [place] [address] PATHOLOGIST CONSUMER EXPERIENCE CONSULTANT JOVITA WATSON M.D. Performed By: #### A 1C WTH eA, CMP, LIPID, CBC #### [facility] [address] Automated blood monocyte cou ntOrdered By: Milagro Mejias on 07-03-2023 Monocytes (Bld) [#/Vol] 0.6 10*3/uL Normal 0.0-0.8 [facility] Comment on above: Order Comment: Reaso n for Exam Screening for deficiency anemia Performed By: #### A 1C WTH eA, CMP, LIPID, CBC #### [address] Automated eosinophil %Ordere d By: Milagro Mejias on 07-03-2023 Eosinophils/100 WBC (Bld) 1.6 % Normal . [facility] Comment on above: Order Comment: Reaso n for Exam Screening for deficiency anemia Performed By: #### A 1C WTH eA, CMP, LIPID, CBC #### [address] Automated eosinophil countOr dered By: Milagro Mejias on 07-03-2023 Eosinophils (Bld) [#/Vol] 0.1 10*3/uL Normal 0.0-0.45 [facility] Comment on above: Order Comment: Reaso n for Exam Screening for deficiency anemia Performed By: #### A 1C WTH eA, CMP, LIPID, CBC #### [address] Automated monocyte %Ordered By: Milagro Mejias on 07-03-2023 Monocytes/100 WBC (Bld) 6.9 % Normal . [facility] Comment on above: Order Comment: Reaso n for Exam Screening for deficiency anemia Performed By: #### A 1C WTH eA, CMP, LIPID, CBC #### [address] Automated neutrophil %Ordere d By: Milagro Mejias on 07-03-2023 Neutrophils/100 WBC (Bld) 74.2 % Normal . [facility] Comment on above: Order Comment: Reaso n for Exam Screening for deficiency anemia Performed By: #### A 1C WTH eA, CMP, LIPID, CBC #### [facility] [address] [place] [id number] [place] Bilirubin.total [Mass/volume ] in Serum or PlasmaOrdered By: Milagro Mejias on 07-03-2023 Bilirubin [Mass/Vol] 0.5 mg/dL Normal 0.3-1.0 [facility] Comment on above: Order Comment: Reaso n for Exam Screening for lipid disorders Reason for Exam Screening for metabolic disorder Performed By: #### A 1C WTH eA, CMP, LIPID, CBC #### [facility] [address] [place] [id number] [place] Calcium [Mass/volume] in Ser um or PlasmaOrdered By: Milagro Mejias on 07-03-2023 Calcium [Mass/Vol] 9.7 mg/dL Normal 8.6-10.3 [facility] Comment on above: Order Comment: Reaso n for Exam Screening for lipid disorders Reason for Exam Screening for metabolic disorder Performed By: #### A 1C WTH eA, CMP, LIPID, CBC #### [facility] [address] [place] [id number] [place] Carbon dioxide, total [Moles /volume] in Serum or PlasmaOrdered By: Milagro Mejias on 07-03-2023 CO2 [Moles/Vol] 28.5 mmol/L Normal 21.0-31.0 [facility] Comment on above: Order Comment: Reaso n for Exam Screening for lipid disorders Reason for Exam Screening for metabolic disorder Performed By: #### A 1C WTH eA, CMP, LIPID, CBC #### [facility] [address] [place] [id number] [place] Chloride [Moles/volume] in S brii or PlasmaOrdered By: Milagro Mejias on 07-03-2023 Chloride [Moles/Vol] 103 mmol/L Normal 98-107 [facility] Comment on above: Order Comment: Reaso n for Exam Screening for lipid disorders Reason for Exam Screening for metabolic disorder Performed By: #### A 1C WTH eA, CMP, LIPID, CBC #### [facility] [address] Cholesterol [Mass/volume] in Serum or PlasmaOrdered By: Milagro Mejias on 07-03-2023 Cholesterol [Mass/Vol] 137 mg/dL Low 140-200 [facility] Comment on above: Chol less than [...] 1C WTH eA, CMP, LIPID, CBC #### [facility] [address] Cholesterol in LDL Calc [Mas s/Vol]Ordered By: Milagro Mejias on 07-03-2023 Cholesterol in LDL [Mass/Vol] 67 mg/dL 0-100 [facility] Comment on above: LDL ATP III CLASSIFI CATIONLDL less than 100 mg/dL OptimalLDL 100-129 mg/dL Near or above optimalLDL 130-159 mg/dL Borderline highLDL 160-189 mg/dL HighLDL greater than 189 mg/dL Very high Cholesterol in VLDL Calc [Ma ss/Vol]Ordered By: Milagro Mejias on 07-03-2023 Cholesterol in VLDL [Mass/Vol] 32 mg/dL [facility] Complete Blood Count Auto Di ffon 07-03-2023 Mean Corpuscular HGB Conc 33.7 g/dL Normal 32.5-35.6 [facility] Comment on above: Order Comment: Reaso n for Exam Screening for deficiency anemia Performed By: #### A 1C WTH eA, CMP, LIPID, CBC #### [facility] [address] [place] [address] [place] NRBC% 0.1 /100{WBC} Normal 0-0.[address] [facility] Comment on above: Order Comment: Reaso n for Exam Screening for deficiency anemia Performed By: #### A 1C WTH eA, CMP, LIPID, CBC #### [facility] [address] Comprehensive Metabolic Pane venecia 07-03-2023 Albumin [Mass/Vol] 4.5 g/dL Normal 3.5-5.7 [facility] Comment on above: Order Comment: Reaso n for Exam Screening for lipid disorders Reason for Exam Screening for metabolic disorder Performed By: #### A 1C WTH eA, CMP, LIPID, CBC #### [facility] [address] GFR/1.73 sq M.predicted MDRD (S/P/Bld) [Vol rate/Area] mL/min/{1.73_m2} Normal [facility] Comment on above: Order Comment: Reaso n for Exam Screening for lipid disorders Reason for Exam Screening for metabolic disorder Performed By: #### A 1C WTH eA, CMP, LIPID, CBC #### [facility] [address] [place] [address] Creatinine [Mass/volume] in Serum or PlasmaOrdered By: Milagro Mejias on 07-03-2023 Creatinine [Mass/Vol] 1.29 mg/dL Normal 0.70-1.30 [facility] Comment on above: Order Comment: Reaso n for Exam Screening for lipid disorders Reason for Exam Screening for metabolic disorder Performed By: #### A 1C WTH eA, CMP, LIPID, CBC #### [facility] [address] [place] [address] Erythrocyte distribution wid th [Ratio] by Automated countOrdered By: Milagro Mejias on 07-03-2023 Erythrocyte distribution width (RBC) [Ratio] 15.6 % High 12.0-14.8 [facility] Comment on above: Order Comment: Reaso n for Exam Screening for deficiency anemia Performed By: #### A 1C WTH eA, CMP, LIPID, CBC #### [facility] [address] [place] [address] [place] Erythrocytes [#/volume] in B lood by Automated countOrdered By: Milagro Mejias on 07-03-2023 RBC (Bld) [#/Vol] 5.50 10*6/uL Normal 3.90-5.60 [facility] Comment on above: Order Comment: Reaso n for Exam Screening for deficiency anemia Performed By: #### A 1C WTH eA, CMP, LIPID, CBC #### [facility] [address] [place] [address] [place] Glucose [Mass/volume] in Ser um or PlasmaOrdered By: Milagro Mejias on 07-03-2023 Glucose [Mass/Vol] 117 mg/dL High 70-100 [facility] Comment on above: ADA recommended refe rence rangeRandom Glucose Reference Range is dependent on time and content of last meal. Glucose of more than 200 mg/dL in a nonstressed, ambulatory subject supports the diagnosis of Diabetes Mellitus. Order Comment: Reaso n for Exam Screening for lipid disorders Reason for Exam Screening for metabolic disorder Result Comment: Gorman om Glucose Reference Range is dependent on time and content of last meal. Glucose of more than 200 mg/dL in a nonstressed, ambulatory subject supports the diagnosis of Diabetes Mellitus. ADA recommended reference range Performed By: #### A 1C WTH eA, CMP, LIPID, CBC #### [place] [address] [place] Hematocrit [Volume Fraction] of Blood by Automated countOrdered By: Milagro Mejias on 07-03-2023 Hematocrit (Bld) [Volume fraction] 46.6 % Normal 38.8-50.0 [facility] Comment on above: Order Comment: Reaso n for Exam Screening for deficiency anemia Performed By: #### A 1C WTH eA, CMP, LIPID, CBC #### [facility] [address] [place] [address] [place] Hemoglobin [Mass/volume] in BloodOrdered By: Milagro Mejias on 07-03-2023 Hemoglobin (Bld) [Mass/Vol] 15.7 g/dL Normal 13.0-17.0 [facility] Comment on above: Order Comment: Reaso n for Exam Screening for deficiency anemia Performed By: #### A 1C WTH eA, CMP, LIPID, CBC #### [facility] [address] [place] [id number] [place] Leukocytes [#/volume] correc debbie for nucleated erythrocytes in Blood by Automated counOrdered By: Milagro Mejias on 07-03-2023 WBC corrected for nucl RBC Auto (Bld) [#/Vol] 8.0 10*3/uL 4.1-10.5 [facility] Leukocytes [#/volume] in Blo od by Automated countOrdered By: Milagro Mejias on 07-03-2023 WBC (Bld) [#/Vol] 8.0 10*3/uL Normal 4.1-10.5 [facility] Comment on above: Order Comment: Reaso n for Exam Screening for deficiency anemia Performed By: #### A 1C WTH eA, CMP, LIPID, CBC #### [facility] [address] Lipid Panelon 07-03-2023 LDL Cholesterol,Calculated 67 mg/dL Normal 0-100 [facility] Comment on above: Order Comment: [...] 1C WTH eA, CMP, LIPID, CBC #### [facility] [address] Triglyceride w/Reflex 164 mg/dL High 0-149 [facility] Comment on above: Order [...] 1C WTH eA, CMP, LIPID, CBC #### [facility] [address] VLDL CHOLESTEROL 32 mg/dL Normal [facility] Comment on above: Order Comment: Reaso n for Exam Screening for lipid disorders Reason for Exam Screening for metabolic disorder Performed By: #### A 1C WTH eA, CMP, LIPID, CBC #### [facility] [address] Lymphocytes [#/volume] in Bl ood by Automated countOrdered By: Milagro Mejias on 07-03-2023 Lymphocytes (Bld) [#/Vol] 1.3 10*3/uL Normal 1.00-4.8 [facility] Comment on above: Order Comment: Reaso n for Exam Screening for deficiency anemia Performed By: #### A 1C WTH eA, CMP, LIPID, CBC #### [address] Lymphocytes/100 leukocytes i n Blood by Automated countOrdered By: Milagro Mejias on 07-03-2023 Lymphocytes/100 WBC (Bld) 16.8 % Normal . [facility] Comment on above: Order Comment: Reaso n for Exam Screening for deficiency anemia Performed By: #### A 1C WTH eA, CMP, LIPID, CBC #### [address] MCH [Entitic mass] by Automa debbie countOrdered By: Milagro Mejias on 07-03-2023 MCH (RBC) [Entitic mass] 28.6 pg Normal 27.5-35.2 [facility] Comment on above: Order Comment: Reaso n for Exam Screening for deficiency anemia Performed By: #### A 1C WTH eA, CMP, LIPID, CBC #### [address] MCHC Auto (RBC) [Mass/Vol]Or dered By: Milagro Mejias on 07-03-2023 MCHC (RBC) [Mass/Vol] 33.7 g/dL 32.5-35.6 [facility] MCV [Entitic volume] by Auto mated countOrdered By: Milagro Mejias on 07-03-2023 MCV (RBC) [Entitic vol] 84.8 fL Normal 83.5-101 F [facility] Comment on above: Order Comment: Reaso n for Exam Screening for deficiency anemia Performed By: #### A 1C WTH eA, CMP, LIPID, CBC #### [facility] [address] Neutrophils [#/volume] in Bl ood by Automated countOrdered By: Milagro Mejias on 07-03-2023 Neutrophils (Bld) [#/Vol] 6.0 10*3/uL Normal 1.8-7.7 [facility] Comment on above: Order Comment: Reaso n for Exam Screening for deficiency anemia Performed By: #### A 1C WT eA, CMP, LIPID, CBC #### [facility] [address] No Panel InformationOrdered By: Milagro Mejias on 07-03-2023 Estimated GFR (CKD-EPI) > 60.0 mL/Min [facility] Creatinine Clearance (Chem N/A [facility] Nucleated erythrocytes [Pres ence] in Blood by Automated countOrdered By: Milagro Mejias on 07-03-2023 Nucleated RBC Auto Ql (Bld) 0.1 /100{WBC} 0-0.5 [facility] Platelet mean volume [Entiti c volume] in Blood by Automated countOrdered By: Milagro Mejias on 07-03-2023 Platelet mean volume (Bld) [Entitic vol] 10.1 fL Normal 6.6-10.1 [facility] Comment on above: Order Comment: Reaso n for Exam Screening for deficiency anemia Performed By: #### A 1C WT eA, CMP, LIPID, CBC #### [facility] [address] [place] [address] [place] Platelets [#/volume] in Bloo d by Automated countOrdered By: Milagro Mejias on 07-03-2023 Platelets (Bld) [#/Vol] 168 10*3/uL Normal 150-450 [facility] Comment on above: Order Comment: Reaso n for Exam Screening for deficiency anemia Performed By: #### A 1C WTH eA, CMP, LIPID, CBC #### [facility] [address] [place] [address] Potassium [Moles/volume] in Serum or PlasmaOrdered By: Milagro Mejias on 07-03-2023 Potassium [Moles/Vol] 4.0 mmol/L Normal 3.5-5.1 [facility] Comment on above: Order Comment: Reaso n for Exam Screening for lipid disorders Reason for Exam Screening for metabolic disorder Performed By: #### A 1C WTH eA, CMP, LIPID, CBC #### [facility] [address] Protein [Mass/volume] in Ser um or PlasmaOrdered By: Milagro Mejias on 07-03-2023 Protein [Mass/Vol] 7.1 g/dL Normal 6.4-8.9 [facility] Comment on above: Order Comment: Reaso n for Exam Screening for lipid disorders Reason for Exam Screening for metabolic disorder Performed By: #### A 1C WTH eA, CMP, LIPID, CBC #### [facility] [address] [place] [address] Serum globulin measurement b y calculation (mass/volume)Ordered By: Milagro Mejias on 07-03-2023 Globulin (S) [Mass/Vol] 2.6 g/dL Normal [facility] Comment on above: Order Comment: Reaso n for Exam Screening for lipid disorders Reason for Exam Screening for metabolic disorder Performed By: #### A 1C WT eA, CMP, LIPID, CBC #### [facility] [address] [place] [id number] [facility] Serum or plasma albumin/glob ulin mass ratioOrdered By: Milagro Mejias on 07-03-2023 Albumin/Globulin [Mass ratio] 1.7 {ratio} Normal [facility] Comment on above: Order Comment: Reaso n for Exam Screening for lipid disorders Reason for Exam Screening for metabolic disorder Performed By: #### A 1C WTH eA, CMP, LIPID, CBC #### [facility] [address] [place] [id number] [place] Serum or plasma anion gap de terminationOrdered By: Milagro Mejias on 07-03-2023 Anion gap [Moles/Vol] 10.5 mmol/L Normal 6.0-15.0 [facility] Comment on above: Order Comment: Reaso n for Exam Screening for lipid disorders Reason for Exam Screening for metabolic disorder Performed By: #### A 1C WT eA, CMP, LIPID, CBC #### [facility] [address] Serum or plasma high density lipoprotein (HDL) cholesterol measurementOrdered By: Milagro Mejias on 07-03-2023 Cholesterol in HDL [Mass/Vol] 37 mg/dL Normal 23-92 [facility] Comment on above: HDL CHOL ATP-III [...] 1C WTH eA, CMP, LIPID, CBC #### [address] Serum or plasma total choles terol/high density lipoprotein (HDL) cholesterol mass ratOrdered By: Milagro Mejias on 07-03-2023 Cholesterol.total/Melanie sterol in HDL [Mass ratio] 3.7 {ratio} Normal <5.0 [facility] Comment on above: Order Comment: Reaso n for Exam Screening for lipid disorders Reason for Exam Screening for metabolic disorder Result Comment: PERF ORMED BY: [place] [address] PATHOLOGIST CONSUMER EXPERIENCE CONSULTANT JOVITA WATSON M.D. Performed By: #### A 1C WTH eA, CMP, LIPID, CBC #### [facility] [address] Sodium [Moles/volume] in Ser um or PlasmaOrdered By: Milagro Mejias on 07-03-2023 Sodium [Moles/Vol] 138 mmol/L Normal 136-145 [facility] Comment on above: Order Comment: Reaso n for Exam Screening for lipid disorders Reason for Exam Screening for metabolic disorder Performed By: #### A 1C WTH eA, CMP, LIPID, CBC #### [facility] [address] Thyrotropin [Units/volume] i n Serum or PlasmaOrdered By: Milagro Mejias on 07-03-2023 TSH Qn 3.77 m[IU]/L Normal 0.45-5.33 [facility] Comment on above: Order Comment: Reaso n for Exam Excessive sweating Result Comment: PERF ORMED BY: [place] [address] PATHOLOGIST CONSUMER EXPERIENCE CONSULTANT JOVITA WATSON M.D. Performed By: #### T SH3, T4F #### [address] Thyroxine (T4) free [Mass/vo lume] in Serum or PlasmaOrdered By: Milagro Mejias on 07-03-2023 Free T4 [Mass/Vol] 0.52 ng/dL Low 0.61-1.12 [facility] Comment on above: Order Comment: Reaso n for Exam Excessive sweating Performed By: #### T SH3, T4F #### [place] [id number] [facility] Triglyceride [Mass/volume] i n Serum or PlasmaOrdered By: Milagro Mejias on 07-03-2023 Triglyceride [Mass/Vol] 164 mg/dL 0-149 F [facility] Comment on above: TRIG ATP III CLASSIF ICATIONTRIG less than 150 mg/dL NormalTRIG 150-199 mg/dL Borderline highTRIG 200-500 mg/dL High TRIG greater than 500 mg/dL Very highStandard traceable to the Center for Disease Conrtrol and Prevention (CDC) test method. Triiodothyronine (T3) Freeon 07-03-2023 Triiodothyronine (T3) Free 3.35 pg/mL Normal 2.50-3.90 [facility] Comment on above: Result Comment: PERF ORMED BY: [place] [address] PATHOLOGIST CONSUMER EXPERIENCE CONSULTANT JOVITA WATSON M.D. Performed By: #### T 3F #### [facility] [address] [place], [place] [id number] [facility] Triiodothyronine (T3) Free [ Mass/volume] in Serum or PlasmaOrdered By: Kourtney Woods on 07-03-2023 Free T3 [Mass/Vol] 3.35 pg/mL 2.50-3.90 [facility] Urea nitrogen [Mass/volume] in Serum or PlasmaOrdered By: Milagro Mejias on 07-03-2023 Urea nitrogen [Mass/Vol] 15 mg/dL Normal 7-25 [facility] Comment on above: Order Comment: Reaso n for Exam Screening for lipid disorders Reason for Exam Screening for metabolic disorder Performed By: #### A 1C WTH eA, CMP, LIPID, CBC #### [facility] [address] echo transthoracicon [facility] echo transthoracic [facility] [address] [place] [address] [place] [address] Echocardiogram Signed Patient: Jacobo Haque SR MR#: [id number] : 1960 Acct:[id number] Age/Sex: 62 / M ADM Date: 01/05/23 Loc: Room: Type: [facility] Attending Dr: JUNIOR Simmons APRN Ordering Provider: Milagro Mejias APRN, CNP Date of Service: 01/05/23/ [facility] echo transthoracic: SHORTNESS OF BREATH, MURMUR Copies [...] Murtaza Matos MD 01/05/23 1600 Normal [facility] Creatinine (Bld) [Mass/Vol]O rdered By: Milagro Mejias on 01-04-2023 Creatinine [Mass/Vol] 0.7 mg/dL 0.6-1.3 [facility] Comment on above: ER/ESD physician is notified/shown all ISTAT results.Critical values may be confirmed by laboratory testing ifdeemed necessary by ER attending doctor. MR head/brain wo/w april MR head/brain wo/w con [facility] [place] [address] MRI Report Signed Patient: GarlandJacobo SR MR#: [id number] : 1960 Acct:[id number] Age/Sex: 62 / M ADM Date: 01/04/23 Loc: MR Room: Type: [facility] Attending Dr: JUNIOR Simmons APRN Copies [...] Evan Lundberg M.D.01/04/2023 5:27 PM Dictation Location: [place] [address] Transcribed By: [facility] 01/04/231726 Dictated By: Evan Lundberg II, MD 01/04/231720 Signed By: 01/04/231726 Normal [facility] XR elbow LT min 3V*on 2022 XR elbow LT min 3V* [facility] [employer] Other XR elbow LT min 3V* [facility] [employer] Other XR elbow LT min 3V* 1111 [facility] [employer] Other XR elbow LT min 3V* [place] [id number] [employer] Other XR elbow LT min 3V* XRay Report [employer] Other XR elbow LT min 3V* Signed [employer] Other XR elbow LT min 3V* Patient: Jacobo Haque MR#: [id number] [employer] Other XR elbow LT min 3V* [id number] [employer] Other XR elbow LT min 3V* : 1960 Acct:[id number] [employer] Other XR elbow LT min 3V* Age/Sex: 61 / M ADM Date: 05/12/22 [employer] Other XR elbow LT min 3V* Loc: [facility]XD Room: Type : [facility] [employer] Other XR elbow LT min 3V* Attending Dr: Milagro PACHECO [employer] Other XR elbow LT min 3V* Copies to: HENRIK BarbaYennifer [employer] Other XR elbow LT min 3V* Ordering Provider: MARISOL Barba [employer] Other XR elbow LT min 3V* Date of Service: 05/12/22 [employer] Other XR elbow LT min 3V* XR/XR elbow LT min 3V*: Left lateral epicondylitis [employer] Other XR elbow LT min 3V* LEFT ELBOW - 4 views [employer] Other XR elbow LT min 3V* CLINICAL HISTORY: Follow-up left lateral epicondylar release [employer] Other XR elbow LT min 3V* COMPARISON: Left elbow 01/06/2022 [employer] Other XR elbow LT min 3V* FINDINGS: [employer] Other XR elbow LT min 3V* No elbow joint effusion. No acute bony process. Joint spaces appear maintained. [employer] Other XR elbow LT min 3V* XR/XR elbow LT min 3V* [employer] Other XR elbow LT min 3V* IMPRESSION: [employer] Other XR elbow LT min 3V* NO ACUTE BONY PROCESS. [employer] Other XR elbow LT min 3V* Impression dictated by: Jose Rob Jr., DBarrettOBarrett05/12/2022 2:54 PM [employer] Other XR elbow LT min 3V* Dictation Location: [facility] [employer] Other XR elbow LT min 3V* Transcribed By: CRISSY 05/12/22 [facility] [employer] Other XR elbow LT min 3V* Dictated By: Jose Rob Jr DO 05/12/22 1453 [employer] Other XR elbow LT min 3V* Signed By: [employer] Other XR elbow LT min 3V* 05/12/22 1454 [employer] Other Glucose Glucometer (dC) [M ass/Vol]Ordered By: Giovany Krishna on 04-20-2022 Glucose [Mass/Vol] 91 mg/dL [facility] Comment on above: Random Glucose Refer ence Range is dependent on time and content of last meal. Glucose of more than 200 mg/dL in a nonstressed, ambulatory subject supports the diagnosis of Diabetes Mellitus. No Panel InformationOrdered By: Giovany Krishna on 04-20-2022 Bedside Glucose Comment Glu2: cleaned meter [facility] Albumin [Mass/volume] in Ser um or PlasmaOrdered By: Giovany Krishna on 04-07-2022 Albumin [Mass/Vol] 3.9 g/dL 3.2-5.5 [facility] Basophils Auto (Bld) [#/Vol] Ordered By: Giovany Krishna on 04-07-2022 Basophils (Bld) [#/Vol] 0.0 10*3/uL 0.0-0.2 [facility] Basophils/100 WBC Auto (Bld) Ordered By: Giovany Krishna on 04-07-2022 Basophils/100 WBC (Bld) 0.7 % . F [facility] Creatinine and Glomerular fi ltration rate.predicted panel (S/P/Bld)Ordered By: Giovany Krishna on 04-07-2022 Creatinine [Mass/Vol] 1.12 mg/dL 0.64-1.27 [facility] Eosinophils Auto (Bld) [#/Vo l]Ordered By: Giovany Krishna on 04-07-2022 Eosinophils (Bld) [#/Vol] 0.2 10*3/uL 0.0-0.45 [facility] Eosinophils/100 WBC Auto (Bl d)Ordered By: Giovany Krishna on 04-07-2022 Eosinophils/100 WBC (Bld) 3.2 % . [facility] Erythrocyte distribution wid th Auto (RBC) [Ratio]Ordered By: Giovany Krishna on 04-07-2022 Erythrocyte distribution width (RBC) [Ratio] 13.7 % 12.0-14.8 [facility] Estimated glomerular filtrat ion rate (GFR) non- AmericanOrdered By: Giovany Krishna on 04-07-2022 GFR/1.73 sq M.predicted among non-blacks MDRD (S/P/Bld) [Vol rate/Area] > 60 mL/Min [facility] Globulin Calc (S) [Mass/Vol] Ordered By: Giovany Krishna on 04-07-2022 Globulin (S) [Mass/Vol] 2.4 g/dL F [facility] Hematocrit Auto (Bld) [Volum e fraction]Ordered By: Giovany Krishna on 04-07-2022 Hematocrit (Bld) [Volume fraction] 45.3 % 38.8-50.0 [facility] Hemoglobin [Mass/volume] in BloodOrdered By: Giovany Krishna on 04-07-2022 Hemoglobin (Bld) [Mass/Vol] 15.0 g/dL 13.0-17.0 [facility] Leukocytes [#/volume] correc debbie for nucleated erythrocytes in Blood by Automated counOrdered By: Giovany Krishna on 04-07-2022 WBC corrected for nucl RBC Auto (Bld) [#/Vol] 6.3 10*3/uL 4.1-10.5 [facility] Lymphocytes Auto (Bld) [#/Vo l]Ordered By: Giovany Krishna on 04-07-2022 Lymphocytes (Bld) [#/Vol] 1.6 10*3/uL 1.00-4.8 [facility] Lymphocytes/100 WBC Auto (Bl d)Ordered By: Giovany Krishna on 04-07-2022 Lymphocytes/100 WBC (Bld) 25.7 % . [facility] MCH Auto (RBC) [Entitic mass ]Ordered By: Giovany Krishna on 04-07-2022 MCH (RBC) [Entitic mass] 28.8 pg 27.5-35.2 [facility] MCHC Auto (RBC) [Mass/Vol]Or dered By: Giovany Krishna on 04-07-2022 MCHC (RBC) [Mass/Vol] 33.2 g/dL 32.5-35.6 [facility] MCV Auto (RBC) [Entitic vol] Ordered By: Giovany Krishna on 04-07-2022 MCV (RBC) [Entitic vol] 86.6 fL 83.5-101 F [facility] Monocytes Auto (Bld) [#/Vol] Ordered By: Giovany Krishna on 04-07-2022 Monocytes (Bld) [#/Vol] 0.6 10*3/uL 0.0-0.8 [facility] Monocytes/100 WBC Auto (Bld) Ordered By: Giovany rKishna on 04-07-2022 Monocytes/100 WBC (Bld) 9.1 % . F [facility] Neutrophils Auto (Bld) [#/Vo l]Ordered By: Giovany Krishna on 04-07-2022 Neutrophils (Bld) [#/Vol] 3.9 10*3/uL 1.8-7.7 [facility] Neutrophils/100 WBC Auto (Bl d)Ordered By: Giovany Krishna on 04-07-2022 Neutrophils/100 WBC (Bld) 61.3 % . [facility] No Panel InformationOrdered By: Giovany Krishna on 04-07-2022 Estimated GFR () > 60 mL/Min [facility] Comment on above: GFR estimated refere nce range: According to KDOQI guidelines, <60 ml/min/1.73m2 is sufficient to diagnose a patient with chronic kidney disease. Pharmacy Creatinine Clearance (Chem N/A [facility] Nucleated erythrocytes [Pres ence] in Blood by Automated countOrdered By: Giovany Krishna on 04-07-2022 Nucleated RBC Auto Ql (Bld) 0.0 /100{WBC} 0-0.5 [facility] Platelet mean volume Auto (B ld) [Entitic vol]Ordered By: Giovany Krishna on 04-07-2022 Platelet mean volume (Bld) [Entitic vol] 9.9 fL 6.6-10.1 [facility] Platelets Auto (Bld) [#/Vol] Ordered By: Giovany Krishna on 04-07-2022 Platelets (Bld) [#/Vol] 172 10*3/uL 150-450 [facility] Protein [Mass/volume] in Ser um or PlasmaOrdered By: Giovany Krishna on 04-07-2022 Protein [Mass/Vol] 6.3 g/dL 6.1-7.9 [facility] RBC Auto (Bld) [#/Vol]Ordere d By: Giovany Krishna on 04-07-2022 RBC (Bld) [#/Vol] 5.23 10*6/uL 3.90-5.60 [facility] Serum or plasma alanine paul otransferase measurement without P-5'-P (enzymatic activiOrdered By: Giovany Krishna on 04-07-2022 ALT No additional P-5'-P [Catalytic activity/Vol] 16 U/L 10-60 [facility] Serum or plasma albumin/glob ulin mass ratioOrdered By: Giovany Krishna on 04-07-2022 Albumin/Globulin [Mass ratio] 1.6 {ratio} [facility] Serum or plasma alkaline mirtha sphatase measurement (enzymatic activity/volume)Ordered By: Giovany Krishna on 04-07-2022 ALP [Catalytic activity/Vol] 51 U/L 32-92 [facility] Serum or plasma anion gap de terminationOrdered By: Giovany Krishna on 04-07-2022 Anion gap [Moles/Vol] 13.8 mmol/L 6.0-15.0 [facility] Serum or plasma aspartate am inotransferase measurement (enzymatic activity/volume)Ordered By: Giovany Krishna on 04-07-2022 AST [Catalytic activity/Vol] 18 U/L 10-42 [facility] Serum or plasma calcium sneha urement (mass/volume)Ordered By: Giovany Krishna on 04-07-2022 Calcium [Mass/Vol] 8.9 mg/dL 8.2-10.2 [facility] Serum or plasma chloride kourtney surement (moles/volume)Ordered By: Giovany Krishna on 04-07-2022 Chloride [Moles/Vol] 102 mmol/L 95-114 [facility] Serum or plasma glucose sneha urement (mass/volume)Ordered By: Giovany Krishna on 04-07-2022 Glucose [Mass/Vol] 112 mg/dL 70-100 [facility] Comment on above: ADA recommended refe rence rangeRandom Glucose Reference Range is dependent on time and content of last meal. Glucose of more than 200 mg/dL in a nonstressed, ambulatory subject supports the diagnosis of Diabetes Mellitus. Serum or plasma potassium me asurement (moles/volume)Ordered By: Giovany Krishna on 04-07-2022 Potassium [Moles/Vol] 4.0 mmol/L 3.5-5.1 [facility] Serum or plasma sodium measu rement (moles/volume)Ordered By: Giovany Krishna on 04-07-2022 Sodium [Moles/Vol] 139 mmol/L 136-146 [facility] Serum or plasma total biliru bin measurement (mass/volume)Ordered By: Giovany Krishna on 04-07-2022 Bilirubin [Mass/Vol] 0.7 mg/dL 0.3-1.2 [facility] Serum or plasma total carbon dioxide measurement (moles/volume)Ordered By: Giovany Krishna on 04-07-2022 CO2 [Moles/Vol] 27.2 mmol/L 22.0-30.0 [facility] Serum or plasma urea nitroge n measurement (mass/volume)Ordered By: Giovany Krishna on 04-07-2022 Urea nitrogen [Mass/Vol] 16 mg/dL 12-10 [facility] WBC Auto (Bld) [#/Vol]Ordere d By: Giovany Krishna on 04-07-2022 WBC (Bld) [#/Vol] 6.3 10*3/uL 4.1-10.5 [facility] MICROALBUMIN URINEon 022 Albumin, Urine 10.6 ug/mL Normal Not Estab. [facility] Comment on above: Performed By: #### M ALBLC #### [facility] [address] [place] [address] Dr. Steven Camarillo CBC AUTO DIFFon 11-04-2021 BASO # 0.0 103/ul Normal 0.0-0.1 [facility] Comment on above: Performed By: #### C BC #### [facility] [address] [place] [address] Dr. Steven Camarillo Basophils/100 WBC (Bld) 0.5 % Normal 0.2-2.[address] [facility] Comment on above: Performed By: #### C BC #### [facility] [address] [place] [address] Dr. Steven Camarillo EO # 0.2 103/ul Normal 0.0-0.7 [facility] Comment on above: Performed By: #### C BC #### [facility] [address] [place] [address] Dr. Steven Camarillo Eosinophils/100 WBC (Bld) 2.9 % Normal 0.9-7.0 [facility] Comment on above: Performed By: #### C BC #### [facility] [address] [place] [address] Dr. Steven Camarillo Erythrocyte distribution width (RBC) [Ratio] 12.7 % Normal 11.0-15.0 [facility] Comment on above: Performed By: #### C BC #### [facility] [address] [place] [address] Dr. Steven Camarillo Hematocrit (Bld) [Volume fraction] 47.3 % Normal 42.0-54.0 [facility] Comment on above: Performed By: #### C BC #### [facility] [address] [place] [address] Dr. Steven Camarillo Hemoglobin (Bld) [Mass/Vol] 15.9 g/dL Normal 14.0-18.0 [facility] Comment on above: Performed By: #### C BC #### [facility] [address] [place] [address] Dr. Steven Camarillo IG # 0.04 10e3/ul Critically high 0.00-0.03 [facility] Comment on above: Performed By: #### C BC #### [facility] [address] [place] [address] Dr. Steven Camarillo IG % 0.5 % Normal 0.0-0.5 [facility] Comment on above: Performed By: #### C BC #### [facility] [address] [place] [address] Dr. Steven Camarillo LYMPH # 1.7 103/ul Normal 1.2-3.8 [facility] Comment on above: Performed By: #### C BC #### [facility] [address] [place] [address] Dr. Steven Camarillo Lymphocytes/100 WBC (Bld) 21.5 % Normal 20.5-60.0 [facility] Comment on above: Performed By: #### C BC #### [facility] [address] [place] [address] Dr. Steven Camarillo MANUAL DIFF REQ NO Normal [facility] Comment on above: Performed By: #### C BC #### [facility] [address] [place] [address] Dr. Steven Camarillo MCH (RBC) [Entitic mass] 29.0 pg Normal 25.9-34.0 [facility] Comment on above: Performed By: #### C BC #### [facility] [address] [place] [address] Dr. Steven Camarillo MCHC (RBC) [Mass/Vol] 33.6 g/dL Normal 29.9-35.2 [facility] Comment on above: Performed By: #### C BC #### [facility] [address] [place] [address] Dr. Steven Camarillo MCV (RBC) [Entitic vol] 86.2 fL Normal 80.0-94.[address] [facility] Comment on above: Performed By: #### C BC #### [facility] [address] [place] [address] Dr. Steven Camarillo MONO # 0.6 103/ul Normal 0.3-0.8 [facility] Comment on above: Performed By: #### C BC #### [facility] [address] [place] [address] Dr. Steven Camarillo Monocytes/100 WBC (Bld) 8.0 % Normal 1.7-12.[address] [facility] Comment on above: Performed By: #### C BC #### [facility] [address] [place] [address] Dr. Steven Camarillo NEUT # 5.4 103/ul Normal 1.4-6.5 [facility] Comment on above: Performed By: #### C BC #### [facility] [address] [place] [address] Dr. Steven Camarillo Neutrophils/100 WBC (Bld) 66.6 % Normal 43.0-75.0 [facility] Comment on above: Performed By: #### C BC #### [facility] [address] [place] [address] Dr. Steven Camarillo Platelet mean volume (Bld) [Entitic vol] 10.9 fL Normal 9.5-13.5 [facility] Comment on above: Performed By: #### C BC #### [facility] [address] [place] [address] Dr. Steven Camarillo PLT 227 103/ul Normal 150-450 [facility] Comment on above: Performed By: #### C BC #### [facility] [address] [place] [address] Dr. Steven Camarillo RBC 5.49 106/ul Normal 4.70-6.10 [facility] Comment on above: Performed By: #### C BC #### [facility] [address] [place] [address] Dr. Steven Camarillo WBC 8.1 103/ul Normal 4.0-11.0 [facility] Comment on above: Performed By: #### C BC #### [facility] [address] [place] [address] Dr. Steven Camarillo GLYCOHEMOGLOBIN A1Con 2021 ADA RECOMMENDATION SEE BELOW Normal [facility] Comment on above: Result Comment: ADA RECOMMENDED LIMIT 4.0 - 6.0 ADA THERAPEUTIC TARGET < 7.0 ACTION SUGGESTED > 7.0 Performed By: #### A 1C #### [facility] [address] [place] [address] Dr. Steven Camarillo Glucose [Mass/Vol] 108 mg/dL Normal [facility] Comment on above: Performed By: #### A 1C #### [facility] [address] [place] [address] Dr. Steven Camarillo HbA1c (Bld) [Mass fraction] 5.4 % Normal 4.5-6.2 [facility] Comment on above: Performed By: #### A 1C #### [facility] [address] [place] [address] Dr. Steven Camarillo PROF 14(COMP METB)on 022 Albumin [Mass/Vol] 4.0 g/dL Normal 3.4-5.0 [facility] Comment on above: Performed By: #### C MP #### [facility] [address] [place] [address] Dr. Steven Camarillo Albumin/Globulin [Mass ratio] 1.1 {ratio} Normal [facility] Comment on above: Performed By: #### C MP #### [facility] [address] [place] [address] [address] Steven Camarillo ALP [Catalytic activity/Vol] 76 U/L Normal 46-116 [facility] Comment on above: Performed By: #### C MP #### [facility] [address] [place] [address] Dr. Steven Camarillo ALT [Catalytic activity/Vol] 18 U/L Normal 16-63 [facility] Comment on above: Performed By: #### C MP #### [facility] [address] [place] [address] [address] Steven Camarillo Anion gap [Moles/Vol] 10.7 mmol/L Normal Th [facility] Comment on above: Performed By: #### C MP #### [facility] [address] [place] [address] Dr. Steven Camarillo AST [Catalytic activity/Vol] 13 U/L Critically low 15-37 [facility] Comment on above: Performed By: #### C MP #### [facility] [address] [place] [address] Dr. Steven Camarillo Bilirubin [Mass/Vol] 0.4 mg/dL Normal 0.2-1.0 [facility] Comment on above: Performed By: #### C MP #### [facility] [address] [place] [address] Dr. Steven Camarillo Calcium [Mass/Vol] 9.2 mg/dL Normal 8.5-10.1 [facility] Comment on above: Performed By: #### C MP #### [facility] [address] [place] [address] Dr. Steven Camarillo Chloride [Moles/Vol] 102 mmol/L Normal 98-107 [facility] Comment on above: Performed By: #### C MP #### [facility] [address] [place] [address] Dr. Steven Camarillo CO2 [Moles/Vol] 29.6 mmol/L Normal 21.0-32.0 [facility] Comment on above: Performed By: #### C MP #### [facility] [address] [place] [address] Dr. Steven Camarillo Creatinine [Mass/Vol] 1.14 mg/dL Normal 0.70-1.30 [facility] Comment on above: Performed By: #### C MP #### [facility] [address] [place] [address] [address] Steven Camarillo EGFR-AF PANAMANIAN >60 Normal >=60 [facility] Comment on above: Performed By: #### C MP #### [facility] [address] [place] [address] [address] Steven Camarillo EGFR-NON AF PANAMANIAN >60 Normal >=60 [facility] Comment on above: Performed By: #### C MP #### [facility] [address] [place] [address] [address] Steven Camarillo Globulin (S) [Mass/Vol] 3.7 g/dL Normal [facility] Comment on above: Performed By: #### C MP #### [facility] [address] [place] [address] [address] Steven Camarillo Glucose [Mass/Vol] 114 mg/dL Critically high 74-[address] [facility] Comment on above: Performed By: #### C MP #### [facility] [facility] [address] [address] [address] Steven Camarillo Potassium [Moles/Vol] 4.3 mmol/L Normal 3.5-5.1 [facility] Comment on above: Performed By: #### C MP #### [facility] [address] [address] [address] Steven Camarillo Protein [Mass/Vol] 7.7 g/dL Normal 6.4-8.2 [facility] Comment on above: Performed By: #### C MP #### [facility] [address] [address] [address] Steven Camarillo Sodium [Moles/Vol] 138 mmol/L Normal 136-145 [facility] Comment on above: Performed By: #### C MP #### [facility] [address] [address] [address] Steven Camarillo Urea nitrogen [Mass/Vol] 17.0 mg/dL Normal 7.0-18.0 [facility] Comment on above: Performed By: #### C MP #### [facility] [address] [address] [address] Steven Camarillo Urea nitrogen/Creatinine [Mass ratio] 14.9 mg/mg Normal [facility] Comment on above: Performed By: #### C MP #### [facility] [address] [address] [address] Steven Camarillo Vital Signs Date Time Vital Sign Value Performing Clinician Facility 05-29-2023 11:29-0400 Body height 172.72 cm QUALITY AND RELIABILITY ENGINEERCherie Mejias Work Phone: [facility] 05-29-2023 11:29-0400 Body mass index (BMI) [Ratio] 31.3 kg/m2 QUALITY AND RELIABILITY ENGINEERCherie Mejias Work Phone: [facility] 05-29-2023 11:29-0400 Body weight 93.44 kg MIGUEL Mejias Work Phone: [facility] 05-29-2023 11:29-0400 Diastolic blood pressure 77 mm[Hg] QUALITY AND RELIABILITY ENGINEERCherie Mejias Work Phone: [facility] 05-29-2023 11:29-0400 Heart rate 80 /min MIGUEL Mejias Work Phone: [facility] 05-29-2023 11:29-0400 SaO2% (BldA) [Mass fraction] 97 % QUALITY AND RELIABILITY ENGINEERCherie Mejias Work Phone: [facility] 05-29-2023 11:29-0400 Systolic blood pressure 122 mm[Hg] MIGUEL Mejias Work Phone: [facility] 04-06-2023 10:00-0500 Body height 172.72 cm Milagro Mejias Other [facility] 04-06-2023 10:00-0500 Body mass index (BMI) [Ratio] 30.56 kg/m2 Milagro Mejias Other [facility] Other 04-06-2023 10:00-0500 Body weight 91.17 kg Milagro Willr Other [facility] 04-06-2023 10:00-0500 Diastolic blood pressure 74 mm[Hg] Milagro Jakubacher Other [facility] 04-06-2023 10:00-0500 SaO2% (BldA) [Mass fraction] 95 % Milagro Jakubacher Other [employer] Other 04-06-2023 10:00-0500 Systolic blood pressure 124 mm[Hg] Milagro Jakubacher Other [facility] 12-23-2022 09:00-0400 Body height 172.72 cm Milagro Magalie Other [employer] Other 12-23-2022 09:00-0400 Body mass index (BMI) [Ratio] 29.98 kg/m2 Milagro Magalie Other [employer] Other 12-23-2022 09:00-0400 Body weight 89.45 kg Milagro Willr Other [facility] [employer] Other 12-23-2022 09:00-0400 Diastolic blood pressure 60 mm[Hg] Milagro Rose Marierbacher Other [facility] [employer] Other 12-23-2022 09:00-0400 SaO2% (BldA) [Mass fraction] 96 % Milagro Jakubacher Other [employer] Other 12-23-2022 09:00-0400 Systolic blood pressure 120 mm[Hg] Milagro Magalie Other [employer] Other 10-15-2022 10:25-0400 Body height 172.72 cm Tracy Wong Other [employer] Other 10-15-2022 10:25-0400 Body mass index (BMI) [Ratio] 31.9 kg/m2 Tracy Wong Other [employer] Other 10-15-2022 10:25-0400 Body temperature 99.1 [degF] Tracy Wong Other [employer] Other 10-15-2022 10:25-0400 Body weight 95.17 kg Tracy Wong Other [employer] Other 10-15-2022 10:25-0400 Diastolic blood pressure 73 mm[Hg] Tracy Wong Other [employer] Other 10-15-2022 10:25-0400 Respiratory rate 18 /min Tracy Wong Other [employer] Other 10-15-2022 10:25-0400 SaO2% (BldA) [Mass fraction] 95 % Tracy Wong Other [employer] Other 10-15-2022 10:25-0400 Systolic blood pressure 143 mm[Hg] Tracy Wong Other [employer] Other 04-20-2022 15:20-0500 Diastolic blood pressure 65 mm[Hg] DO [email or web address] Work Phone: [facility] 04-20-2022 15:20-0500 Heart rate 50 /min DO [employer] Phone: [facility] 04-20-2022 15:20-0500 Respiratory rate 16 /min DO [email or web address] Work Phone: [facility] 04-20-2022 15:20-0500 SaO2% (BldA) [Mass fraction] 98 % DO Len [employer] Work Phone: [facility] 04-20-2022 15:20-0500 Systolic blood pressure 112 mm[Hg] DO Len op5 Work Phone: [facility] 04-20-2022 13:55-0500 Inhaled oxygen flow rate 5 L/min DO [email or web address] Work Phone: [facility] 04-20-2022 12:34-0500 Body height 172.72 cm DO [email or web address] Work Phone: [facility] 04-20-2022 12:34-0500 Body mass index (BMI) [Ratio] 31 kg/m2 DO [email or web address] Work Phone: [facility] 04-20-2022 12:34-0500 Body weight 92.7 kg DO [email or web address] Work Phone: [facility] 04-20-2022 11:59-0500 Body temperature 98.6 [degF] DO [email or web address] Work Phone: [facility] 03-29-2022 09:30-0500 Body height 172.72 cm Giovany Krishna Other [employer] Other 03-29-2022 09:30-0500 Body mass index (BMI) [Ratio] 30.41 kg/m2 Giovany Olexa Other [employer] Other 03-29-2022 09:30-0500 Body weight 90.72 kg Giovany Olexa Other [employer] Other 01-06-2022 09:00-0400 Body height 172.72 cm Giovany Krishna Other [employer] Other 01-06-2022 09:00-0400 Body mass index (BMI) [Ratio] 31.93 kg/m2 Giovany Krishna Other [employer] Other 01-06-2022 09:00-0400 Body weight 95.26 kg Giovany Krishna Other [employer] Other Encounters Encounter Date Encounter Type Care Provider Facility Start: 10-30-2023 End: 10-30-2023 Patient encounter procedure QUALITY AND RELIABILITY ENGINEERCherie Mejias Work Phone: [facility] Start: 10-30-2023 End: 10-30-2023 ambulatory QUALITY AND RELIABILITY ENGINEERCherie Mejias Work Phone: [facility] Work Phone: Start: 07-03-2023 End: 07-03-2023 Patient encounter procedure QUALITY AND RELIABILITY ENGINEER Milagro Mejias Work Phone: [facility] Start: 07-03-2023 End: 07-03-2023 ambulatory QUALITY AND RELIABILITY ENGINEERCherie Mejias Work Phone: [facility] Work Phone: Start: 05-29-2023 End: 05-29-2023 Patient encounter procedure QUALITY AND RELIABILITY ENGINEER Milagro Mejias Work Phone: [facility] Work Phone: Start: 04-06-2023 End: 04-06-2023 ambulatory Milagro Mejias Other [facility] Other Start: 04-06-2023 Office outpatient vi sit 15 minutes Milagro Mejias [facility] Start: 04-06-2023 End: 04-06-2023 Patient encounter procedure QUALITY AND RELIABILITY ENGINEER Milagro Magalie Work Phone: [facility]- Start: 02-14-2023 End: 02-14-2023 ambulatory Milagro Magalie Other [employer] Other Start: 02-14-2023 Telephone encounter Milagro Trotterashleeadán her [facility] Start: 01-06-2023 End: 01-06-2023 ambulatory Milagro Magalie Other [employer] Other Start: 01-06-2023 Telephone encounter Milagro Shepard her [facility] Start: 01-05-2023 Telephone encounter Milagro Shepard her [facility] Start: 01-05-2023 End: 01-05-2023 Patient encounter procedure 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 Milgaro Magalie Work Phone: [facility] Work Phone: Start: 01-05-2023 End: 01-05-2023 ambulatory QUALITY AND RELIABILITY ENGINEER Milagro Magalie Work Phone: [facility] Work Phone: Start: 01-04-2023 End: 01-04-2023 Patient encounter procedure QUALITY AND RELIABILITY ENGINEER Milagro Magalie Work Phone: [facility] Work Phone: Start: 01-04-2023 End: 01-04-2023 ambulatory Milagro Mejias Facility:[facility] Start: 2022 End: 2022 ambulatory Milagro Mejias Other [employer] Other Start: 2022 Telephone encounter Milagro Shepard her [facility] Start: 12-23-2022 End: 12-23-2022 ambulatory Milagro Willr Other [employer] Other Start: 12-23-2022 Office outpatient ne w 30 minutes Milagro Mejias [facility] Start: 10-25-2022 End: 10-25-2022 ambulatory Giovany Olexa Other [employer] Other Start: 10-25-2022 Office outpatient vi sit 15 minutes Giovany Krishna [facility] Start: 10-15-2022 End: 10-15-2022 ambulatory Tracy Wong Other [employer] Other Start: 10-15-2022 Office outpatient vi sit 15 minutes Tracy Wong [facility] Start: 07-26-2022 End: 07-26-2022 ambulatory Milagro Ann Other [employer] Other Start: 07-26-2022 Office outpatient vi sit 15 minutes Milagro Ann [facility] Start: 05-12-2022 Postop follow up vis it related to original px Milagro Ann [facility] Start: 05-12-2022 Telephone encounter Giovany Krishna [facility] Start: 05-12-2022 End: 05-12-2022 ambulatory DO Len House Work Phone: [facility] Work Phone: Start: 05-12-2022 End: 05-12-2022 Patient encounter procedure DO Len House Work Phone: [facility] Start: 04-28-2022 End: 04-28-2022 ambulatory Giovany Everettxa Other [employer] Other Start: 04-28-2022 Postop follow up vis it related to original px Giovany Everettxa [facility] Start: 04-20-2022 End: 04-20-2022 Admission to same day surgery center DO Len House Work Phone: [facility] Start: 04-20-2022 End: 04-20-2022 ambulatory DO Len House Work Phone: [facility] Work Phone: Start: 04-18-2022 End: 04-18-2022 ambulatory Giovany Olexa Other [employer] Other Start: 04-18-2022 Telephone encounter Giovany Olexa [facility] Start: 04-07-2022 End: 04-07-2022 ambulatory DO Len House Work Phone: [facility] Work Phone: Start: 04-07-2022 End: 04-07-2022 Patient encounter procedure DO Len House Work Phone: [facility] Work Phone: Start: 03-29-2022 End: 03-29-2022 ambulatory Giovany Olexa Other [employer] Other Start: 03-29-2022 Encounter for other preprocedural examination Giovany Olexa [facility] Start: 03-29-2022 Office outpatient vi sit 25 minutes Giovany Olexa [facility] Start: 03-05-2022 End: 03-05-2022 Patient encounter procedure DO Len House Work Phone: [facility] Work Phone: Start: 01-13-2022 End: 01-13-2022 ambulatory Giovany Olexa Other [employer] Other Start: 01-13-2022 Telephone encounter Giovany Olexa [facility] Start: 01-06-2022 Office outpatient ne w 30 minutes Giovany Olexa [facility] Start: 01-06-2022 End: 01-06-2022 ambulatory Giovany Olexa Other [employer] Other Start: 01-06-2022 End: 01-06-2022 Patient encounter procedure MD Giovany Krishna Work Phone: [facility] Start: 11-04-2021 End: 11-05-[address] LEN DELGADO Facility:[facility]1 Procedures Date Procedure Procedure Detail Performing Clinician Start: 01-04-2023 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 Steven Camarillo Plan of Treatment Date Care Activity Detail Author Start: 04-20-2022 [facility] Start: 04-20-2022 [facility] Glucose measurement estimated from glycated hemoglobin [facility] Payers Date Payer Category Payer Private Health Insurance [id number] 2022 Self-pay 1960 Unknown [id number] 1957 Unknown [id number] Private Health Insurance [id number] Unknown [employer] [id number] Unknown [id number] Unknown [id number] Unknown [id number] Unknown [id number] Social History Date Type Detail Facility Unknown if ever smoked [facility] Other Sex Assigned At Sex Assigned At Bir th [facility] Other Start: 1960 Sex Assigned At Male F [facility] Start: 04-07-2022 End: 04-20-2022 Tobacco smoking status NHIS Ex-smoker (finding) [facility] Goals Date Patient Goal Desired Activity [...] plan. Mar, COPD exacerbation (ICD-10 - J44.1) [facility] Other 10-06-2023 Evaluation note* Encounter Date Diagnosis [...] exam-- echo ordered. Will call with resuts. [employer] Other 08-08-2023 Evaluation note* Encounter Date Diagnosis Assessment Notes Treatment Notes Treatment Clinical Notes Oct, Left lateral epicondylitis (ICD-10 - M77.12) Oct, Other specified postprocedural states (ICD-10 - Z98.890) Patient is progressing well from surgery. 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 Activity as tolerated. Call with questions/concerns. [facility] Other 07-29-2023 Evaluation note* Encounter Date Diagnosis Assessment Notes Treatment Notes Treatment Clinical Notes Sep, Acute lower respiratory infection (ICD-10 - J22) Discussed with patient concern for secondary pneumonia. Will cover with azithromycin. Finish entire course. Fluids and rest encouraged. Mucinex DM encouraged [id number]. May continue Zyrtec. Patient is encouraged to follow-up with PCP for recheck in the next 4 to 6 days. ER if any significantly worsening symptoms, fever, severe shortness of breath. Offered COVID testing in office, patient declines. [facility] Other 05-09-2023 Evaluation note* Encounter Date Diagnosis [...] in the office today and providing supervision. [facility] Other 02-23-2023 Evaluation note* Encounter Date Diagnosis Assessment Notes Treatment Notes Treatment Clinical Notes Apr, Left lateral epicondylitis (ICD-10 - M77.12) Apr, Other specified postprocedural states (ICD-10 - Z98.890) A prescription for anti-inflammatorie s was provided with instructions on use. Rx Diclofenac 75mg twice daily. Patient also instructed on alternating the use of heat and ice [facility] Other 02-09-2023 Evaluation note* Encounter Date Diagnosis [...] had no futher questions at this time. [facility] Other 02-01-2023 History general Narrative - Reported* Type Description Date Medical History diabetes mallitus Surgical History gallbladder removal- [facility] Surgical History right knee cyst removal Surgical History broken nose Surgical History Left Elbow Lateral Epicondylar Release 04/20/2022 Hospitalization History see above Hospitalization History pneumonia [facility] Other 01-30-2023 Evaluation note* Encounter Date Diagnosis Assessment Notes Treatment Notes Treatment Clinical Notes Mar, Other specified postprocedural states (ICD-10 - Z98.890) [facility] Other 01-10-2023 Evaluation note* Encounter Date Diagnosis [...] proceed. Mar, Pre-op exam (ICD-10 - Z01.818) [facility] Other 10-20-2022 Evaluation note* Encounter Date Diagnosis [...] upper extremity/hand specialist for further treatment options. [facility] Other Evaluation noteNo assessment information available [facility] Work Phone: Evaluation noteNo [employer] Other Evaluation note* Diagnosis Onset Date Resolution Status Bronchitis acute [facility] Work Phone: History general Narrative - Reported* Type Description Date Medical History diabetes mallitus Surgical History gallbladder revmoval Surgical History right knee cyst removal Surgical History broken nose Hospitalization History see above Hospitalization History pneumonia [facility] Other Hisnaly general Narrative - Reported* Type Description Date Medical History diabetes mallitus Medical History GERD Surgical History gallbladder removal- [facility] Surgical History right knee cyst removal Surgical History broken nose Surgical History Left Elbow Lateral Epicondylar Release 04/20/2022 Hospitalization History see above Hospitalization History pneumonia [facility] Other Hisrzxn general Narrative - Reported* Type Description Date Medical History diabetes mallitus Medical History GERD Medical History COPD/Asthma Medical History hyperthyroid Surgical History gallbladder removal- [facility] Surgical History right knee cyst removal Surgical History broken nose Surgical History Left Elbow Lateral Epicondylar Release 04/20/2022 Hospitalization History see above Hospitalization History pneumonia [facility] Other Hospital Discharge instructions Additional Instructions The [...] be seen in one week. 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 ICD 9 CODER-C Primary Care Provider Active Team Status: Inactive Member Role Status Dates Milagro Mejias APRN ICD 9 CODER-C Primary Care Provider, Attending Provider Active Team Status: Inactive Member Role Status Dates Milagro Mejias APRN ICD 9 CODER-C Attending Provider Act clary Start: April 06, 2023 End: April 06, 2023 Team Status: Inactive Member Role Status Dates Milagro Mejias APRN ICD 9 CODER-C Primary Care Provider, Attending Provider Active Start: May 29, 2023 End: May 29, 2023 Team Status: Inactive Member Role Status Dates Milagro Mejias APRN ICD 9 CODER-C Primary Care Provider, Attending Provider Active Start: July 03, 2023 End: July 03, 2023 Kourtney Woods MD Other Provider Active Start: July 03, 2023 End: July 03, 2023 Team Status: Inactive Member Role Status Dates Milagro Mejias APRN ICD 9 CODER-C Primary Care Provider Active Start: October 30, [...] BE BASED ON THE PRIMARY CLINICAL RECORDS. [facility] [email or web address] provides no warranty or guarantee of the accuracy or completeness of information in this document.
== END 2024-04-22 15:48 | disposition home or self-care (01) ==
LOC: CT 15:47
PROVIDERS: PCP Nurse Practitioner Family; Visit Provider Internal Medicine
DX: R91.8 Other nonspecific abnormal finding of lung field (principal)
CPT/HCPCS: 71250